=== PATIENT | female | born 1975 | race Caucasian/White ===

== ENCOUNTER 2017-03-22 16:53 | Inpatient (IN) | payer SELFPAY ==
--- NOTE | 2017-03-22 17:43 | ER Document Report ---
ED Medical Screen (RME) - General Chief Complaint: Abdominal Pain Stated Complaint: ABDOMINAL PAIN Time Seen by Provider: 03/22/17 17:42 Notes: Patient had gastric bypass in 2004 and a cholecystectomy. She states she has chronic diarrhea. She states her diarrhea is worse than normal yesterday so she took several Imodium. After this she began to have severe abdominal pain with some nausea and vomiting. TRAVEL OUTSIDE OF THE [place] IN LAST 30 DAYS: No - Related Data Allergies/Adverse Reactions: Penicillins Allergy (Verified 03/22/17 16:58) Past Medical History Renal/ Medical History: Denies: Hx Peritoneal Dialysis Physical Exam - Vital signs Vitals: Temp Pulse Resp BP Pulse Ox 89.5 F L 105 H 16 150/92 H 100 03/22/17 16:55 03/22/17 16:55 03/22/17 16:55 03/22/17 16:55 03/22/17 16:55 Course - Vital Signs Vital signs: Temp Pulse Resp BP Pulse Ox 89.5 F L 105 H 16 150/92 H 100 03/22/17 16:55 03/22/17 16:55 03/22/17 16:55 03/22/17 16:55 03/22/17 16:55
[2017-03-22 18:24] LABS: ABSOLUTE LYMPHOCYTES (AUTO) 0.9 10^3/uL (0.5-4.7); ABSOLUTE MONOCYTES (AUTO) 0.7 10^3/uL (0.1-1.4); ABSOLUTE NEUT (AUTO) 6.4 10^3/uL (1.7-8.2); BASOPHILS % (AUTO) 0.3 % (0-2); EOSINOPHILS % (AUTO) 0.6 % (0-6); HEMATOCRIT 43.5 % (36.0-47.0); HEMOGLOBIN 14.8 g/dL (12.0-15.5); HGB HCT DIFFERENCE 0.9; LYMPHOCYTES % (AUTO) 10.9 % (13-45); MEAN CORPUSCULAR HEMOGLOBIN 35.3 pg (27.0-33.4); MEAN CORPUSCULAR HGB CONC 34.1 g/dL (32.0-36.0); MEAN CORPUSCULAR VOLUME 103 fl (80-97); MONOCYTES % (AUTO) 8.4 % (3-13); RED BLOOD COUNT 4.21 10^6/uL (3.72-5.28); RED CELL DISTRIBUTION WIDTH 20.4 % (11.5-14.0); SEGMENTED NEUTROPHILS % (AUTO) 79.8 % (42-78)
[2017-03-22] MEDS ORDERED: DICYCLOMINE HCL INJ 20 MG/2 ML AMPULE IM ONE (18:30)
--- NOTE | 2017-03-22 18:30 | ER Document Report ---
ED General - General Chief Complaint: Abdominal Pain Stated Complaint: ABDOMINAL PAIN Time Seen by Provider: 03/22/17 17:42 Mode of Arrival: Ambulatory Information source: Patient Notes: 41-year-old female history of gastric bypass cholecystectomy resents with complaints of abdominal cramping. Patient notes that she always has diarrhea took to antidiarrheal medications [id number] and since then has been feeling that she is constipated and bloated. Patient denies any fevers or chills patient states she vomited a little TRAVEL OUTSIDE OF THE [place] IN LAST 30 DAYS: No - HPI Onset: This morning - 2 AM Onset/Duration: Sudden Quality of pain: Cramping Severity: Mild Pain Level: 1 Associated symptoms: Diarrhea, Nausea, Vomiting Exacerbated by: Denies Relieved by: Denies Similar symptoms previously: No Recently seen / treated by doctor: No - Related Data Allergies/Adverse Reactions: Penicillins Allergy (Verified 03/22/17 16:58) Past Medical History - Social History Smoking Status: Current Every Day Smoker Cigarette use (# per day): Yes Chew tobacco use (# tins/day): No Smoking Education Provided: No Frequency of alcohol use: None Drug Abuse: None Family History: Reviewed & Not Pertinent Renal/ Medical History: Denies: Hx Peritoneal Dialysis Past Surgical History: Reports: Hx Abdominal Surgery - gastric bypass, Hx Cholecystectomy Review of Systems - Review of Systems Notes: REVIEW OF SYSTEMS: CONSTITUTIONAL : Denies fever, chills, or sweats. Denies recent illness. EENT: Denies eye, ear, throat, or mouth pain or symptoms. Denies nasal or sinus congestion or discharge. Denies throat, tongue, or mouth swelling or difficulty swallowing. CARDIOVASCULAR: Denies chest pain. Denies palpitations or racing or irregular heart beat. Denies ankle edema. RESPIRATORY: Denies cough, cold, or chest congestion. Denies shortness of breath, difficulty breathing, or wheezing. GASTROINTESTINAL: Admits to nausea vomiting abdominal cramping GENITOURINARY: Denies difficulty urinating, painful urination, burning, frequency, blood in urine, or discharge. FEMALE GENITOURINARY: Denies vaginal bleeding, heavy or abnormal periods, irregular periods. Denies vaginal discharge or odor. MUSCULOSKELETAL: Denies back or neck pain or stiffness. Denies joint pain or swelling. SKIN: Denies rash, lesions or sores. HEMATOLOGIC : Denies easy bruising or bleeding. LYMPHATIC: Denies swollen, enlarged glands. NEUROLOGICAL: Denies confusion or altered mental status. Denies passing out or loss of consciousness. Denies dizziness or lightheadedness. Denies headache. Denies weakness or paralysis or loss of use of either side. Denies problems with gait or speech. Denies sensory loss, numbness, or tingling. Denies seizures. PSYCHIATRIC: Denies anxiety or stress. Denies depression, suicidal ideation, or homicidal ideation. ALL OTHER SYSTEMS REVIEWED AND NEGATIVE. PHYSICAL EXAMINATION: GENERAL: Well-appearing, well-nourished and in no acute distress. HEAD: Atraumatic, normocephalic. EYES: Pupils equal round and reactive to light, extraocular movements intact, conjunctiva are normal. ENT: Nares patent, oropharynx clear without exudates. Moist mucous membranes. NECK: Normal range of motion, supple without lymphadenopathy LUNGS: Breath sounds clear to auscultation bilaterally and equal. No wheezes rales or rhonchi. HEART: Regular rate and rhythm without murmurs ABDOMEN: Soft, tender in the left upper quadrant Female : deferred Musculoskeletal: Normal range of motion, no pitting or edema. No cyanosis. NEUROLOGICAL: Cranial nerves grossly intact. Normal speech, normal gait. Normal sensory, motor exams PSYCH: Normal mood, normal affect. SKIN: Warm, Dry, normal turgor, no rashes or lesions noted. Dictation was performed using Outline voice recognition software Physical Exam - Vital signs Vitals: Temp Pulse Resp BP Pulse Ox 98.5 F 105 H 16 150/92 H 100 03/22/17 16:55 03/22/17 16:55 03/22/17 16:55 03/22/17 16:55 03/22/17 16:55 Course - Re-evaluation Re-evalutation: 03/22/17 18:30 Patient overall looks quite well x-ray pending 03/22/17 18:56 Patient is noted to have pancreatitis she does admit to drinking yesterday has had no history of pancreatitis in the past 03/22/17 19:23 Patient will be observed in the hospital for acute pancreatitis - Vital Signs Vital signs: Temp Pulse Resp BP Pulse Ox 98.0 F 105 H 16 150/92 H 100 03/22/17 18:17 03/22/17 16:55 03/22/17 16:55 03/22/17 16:55 03/22/17 16:55 - Laboratory Result Diagrams: 03/22/17 17:55 03/22/17 17:55 Laboratory results interpreted by me: 03/22/17 03/22/17 03/22/17 17:55 17:55 17:55 MCV 103 H MCH 35.3 H RDW 20.4 H Seg Neutrophils % 79.8 H Lymphocytes % 10.9 L Sodium 136.4 L Potassium 3.5 L BUN 6 L AST 65 H Alkaline Phosphatase 208 H Lipase 3009.6 H Urine Blood LARGE H - Diagnostic Test Radiology reviewed: Image reviewed, Reports reviewed
[2017-03-22 18:38] LABS: ALANINE AMINOTRANSFERASE 36 U/L (9-52); ALBUMIN 3.5 g/dL (3.5-5.0); ALKALINE PHOSPHATASE 208 U/L (38-126); ANION GAP 10 (5-19); ASPARTATE AMINO TRANSFERASE 65 U/L (14-36); BILIRUBIN,DIRECT 0.4 mg/dL (0.0-0.4); BILIRUBIN,TOTAL 1.1 mg/dL (0.2-1.3); BLOOD UREA NITROGEN 6 mg/dL (7-20); CALCIUM 8.7 mg/dL (8.4-10.2); CARBON DIOXIDE 27 mmol/L (22-30); CHLORIDE 99 mmol/L (98-107); CREATININE RESULT 0.55 mg/dL (0.52-1.25); GLUCOSE 109 mg/dL (75-110); POTASSIUM 3.5 mmol/L (3.6-5.0); SODIUM 136.4 mmol/L (137-145); TOTAL PROTEIN 6.8 g/dL (6.3-8.2)
[2017-03-22 18:39] LABS: APPEARANCE,URINE CLEAR; BILIRUBIN,URINE NEGATIVE (NEGATIVE); GLUCOSE, URINE NEGATIVE (NEGATIVE); KETONES,URINE NEGATIVE (NEGATIVE); LEUKOCYTE ESTERASE,URINE NEGATIVE (NEGATIVE); NITRITE,URINE NEGATIVE (NEGATIVE); PROTEIN,URINE NEGATIVE (NEGATIVE); URINE SPECIFIC GRAVITY 1.017; UROBILINOGEN,URINE NEGATIVE mg/dL (<2.0)
[2017-03-22 18:48] LABS: LIPASE 3009.6 U/L (23-300)
[2017-03-22] MEDS ORDERED: HYDROMORPHONE HCL INJ/PF 2 MG/ML AMPULE IV ONE (18:52)
[2017-03-22] MEDS: NORMAL SALINE 1000 ML 1,000 ML IV PRN ×2 (19:15→21:30)
--- NOTE | 2017-03-22 19:20 | RADIOLOGY REPORT (SQ) ---
EXAM DESCRIPTION: ACUTE ABDOMEN SERIES COMPLETED DATE/TIME: 03/22/2017 7:04 pm REASON FOR STUDY: n/v abd pain COMPARISON: None. NUMBER OF VIEWS: Three views. TECHNIQUE: PA chest, supine abdomen and upright/decubitus abdomen radiographic images acquired. LIMITATIONS: None. FINDINGS: CHEST: Lungs clear of infiltrates. FREE AIR: None. No abnormal gas collections. BOWEL GAS PATTERN: Few scattered small bowel loops with air fluid levels. No distended large or small bowel loops. CALCIFICATIONS: No suspicious calcifications. HARDWARE: Cholecystectomy clips. Suture material in the left upper quadrant. SOFT TISSUES: No gross mass or suggestion of organomegaly. BONES: No acute fracture. No worrisome bone lesions. OTHER: No other significant finding. IMPRESSION: NONSPECIFIC BOWEL GAS PATTERN WITHOUT EVIDENCE FOR OBSTRUCTION. TECHNICAL DOCUMENTATION: JOB ID: [id number] [employer]- All Rights Reserved
[2017-03-22] MEDS ORDERED: ONDANSETRON HCL INJ/PF 4 MG/2 ML SDV IV PRN (19:24)
[2017-03-22] MEDS ORDERED: IPRATROPIUM/ALBUTEROL 0.5-2.5 MG/3 ML AMPUL NEB PRN (19:24)
[2017-03-22] MEDS: NORMAL SALINE 1000 ML 1,000 ML IV SCH (22:33)
[2017-03-22] MEDS: KETOROLAC TROMETHAMINE INJ/PF 30 MG/1 ML SDV IV PRN (22:33)
[2017-03-22] MEDS: HEPARIN SOD (PORCINE) 5,000 UNIT/ML 1 ML SYRINGE SUBCUT SCH (22:33)
[2017-03-22] MEDS: MAGNESIUM SULFATE/D5W 1 GM/100 ML RTUPB IV SCH (22:33)
[2017-03-23] MEDS: MAGNESIUM SULFATE/D5W 1 GM/100 ML RTUPB IV SCH (01:25)
[2017-03-23] MEDS ORDERED: INFLUENZA ADLT QUAD (36MOS+) 2017-18 VAC 0.5 ML SYR IM PRN ×2 (01:43→09:30)
[2017-03-23] MEDS: KETOROLAC TROMETHAMINE INJ/PF 30 MG/1 ML SDV IV PRN ×2 (03:46→11:11)
[2017-03-23] MEDS: NORMAL SALINE 1000 ML 1,000 ML IV SCH (05:13)
[2017-03-23] MEDS: HEPARIN SOD (PORCINE) 5,000 UNIT/ML 1 ML SYRINGE SUBCUT SCH ×3 (05:34→21:34)
[2017-03-23 06:12] LABS: ABSOLUTE EOSINOPHILS # (AUTO) 0.1 10^3/uL (0.0-0.6); ABSOLUTE LYMPHOCYTES (AUTO) 0.6 10^3/uL (0.5-4.7); ABSOLUTE MONOCYTES (AUTO) 0.4 10^3/uL (0.1-1.4); ABSOLUTE NEUT (AUTO) 3.5 10^3/uL (1.7-8.2); BASOPHILS % (AUTO) 0.3 % (0-2); EOSINOPHILS % (AUTO) 1.7 % (0-6); HEMATOCRIT 35.7 % (36.0-47.0); HGB HCT DIFFERENCE 0.6; LYMPHOCYTES % (AUTO) 13.9 % (13-45); MEAN CORPUSCULAR HEMOGLOBIN 35.1 pg (27.0-33.4); MEAN CORPUSCULAR HGB CONC 33.9 g/dL (32.0-36.0); MEAN CORPUSCULAR VOLUME 104 fl (80-97); MONOCYTES % (AUTO) 9.4 % (3-13); RED BLOOD COUNT 3.45 10^6/uL (3.72-5.28); RED CELL DISTRIBUTION WIDTH 20.3 % (11.5-14.0); SEGMENTED NEUTROPHILS % (AUTO) 74.7 % (42-78); WHITE BLOOD COUNT 4.7 10^3/uL (4.0-10.5)
[2017-03-23 06:33] LABS: ALANINE AMINOTRANSFERASE 42 U/L (9-52); ALBUMIN 2.3 g/dL (3.5-5.0); ALKALINE PHOSPHATASE 179 U/L (38-126); ANION GAP 6 (5-19); ASPARTATE AMINO TRANSFERASE 75 U/L (14-36); BILIRUBIN,DIRECT 0.5 mg/dL (0.0-0.4); BLOOD UREA NITROGEN 6 mg/dL (7-20); CALCIUM 7.6 mg/dL (8.4-10.2); CARBON DIOXIDE 25 mmol/L (22-30); CHLORIDE 105 mmol/L (98-107); CREATININE RESULT 0.47 mg/dL (0.52-1.25); GLUCOSE 88 mg/dL (75-110); POTASSIUM 3.2 mmol/L (3.6-5.0); SODIUM 136.4 mmol/L (137-145); TOTAL PROTEIN 4.7 g/dL (6.3-8.2)
[2017-03-23] MEDS ORDERED: LORAZEPAM INJ 2 MG/1 ML VIAL IV PRN (06:36)
--- NOTE | 2017-03-23 06:36 | PDOC H&P ---
History of Present Illness Admission Date/PCP: 03/22/17 19:24 Patient complains of: Epigastric pain History of Present Illness: FEDE IYER is a 41 year old female with past medical history of tobacco and alcohol, status post gastric bypass and cholecystectomy. Patient been her usual state of health until approximately 12 hours prior to presentation with epigastric pain nausea and loose stools after alcohol. Patient denies previous episode. Pain is dull in nature without radiation to the back but exacerbated by p.o. intake. In the emergency room she is found to have a lipase of 3000 and referred to the hospitalist for admission. Past Medical History Psychiatric Medical History: Reports: Alcohol Dependency, Tobacco Dependency Past Surgical History Past Surgical History: Reports: Cholecystectomy, Gastric Bypass Surgery Social History Information Source: Patient Smoking Status: Current Every Day Smoker Frequency of Alcohol Use: Social Drugs: None - Advance Directive Resuscitation Status: Full Code Family History Family History: Hypertension, Other - Breast cancer Parental Family History Reviewed: Yes Children Family History Reviewed: Yes Sibling(s) Family History Reviewed.: Yes Medication/Allergy Home Medications: No Home Medications 03/22/17 Allergies/Adverse Reactions: Penicillins Allergy (Verified 03/22/17 16:58) Review of Systems Constitutional: ABSENT: chills, fever(s), headache(s), weight gain, weight loss Eyes: ABSENT: visual disturbances Ears: ABSENT: hearing changes Cardiovascular: ABSENT: chest pain, dyspnea on exertion, edema, orthropnea, palpitations Respiratory: ABSENT: cough, hemoptysis Gastrointestinal: ABSENT: abdominal pain, constipation, diarrhea, hematemesis, hematochezia, nausea, vomiting Genitourinary: ABSENT: dysuria, hematuria Musculoskeletal: ABSENT: joint swelling Integumentary: ABSENT: rash, wounds Neurological: ABSENT: abnormal gait, abnormal speech, confusion, dizziness, focal weakness, syncope Psychiatric: ABSENT: anxiety, depression, homidical ideation, suicidal ideation Endocrine: ABSENT: cold intolerance, heat intolerance, polydipsia, polyuria Hematologic/Lymphatic: ABSENT: easy bleeding, easy bruising Physical Exam Vital Signs: Temp Pulse Resp BP Pulse Ox 98.3 F 84 16 139/95 H 98 03/22/17 22:33 03/22/17 22:33 03/22/17 22:33 03/22/17 22:33 03/22/17 22:33 Intake & Output 10/03/2803/22/17 03/23/17 11:59 11:59 11:59 Intake Total 0 Balance 0 Weight 63.7 kg General appearance: PRESENT: no acute distress, well-developed, well-nourished Head exam: PRESENT: atraumatic, normocephalic Eye exam: PRESENT: conjunctiva pink, EOMI, PERRLA. ABSENT: scleral icterus Ear exam: PRESENT: normal external ear exam Mouth exam: PRESENT: moist, tongue midline Neck exam: ABSENT: carotid bruit, JVD, lymphadenopathy, thyromegaly Respiratory exam: PRESENT: clear to auscultation yadiel. ABSENT: rales, rhonchi, wheezes Cardiovascular exam: PRESENT: RRR. ABSENT: diastolic murmur, rubs, systolic murmur Pulses: PRESENT: normal dorsalis pedis pul Vascular exam: PRESENT: normal capillary refill GI/Abdominal exam: PRESENT: normal bowel sounds, soft, tenderness - Epigastric pain. ABSENT: distended, guarding, mass, organolmegaly, rebound Rectal exam: PRESENT: deferred Extremities exam: PRESENT: full ROM. ABSENT: calf tenderness, clubbing, pedal edema Neurological exam: PRESENT: alert, awake, oriented to person, oriented to place , oriented to time, oriented to situation, CN II-XII grossly intact. ABSENT: motor sensory deficit Psychiatric exam: PRESENT: appropriate affect, normal mood. ABSENT: homicidal ideation, suicidal ideation Skin exam: PRESENT: dry, intact, warm. ABSENT: cyanosis, rash Results Impressions: Acute Abdomen Series 03/22/17 18:27 IMPRESSION: NONSPECIFIC BOWEL GAS PATTERN WITHOUT EVIDENCE FOR OBSTRUCTION. Assessment & Plan - Diagnosis (1) Pancreatitis, alcoholic, acute Is this a current diagnosis for this admission?: Yes Plan: Admitted for admission, bowel rest, symptomatic management, IV fluids, electrolyte repletion and education (2) Alcohol dependence Is this a current diagnosis for this admission?: Yes Plan: Thiamine, folate and benzodiazepine as needed (3) Tobacco dependence Is this a current diagnosis for this admission?: Yes Plan: Tobacco Dependence patient received tobacco cessation counseling and offered nicotine replacement options - Time Time Spent: 50 to 70 Minutes - Inpatient Certification Medical Necessity: Need Close Monitoring Due to Risk of Patient Decompensation
[2017-03-23] MEDS ORDERED: FOLIC ACID INJ 5 MG/1 ML 10 ML VIAL IV PRN (06:47)
[2017-03-23] MEDS ORDERED: THIAMINE HCL INJ 200 MG/2 ML VIAL IV PRN (06:47)
[2017-03-23] MEDS ORDERED: THIAMINE HCL 100 MG, FOLIC ACID 1 MG in NORMAL SALINE 250 ML IV ONE (07:00)
[2017-03-23 07:23] LABS: HEMOGLOBIN 12.1 g/dL (12.0-15.5)
[2017-03-23] MEDS: POTASSI CL 20 MEQ/50 ML RIDER 20 MEQ/50 ML RTUPB IV SCH ×2 (08:49→11:11)
[2017-03-23] MEDS: HYDROMORPHONE HCL INJ/PF 2 MG/ML AMPULE IV PRN ×4 (09:25→22:50)
[2017-03-23] MEDS ORDERED: ONDANSETRON HCL INJ/PF 4 MG/2 ML SDV IV PRN (09:30)
[2017-03-23] MEDS ORDERED: IPRATROPIUM/ALBUTEROL 0.5-2.5 MG/3 ML AMPUL NEB PRN (09:30)
--- NOTE | 2017-03-23 10:05 | PDOC PROGRESS REPORT ---
Subjective Progress Note for:: 03/23/17 Subjective:: Complains of upper abdominal pain. Physical Exam Vital Signs: Temp Pulse Resp BP Pulse Ox 98.5 F 83 17 123/79 99 03/23/17 07:14 03/23/17 07:14 03/23/17 07:14 03/23/17 07:14 03/23/17 07:14 Intake & Output 03/22/17 03/23/17 03/24/17 06:59 06:59 06:59 Intake Total 0 Balance 0 Weight 63.7 kg General appearance: PRESENT: no acute distress Eye exam: PRESENT: conjunctiva pink. ABSENT: scleral icterus Mouth exam: PRESENT: moist, tongue midline Neck exam: ABSENT: carotid bruit, JVD, lymphadenopathy, thyromegaly Respiratory exam: PRESENT: clear to auscultation yadiel. ABSENT: rales, rhonchi, wheezes Cardiovascular exam: PRESENT: RRR. ABSENT: diastolic murmur, rubs, systolic murmur GI/Abdominal exam: PRESENT: normal bowel sounds, soft, tenderness - Upper abdominal tenderness. ABSENT: distended, guarding, mass, organolmegaly, rebound Extremities exam: ABSENT: calf tenderness, clubbing, pedal edema Neurological exam: PRESENT: alert, awake, oriented to person, oriented to place , oriented to time, oriented to situation, CN II-XII grossly intact. ABSENT: motor sensory deficit Psychiatric exam: PRESENT: appropriate affect Skin exam: PRESENT: dry, intact, warm. ABSENT: cyanosis, rash Results Laboratory Results: 03/23/17 05:07 03/23/17 05:07 03/23/17 03/23/17 05:07 05:07 WBC 4.7 RBC 3.45 L Hgb 12.1 D Hct 35.7 L MCV 104 H MCH 35.1 H MCHC 33.9 RDW 20.3 H Plt Count 134 L Seg Neutrophils % 74.7 Lymphocytes % 13.9 Monocytes % 9.4 Eosinophils % 1.7 Basophils % 0.3 Absolute Neutrophils 3.5 Absolute Lymphocytes 0.6 Absolute Monocytes 0.4 Absolute Eosinophils 0.1 Absolute Basophils 0.0 Sodium 136.4 L Potassium 3.2 L Chloride 105 Carbon Dioxide 25 Anion Gap 6 BUN 6 L Creatinine 0.47 L Est GFR ( Amer) > 60 Est GFR (Non-Af Amer) > 60 Glucose 88 Calcium 7.6 L Total Bilirubin 1.0 AST 75 H ALT 42 Alkaline Phosphatase 179 H Total Protein 4.7 L Albumin 2.3 L Impressions: Acute Abdomen Series 03/22/17 18:27 IMPRESSION: NONSPECIFIC BOWEL GAS PATTERN WITHOUT EVIDENCE FOR OBSTRUCTION. Assessment & Plan - Diagnosis (1) Pancreatitis, alcoholic, acute Is this a current diagnosis for this admission?: Yes Plan: Patient has continued pain. Will add on Dilaudid. Continue n.p.o. and IV fluids. (2) Alcohol dependence Is this a current diagnosis for this admission?: Yes Plan: No evidence for delirium tremens. (3) Tobacco dependence Is this a current diagnosis for this admission?: Yes Plan: Patient is encouraged to quit. (4) Hypokalemia Is this a current diagnosis for this admission?: Yes Plan: We will give potassium replacements and monitor. - Time Time Spent with patient: 25-34 minutes - Inpatient Certification Medical Necessity: Need for Pain Control, Need for IV Antibiotics
[2017-03-23] MEDS: THIAMINE HCL 100 MG, FOLIC ACID 1 MG in NORMAL SALINE 250 ML IV SCH (14:09)
[2017-03-23] MEDS ORDERED: NORMAL SALINE 1000 ML 1,000 ML IV PRN (18:46)
[2017-03-24] MEDS: HYDROMORPHONE HCL INJ/PF 2 MG/ML AMPULE IV PRN (02:55)
[2017-03-24 04:49] LABS: ABSOLUTE EOSINOPHILS # (AUTO) 0.1 10^3/uL (0.0-0.6); ABSOLUTE LYMPHOCYTES (AUTO) 0.8 10^3/uL (0.5-4.7); ABSOLUTE MONOCYTES (AUTO) 0.4 10^3/uL (0.1-1.4); ABSOLUTE NEUT (AUTO) 3.6 10^3/uL (1.7-8.2); BASOPHILS % (AUTO) 0.2 % (0-2); EOSINOPHILS % (AUTO) 2.5 % (0-6); HEMATOCRIT 33.5 % (36.0-47.0); HEMOGLOBIN 11.3 g/dL (12.0-15.5); HGB HCT DIFFERENCE 0.4; LYMPHOCYTES % (AUTO) 16.8 % (13-45); MEAN CORPUSCULAR HEMOGLOBIN 35.6 pg (27.0-33.4); MEAN CORPUSCULAR HGB CONC 33.7 g/dL (32.0-36.0); MEAN CORPUSCULAR VOLUME 106 fl (80-97); MONOCYTES % (AUTO) 8.5 % (3-13); RED BLOOD COUNT 3.17 10^6/uL (3.72-5.28); RED CELL DISTRIBUTION WIDTH 20.2 % (11.5-14.0)
[2017-03-24 05:07] LABS: ANION GAP 8 (5-19); BLOOD UREA NITROGEN 5 mg/dL (7-20); CALCIUM 7.7 mg/dL (8.4-10.2); CARBON DIOXIDE 20 mmol/L (22-30); CHLORIDE 110 mmol/L (98-107); CREATININE RESULT 0.44 mg/dL (0.52-1.25); GLUCOSE 55 mg/dL (75-110); LIPASE 412.1 U/L (23-300); MAGNESIUM 1.8 mg/dL (1.6-2.3); POTASSIUM 3.8 mmol/L (3.6-5.0); SODIUM 137.5 mmol/L (137-145)
[2017-03-24] MEDS: HEPARIN SOD (PORCINE) 5,000 UNIT/ML 1 ML SYRINGE SUBCUT SCH ×3 (05:26→21:02)
[2017-03-24] MEDS ORDERED: THIAMINE HCL 100 MG, FOLIC ACID 1 MG in NORMAL SALINE 250 ML IV SCH (06:00)
[2017-03-24] MEDS: KETOROLAC TROMETHAMINE INJ/PF 30 MG/1 ML SDV IV PRN (07:30)
[2017-03-24] MEDS: THIAMINE HCL 100 MG, FOLIC ACID 1 MG in NORMAL SALINE 250 ML IV SCH (09:45)
--- NOTE | 2017-03-24 14:48 | PDOC PROGRESS REPORT ---
Subjective Progress Note for:: 03/24/17 Subjective:: Complains of upper abdominal pain. Physical Exam Vital Signs: Temp Pulse Resp BP Pulse Ox 98.6 F 71 16 128/77 H 94 03/24/17 11:43 03/24/17 12:36 03/24/17 12:36 03/24/17 11:43 03/24/17 12:36 Intake & Output 03/23/17 03/24/17 03/25/17 06:59 06:59 06:59 Weight 67.8 kg General appearance: PRESENT: no acute distress Eye exam: PRESENT: conjunctiva pink. ABSENT: scleral icterus Mouth exam: PRESENT: moist, tongue midline Neck exam: ABSENT: JVD Respiratory exam: PRESENT: clear to auscultation yadiel. ABSENT: rales, rhonchi, wheezes Cardiovascular exam: PRESENT: RRR. ABSENT: diastolic murmur, rubs, systolic murmur GI/Abdominal exam: PRESENT: normal bowel sounds, soft, tenderness - Moderate left upper quadrant tenderness.. ABSENT: distended, guarding, mass, organolmegaly, rebound Extremities exam: ABSENT: calf tenderness, clubbing, pedal edema Neurological exam: PRESENT: alert, awake, oriented to person, oriented to place , oriented to time, oriented to situation, CN II-XII grossly intact. ABSENT: motor sensory deficit Psychiatric exam: PRESENT: appropriate affect Skin exam: PRESENT: dry, intact, warm. ABSENT: cyanosis, rash Results Laboratory Results: 03/24/17 04:10 03/24/17 04:10 03/24/17 03/24/17 04:10 04:10 WBC 5.0 RBC 3.17 L Hgb 11.3 L Hct 33.5 L MCV 106 H MCH 35.6 H MCHC 33.7 RDW 20.2 H Plt Count 150 Seg Neutrophils % 72.0 Lymphocytes % 16.8 Monocytes % 8.5 Eosinophils % 2.5 Basophils % 0.2 Absolute Neutrophils 3.6 Absolute Lymphocytes 0.8 Absolute Monocytes 0.4 Absolute Eosinophils 0.1 Absolute Basophils 0.0 Sodium 137.5 Potassium 3.8 Chloride 110 H Carbon Dioxide 20 L Anion Gap 8 BUN 5 L Creatinine 0.44 L Est GFR ( Amer) > 60 Est GFR (Non-Af Amer) > 60 Glucose 55 L Calcium 7.7 L Magnesium 1.8 Lipase 412.1 H Impressions: Acute Abdomen Series 03/22/17 18:27 IMPRESSION: NONSPECIFIC BOWEL GAS PATTERN WITHOUT EVIDENCE FOR OBSTRUCTION. Assessment & Plan - Diagnosis (1) Pancreatitis, alcoholic, acute Is this a current diagnosis for this admission?: Yes Plan: Patient reports decrease in pain. Will start on a diet today to see how she tolerates it. (2) Alcohol dependence Is this a current diagnosis for this admission?: Yes Plan: No evidence for delirium tremens. (3) Tobacco dependence Is this a current diagnosis for this admission?: Yes Plan: Patient is encouraged to quit. (4) Hypokalemia Is this a current diagnosis for this admission?: Yes Plan: Resolved. - Time Time Spent with patient: 25-34 minutes - Inpatient Certification Medical Necessity: Need for Pain Control
[2017-03-24] MEDS: OXYCODONE HCL IR 5 MG TABLET PO PRN ×2 (15:58→22:09)
[2017-03-25 00:07] VITALS: BP 114/81
[2017-03-25 04:34] LABS: ABSOLUTE EOSINOPHILS # (AUTO) 0.1 10^3/uL (0.0-0.6); ABSOLUTE MONOCYTES (AUTO) 0.5 10^3/uL (0.1-1.4); ABSOLUTE NEUT (AUTO) 2.8 10^3/uL (1.7-8.2); BASOPHILS % (AUTO) 0.5 % (0-2); EOSINOPHILS % (AUTO) 2.5 % (0-6); HEMATOCRIT 31.9 % (36.0-47.0); HEMOGLOBIN 10.9 g/dL (12.0-15.5); HGB HCT DIFFERENCE 0.8; LYMPHOCYTES % (AUTO) 23.4 % (13-45); MEAN CORPUSCULAR HEMOGLOBIN 35.1 pg (27.0-33.4); MEAN CORPUSCULAR HGB CONC 34.2 g/dL (32.0-36.0); MEAN CORPUSCULAR VOLUME 103 fl (80-97); MONOCYTES % (AUTO) 10.2 % (3-13); RED CELL DISTRIBUTION WIDTH 19.8 % (11.5-14.0); SEGMENTED NEUTROPHILS % (AUTO) 63.4 % (42-78); WHITE BLOOD COUNT 4.4 10^3/uL (4.0-10.5)
[2017-03-25 04:59] LABS: ANION GAP 8 (5-19); BLOOD UREA NITROGEN 4 mg/dL (7-20); CARBON DIOXIDE 22 mmol/L (22-30); CHLORIDE 108 mmol/L (98-107); CREATININE RESULT 0.49 mg/dL (0.52-1.25); GLUCOSE 83 mg/dL (75-110); LIPASE 515.3 U/L (23-300); MAGNESIUM 1.8 mg/dL (1.6-2.3); POTASSIUM 3.8 mmol/L (3.6-5.0); SODIUM 137.7 mmol/L (137-145)
[2017-03-25] MEDS: HEPARIN SOD (PORCINE) 5,000 UNIT/ML 1 ML SYRINGE SUBCUT SCH (05:56)
--- NOTE | 2017-03-25 10:05 | PDOC DISCHARGE SUMMARY ---
General - Admit/Disc Date/PCP Admission Date/Primary Care Provider: 03/23/17 13:11 Discharge Date: 03/25/17 - Discharge Diagnosis (1) Pancreatitis, alcoholic, acute Is this a current diagnosis for this admission?: Yes (2) Alcohol dependence Is this a current diagnosis for this admission?: Yes (3) Tobacco dependence Is this a current diagnosis for this admission?: Yes (4) Hypokalemia Is this a current diagnosis for this admission?: Yes - Additional Information Resuscitation Status: Full Code Discharge Diet: Regular Discharge Activity: Activity As Tolerated Home Medications: Flu Vacc [id number] Up/Pf [Fluzone Adlt Quad [id number] Vac 0.5 ml Syr] 0.5 ml IM .AT DISCHARGE PRN disp.syrin 03/25/17 Oxycodone HCl [Oxy-Ir 5 mg Tablet] 5 mg PO Q6HP PRN #14 tablet 03/25/17 History of Present Illness History of Present Illness: FEDE IYER is a 41 year old female with a history of gastric bypass who presented with abdominal pain. Patient left upper quadrant pain consistent with acute pancreatitis. Patient has been drinking significant amount of alcohol. Patient however has not had any fevers or chills. She is found to have acute pancreatitis is admitted for management of her pain. Hospital Course Hospital Course: 41-year-old female with alcohol use who presents with acute alcoholic pancreatitis. The patient was made n.p.o. and given IV fluids and IV narcotics. Patient had improvement in her pain and her IV pain medication was switched to p.o. and her diet was advanced. She was able to tolerate the diet without difficulty. The patient has been counseled that she must stop drinking any alcohol at all. She is agreeable to do this. The patient was tolerating a diet well and she will be sent home with oxycodone to use as needed. Physical Exam Vital Signs: Temp Pulse Resp BP Pulse Ox 98.3 F 81 17 114/81 100 03/25/17 08:09 03/25/17 09:01 03/25/17 09:01 03/25/17 08:09 03/25/17 09:01 Intake & Output 03/24/17 03/25/17 03/26/17 06:59 06:59 06:59 Intake Total 2710 Output Total 1100 Balance 1610 Weight 67.8 kg General appearance: PRESENT: no acute distress Eye exam: PRESENT: conjunctiva pink. ABSENT: scleral icterus Mouth exam: PRESENT: moist, tongue midline Neck exam: ABSENT: JVD Respiratory exam: PRESENT: clear to auscultation yadiel. ABSENT: rales, rhonchi, wheezes Cardiovascular exam: PRESENT: RRR. ABSENT: diastolic murmur, rubs, systolic murmur Pulses: PRESENT: normal dorsalis pedis pul GI/Abdominal exam: PRESENT: normal bowel sounds, soft. ABSENT: distended, guarding, mass, organolmegaly, rebound, tenderness Extremities exam: ABSENT: calf tenderness, clubbing, pedal edema Neurological exam: PRESENT: alert, awake, oriented to person, oriented to place , oriented to time, oriented to situation, CN II-XII grossly intact. ABSENT: motor sensory deficit Psychiatric exam: PRESENT: appropriate affect Skin exam: PRESENT: dry, intact, warm. ABSENT: cyanosis, rash Results Laboratory Results: 03/25/17 04:14 03/25/17 04:14 03/25/17 03/25/17 04:14 04:14 WBC 4.4 RBC 3.10 L Hgb 10.9 L Hct 31.9 L MCV 103 H MCH 35.1 H MCHC 34.2 RDW 19.8 H Plt Count 160 Seg Neutrophils % 63.4 Lymphocytes % 23.4 Monocytes % 10.2 Eosinophils % 2.5 Basophils % 0.5 Absolute Neutrophils 2.8 Absolute Lymphocytes 1.0 Absolute Monocytes 0.5 Absolute Eosinophils 0.1 Absolute Basophils 0.0 Sodium 137.7 Potassium 3.8 Chloride 108 H Carbon Dioxide 22 Anion Gap 8 BUN 4 L Creatinine 0.49 L Est GFR ( Amer) > 60 Est GFR (Non-Af Amer) > 60 Glucose 83 Calcium 8.0 L Magnesium 1.8 Lipase 515.3 H Impressions: Acute Abdomen Series 03/22/17 18:27 IMPRESSION: NONSPECIFIC BOWEL GAS PATTERN WITHOUT EVIDENCE FOR OBSTRUCTION. Qualifiers PATEINT BEING DISCHARGED WITH ANY OF THE FOLLOWING DIAGNOSIS?: No Plan Discharge Plan: Patient is discharged home in stable condition. Will follow up with primary care in the next 2 weeks. Patient has been counseled to abstain from alcohol. Time Spent: Less than 30 Minutes
== END 2017-03-25 08:55 | disposition home or self-care (01) | DRG 440 ==
LOC: ER 16:53 → EH 19:24 → 4N 22:08 → OBSVTOIN 03-23 13:11
PROVIDERS: ADMIT Internal Medicine; ATTEND Internal Medicine
PROC: 3E0234Z Introduction of Serum, Toxoid and Vaccine into Muscle, Percutaneous Approach (ICD-10-PCS; principal; 2017-03-25)
DX: K85.20 Alcohol induced acute pancreatitis without necrosis or infection (principal); F10.20 Alcohol dependence, uncomplicated; F17.210 Nicotine dependence, cigarettes, uncomplicated; E87.6 Hypokalemia; Z98.84 Bariatric surgery status; Z90.49 Acquired absence of other specified parts of digestive tract; Z87.891 Personal history of nicotine dependence; Z88.0 Allergy status to penicillin; Z23 Encounter for immunization
CPT/HCPCS: 36415; 74022; 80048; 80053; 81001; 81025; 83690; 83735; 85025; 96361; 96374; 99285; G0378; J1170; J1644; J1885; J2405; J3411; J3475; J3480; J3490; J7030; J7050

== ENCOUNTER 2017-05-23 12:58 | Emergency (ER) | payer SELFPAY ==
--- NOTE | 2017-05-23 13:23 | ER Document Report ---
ED Medical Screen (RME) - General Chief Complaint: Abdominal Pain Stated Complaint: BACK PAIN, ABDOMINAL PAIN Time Seen by Provider: 05/23/17 13:17 Notes: 41-year-old female patient past history of gastric bypass, cholecystectomy, admitted here on 03/22/2017 with EtOH pancreatitis. Reports family argument prompted her to drink alcohol on Monday, Monday, and Monday. Yesterday she developed pain with some vomiting in the epigastric left upper quadrant area. After the vomiting she thinks she strained her back and is having pain in the low back shooting up both sides. I have greeted and performed a rapid initial assessment of this patient. A comprehensive ED assessment and evaluation of the patient, analysis of test results and completion of the medical decision making process will be conducted by additional ED providers. TRAVEL OUTSIDE OF THE [place] IN LAST 30 DAYS: No - Related Data Allergies/Adverse Reactions: Penicillins Allergy (Verified 05/23/17 13:18) Past Medical History - Social History Chew tobacco use (# tins/day): No Frequency of alcohol use: Heavy Drug Abuse: None Renal/ Medical History: Denies: Hx Peritoneal Dialysis Past Surgical History: Reports: Hx Abdominal Surgery - gastric bypass, Hx Cholecystectomy, Hx Gastric Bypass Surgery - Immunizations History of Influenza Vaccine for 03/2017 - 08/2017 Season: No Physical Exam - Vital signs Vitals: Temp Pulse Resp BP Pulse Ox 98.9 F 113 H 18 129/93 H 96 05/23/17 13:04 05/23/17 13:04 05/23/17 13:04 05/23/17 13:04 05/23/17 13:04 Course - Vital Signs Vital signs: Temp Pulse Resp BP Pulse Ox 98.9 F 113 H 18 129/93 H 96 05/23/17 13:04 05/23/17 13:04 05/23/17 13:04 05/23/17 13:04 05/23/17 13:04
[2017-05-23 13:54] LABS: ABSOLUTE LYMPHOCYTES (AUTO) 0.9 10^3/uL (0.5-4.7); ABSOLUTE MONOCYTES (AUTO) 0.3 10^3/uL (0.1-1.4); ABSOLUTE NEUT (AUTO) 2.4 10^3/uL (1.7-8.2); BASOPHILS % (AUTO) 0.4 % (0-2); EOSINOPHILS % (AUTO) 0.6 % (0-6); HEMATOCRIT 44.1 % (36.0-47.0); HEMOGLOBIN 14.6 g/dL (12.0-15.5); HGB HCT DIFFERENCE -0.3; LYMPHOCYTES % (AUTO) 24.3 % (13-45); MEAN CORPUSCULAR HGB CONC 33.2 g/dL (32.0-36.0); MEAN CORPUSCULAR VOLUME 93 fl (80-97); RED BLOOD COUNT 4.73 10^6/uL (3.72-5.28); RED CELL DISTRIBUTION WIDTH 21.3 % (11.5-14.0); SEGMENTED NEUTROPHILS % (AUTO) 66.7 % (42-78); WHITE BLOOD COUNT 3.6 10^3/uL (4.0-10.5)
[2017-05-23 14:03] LABS: APPEARANCE,URINE CLOUDY; BILIRUBIN,URINE SMALL (NEGATIVE); GLUCOSE, URINE NEGATIVE (NEGATIVE); KETONES,URINE 20 mg/dL (NEGATIVE); LEUKOCYTE ESTERASE,URINE LARGE (NEGATIVE); NITRITE,URINE POSITIVE (NEGATIVE); PROTEIN,URINE 100 mg/dL (NEGATIVE); URINE SPECIFIC GRAVITY 1.021
[2017-05-23 14:13] LABS: ALANINE AMINOTRANSFERASE 152 U/L (9-52); ALBUMIN 4.7 g/dL (3.5-5.0); ALKALINE PHOSPHATASE 91 U/L (38-126); ANION GAP 11 (5-19); ASPARTATE AMINO TRANSFERASE 250 U/L (14-36); BILIRUBIN,DIRECT 0.7 mg/dL (0.0-0.4); BILIRUBIN,TOTAL 1.4 mg/dL (0.2-1.3); BLOOD UREA NITROGEN 3 mg/dL (7-20); CALCIUM 9.8 mg/dL (8.4-10.2); CARBON DIOXIDE 26 mmol/L (22-30); CHLORIDE 98 mmol/L (98-107); CREATININE RESULT 0.64 mg/dL (0.52-1.25); GLUCOSE 99 mg/dL (75-110); LIPASE 249.1 U/L (23-300); MAGNESIUM 1.7 mg/dL (1.6-2.3); POTASSIUM 4.1 mmol/L (3.6-5.0); TOTAL PROTEIN 8.3 g/dL (6.3-8.2)
[2017-05-23] MEDS ORDERED: CEPHALEXIN 500 MG CAPSULE PO ONE (18:28)
[2017-05-23] MEDS ORDERED: MORPHINE SULFATE IR 15 MG TABLET PO ONE (18:28)
[2017-05-23] MEDS ORDERED: IBUPROFEN 600 MG TABLET PO ONE (18:28)
[2017-05-23] MEDS ORDERED: LIDOCAINE 5% (700 MG) TRANSDERMAL ADH..PATCH TP ONE (18:30)
--- NOTE | 2017-05-23 18:40 | ER Document Report ---
ED General - General Chief Complaint: Abdominal Pain Stated Complaint: BACK PAIN, ABDOMINAL PAIN Time Seen by Provider: 05/23/17 13:17 Notes: Patient is a 41-year-old female with a past medical history of alcoholism, recurrent alcoholic hepatitis, recurrent pancreatitis who presents with 3 days of bilateral flank tenderness, suprapubic tenderness and nausea. Patient admits to heavy alcohol use on Monday through Monday but reports she has been sober yesterday and today. She describes the pain in her abdomen as being mostly localized to the suprapubic quadrant as well as her bilateral flanks. It is a dull, constant, throbbing pain. Nothing improves or worsens the pain. She states that she is uncertain of whether or not she has had similar symptoms in the past. She notes that she has been nauseated but has been able to tolerate oral intake and has not had any vomiting. No diarrhea. She does note dysuria as well as cloudy urine. She has not seen a primary care doctor regarding today's concerns. She denies any associated fever or constitutional symptoms. She has a surgical history of a gastric bypass as well as a cholecystectomy TRAVEL OUTSIDE OF THE [place] IN LAST 30 DAYS: No - Related Data Allergies/Adverse Reactions: Penicillins Allergy (Verified 05/23/17 13:18) Past Medical History - General Information source: Patient - Social History Smoking Status: Current Every Day Smoker Chew tobacco use (# tins/day): No Frequency of alcohol use: Heavy Drug Abuse: None Lives with: Family Family History: Hypertension, Other - Breast cancer Patient has suicidal ideation: No Patient has homicidal ideation: No Renal/ Medical History: Denies: Hx Peritoneal Dialysis Past Surgical History: Reports: Hx Abdominal Surgery - gastric bypass, Hx Cholecystectomy, Hx Gastric Bypass Surgery Review of Systems - Review of Systems Notes: Constitutional: Negative for fever. HENT: Negative for sore throat. Eyes: Negative for visual changes. Cardiovascular: Negative for chest pain. Respiratory: Negative for shortness of breath. Gastrointestinal: Positive for abdominal pain and nausea Genitourinary: Positive for dysuria. Musculoskeletal: Negative for back pain. Skin: Negative for rash. Neurological: Negative for headaches, weakness or numbness. 10 point ROS negative except as marked above and in HPI. Physical Exam - Vital signs Vitals: Temp Pulse Resp BP Pulse Ox 98.9 F 113 H 18 129/93 H 96 05/23/17 13:04 05/23/17 13:04 05/23/17 13:04 05/23/17 13:04 05/23/17 13:04 Interpretation: Tachycardic Notes: PHYSICAL EXAMINATION: GENERAL: Well-appearing, well-nourished and in no acute distress. HEAD: Atraumatic, normocephalic. EYES: Pupils equal round and reactive to light, extraocular movements intact, sclera anicteric, conjunctiva are normal. ENT: nares patent, oropharynx clear without exudates. Moderately dry mucous membranes. NECK: Normal range of motion, supple without lymphadenopathy LUNGS: Breath sounds clear to auscultation bilaterally and equal. No wheezes rales or rhonchi. HEART: Regular rate and rhythm without murmurs ABDOMEN: Soft, mild suprapubic tenderness as well as bilateral CVA tenderness otherwise no localized tenderness, normoactive bowel sounds. No guarding, no rebound. No masses appreciated. EXTREMITIES: Normal range of motion, no pitting or edema. No cyanosis. NEUROLOGICAL: No focal neurological deficits. Moves all extremities spontaneously and on command. PSYCH: Normal mood, normal affect. SKIN: Warm, Dry, normal turgor, no rashes or lesions noted. Course - Re-evaluation Re-evalutation: 05/23/17 18:37 Presentation is most consistent with acute pyelonephritis. Laboratories do demonstrate a large amount of white blood cells in the urine as well as bacteria. CVA tenderness is present on exam. The remainder laboratories are relatively unremarkable with the exception of a mild transaminitis consistent with acute alcohol use given the predominance of AST and patient does admit to help with alcohol use in the past 3-4 days. There is no evidence of renal dysfunction. I do not suspect an acute appendicitis, biliary pathology, pancreatitis, intra-abdominal abscess, or tubo-ovarian abscess based on history and examination. Patient is able to tolerate oral intake without difficulty. Will be discharged home on 7 day course of cephalexin. A urine culture has been sent. At this time will discharge with return precautions and follow-up recommendations. Verbal discharge instructions given a the bedside and opportunity for questions given. Medication warnings reviewed. Patient is in agreement with this plan and has verbalized understanding of return precautions and the need for primary care follow-up in the next 24-72 hours. - Vital Signs Vital signs: Temp Pulse Resp BP Pulse Ox 98.3 F 96 20 141/76 H 98 05/23/17 19:16 05/23/17 19:16 05/23/17 19:16 05/23/17 19:16 05/23/17 19:16 - Laboratory Result Diagrams: 05/23/17 13:32 05/23/17 13:32 Laboratory results interpreted by me: 05/23/17 05/23/17 05/23/17 13:32 13:32 13:32 WBC 3.6 L RDW 21.3 H Plt Count 108 L Sodium 135.0 L BUN 3 L Total Bilirubin 1.4 H Direct Bilirubin 0.7 H AST 250 H ALT 152 H Total Protein 8.3 H Urine Protein 100 H Urine Ketones 20 H Urine Blood LARGE H Urine Nitrite POSITIVE H Urine Bilirubin SMALL H Urine Urobilinogen 2.0 H Ur Leukocyte Esterase LARGE H Discharge - Discharge Clinical Impression: Acute pyelonephritis Alcoholic hepatitis Qualifiers: Ascites presence: without ascites Qualified Code(s): K70.10 - Alcoholic hepatitis without ascites Condition: Good Disposition: HOME, SELF-CARE Additional Instructions: You have been diagnosed with a condition called pyelonephritis which is an infection involving your kidneys and bladder. You have been given a dose of antibiotics here in the emergency department to help begin to treat this infection. Your also being sent home on antibiotics. Please start taking these later on today when you fill the prescription. Complete the course even if you feel better. Please return if you have persistent vomiting, pass out, have worsening pain, become unable to tolerate fluids, or have any other symptoms that are concerning to you. Please follow-up with your primary care physician in the next 24-48 hours. Please also continue to avoid alcohol some of your liver functions are elevated due to your alcohol use. Prescriptions: Metronidazole [Metrogel 0.75% Vaginal Gel] 1 applic PV QHS 5 Days #1 tube Cephalexin Monohydrate [Keflex 500 mg Capsule] 500 mg PO Q6H 7 Days capsule
[2017-05-23 19:20] VITALS: BP 141/76
== END 2017-05-23 19:10 | disposition home or self-care (01) ==
LOC: ER 12:58
DX: N10 Acute pyelonephritis (principal); K70.10 Alcoholic hepatitis without ascites; F10.20 Alcohol dependence, uncomplicated; Z98.84 Bariatric surgery status; F17.200 Nicotine dependence, unspecified, uncomplicated
CPT/HCPCS: 36415; 80053; 81001; 83690; 83735; 84703; 85025; 87086; 87088; 87186; 99284

== ENCOUNTER 2017-05-24 03:17 | Emergency (ER) | payer SELFPAY ==
[2017-05-24] MEDS ORDERED: KETOROLAC TROMETHAMINE INJ/PF 30 MG/1 ML SDV IM ONE (04:40)
[2017-05-24] MEDS ORDERED: ONDANSETRON 4 MG TAB.RAPDIS PO ONE (04:40)
--- NOTE | 2017-05-24 04:42 | ER Document Report ---
ED General - General Chief Complaint: Abdominal Pain Stated Complaint: UPPER ABDOMINAL PAIN Time Seen by Provider: 05/24/17 04:17 TRAVEL OUTSIDE OF THE [place] IN LAST 30 DAYS: No - HPI Notes: Patient is a 41-year-old female who presents the ED complaining of continued abdominal discomfort and low back pain status post discharge diagnosis with UTI <12 hours ago. Patient states that she continues to have pain that is similar to when she was evaluated here in the ED, but did not receive any pain medication and was told that she did not know what else to do because she has pain. Patient was given 1 dose her antibiotic last evening. Patient states that she was tolerating p.o. fluids without any difficulties, but last time she tried drinking some water she did become nauseous. Patient states that she has generalized abdominal discomfort without any sharp localized areas. Patient has no new concerns or complaints from when she was discharged. Denies any headache, fever, URI, sore throat, chest pain, palpitations, syncope, cough, shortness of breath, wheeze, dyspnea, diarrhea, dysuria, hematuria, loss of control of bowel or bladder, numbness/tingling, saddle anesthesia, muscle paralysis/weakness, or rash. - Related Data Allergies/Adverse Reactions: Penicillins Allergy (Verified 05/23/17 13:18) Past Medical History - Social History Smoking Status: Unknown if Ever Smoked Family History: Hypertension, Other - Breast cancer Renal/ Medical History: Denies: Hx Peritoneal Dialysis Past Surgical History: Reports: Hx Abdominal Surgery - gastric bypass, Hx Cholecystectomy, Hx Gastric Bypass Surgery Review of Systems - Review of Systems Notes: REVIEW OF SYSTEMS: CONSTITUTIONAL : Denies fever, chills, or sweats. Denies recent illness. EENT: Denies eye, ear, throat, or mouth pain or symptoms. Denies nasal or sinus congestion or discharge. Denies throat, tongue, or mouth swelling or difficulty swallowing. CARDIOVASCULAR: Denies chest pain. Denies palpitations or racing or irregular heart beat. Denies ankle edema. RESPIRATORY: Denies cough, cold, or chest congestion. Denies shortness of breath, difficulty breathing, or wheezing. GASTROINTESTINAL: see hpi GENITOURINARY: see hpi. Denies difficulty urinating, painful urination, burning, frequency, blood in urine, or discharge. MUSCULOSKELETAL: see hpi SKIN: Denies rash, lesions or sores. NEUROLOGICAL: Denies dizziness or lightheadedness. Denies headache. Denies weakness or paralysis or loss of use of either side. Denies problems with gait or speech. Denies sensory loss, numbness, or tingling. ALL OTHER SYSTEMS REVIEWED AND NEGATIVE. Dictation was performed using [employer] voice recognition software Physical Exam - Vital signs Vitals: Temp Pulse Resp BP Pulse Ox 97.9 F 84 18 141/86 H 100 05/24/17 03:19 05/24/17 03:19 05/24/17 03:19 05/24/17 03:19 05/24/17 03:19 Notes: PHYSICAL EXAMINATION: GENERAL: Well-appearing, well-nourished and in no acute distress. A&Ox4 LUNGS: Breath sounds clear to auscultation bilaterally and equal. No wheezes rales or rhonchi. HEART: Regular rate and rhythm without murmurs, rubs, gallops. ABDOMEN: Soft, nondistended abdomen. No guarding, no rebound. No masses appreciated. Normal bowel sounds present. + mild CVA tenderness bilaterally. + mild suprapubic tenderness, "pressure." Musculoskeletal: LE's b/l: FROM to passive/active. Strength 5+/5. No focal deficits. Back: FROM. Strength 5+/5. No step-offs, erythema, swelling, deformity. No vertebral point tenderness. No SI jt tenderness. Extremities: No cyanosis, clubbing, or edema b/l. Peripheral pulses 2+. Capillary refill less than 3 seconds. NEUROLOGICAL: Normal speech, normal gait. Normal sensory, motor exams PSYCH: Normal mood, normal affect. SKIN: Warm, Dry, normal turgor, no rashes or lesions noted. Course - Re-evaluation Re-evalutation: 05/24/17 05:13 Patient is an afebrile, well-hydrated, 41-year-old female who presents the ED with continued symptoms from her discharge yesterday including UTI and ongoing pain. It appears that patient has presented to the ED for pain management as she did not receive any pain medications to go home with when she was here less than [address] Hook did mention, as he saw she returned, that she is to not receive any narcotics for her pain. I am in agreement with this decision. Advised patient that her pain should improve once the antibiotics start to kick in. I will give her Zofran today as well as a Toradol injection. I will send her home with a prescription for Zofran for any recurrent nausea. Low suspicion/risk for acute appendicitis, bowel obstruction, acute cholecystitis, acute cholangitis, perforated diverticulitis, incarcerated hernia , pancreatitis, perforated ulcer, peritonitis, sepsis, pelvic inflammatory disease, ectopic , tubo-ovarian abscess, ovarian torsion, or other systemic emergent condition at this time. Patient is aware that her condition can change from initial presentation and she needs to monitor symptoms closely and seek medical attention if any acute changes. Continue the antibiotic as directed. Conservative measures otherwise for symptoms. Recheck with your PCM in 3-5 days. Consider consult with a urologist. Return to the ED with any worsening/concerning symptoms otherwise as reviewed in discharge. Patient is in agreement. - Vital Signs Vital signs: Temp Pulse Resp BP Pulse Ox 97.9 F 84 18 141/86 H 100 05/24/17 03:19 05/24/17 03:19 05/24/17 03:19 05/24/17 03:19 05/24/17 03:19 Discharge - Discharge Clinical Impression: UTI (urinary tract infection) Qualifiers: Urinary tract infection type: site unspecified Hematuria presence: without hematuria Qualified Code(s): N39.0 - Urinary tract infection, site not specified Condition: Stable Disposition: HOME, SELF-CARE Instructions: Antinausea Medication ([facility]), Urinary Tract Infection ([facility]) Additional Instructions: Push fluids (i.e. water, cranberry juice) Proper hygenic technique Keep the skin clean ibuprofen as needed May use over the counter AZO for burning with urination Take medications as directed F/u with your PCM in 3-5 days for a recheck Consider consult with a Urologist for ongoing/worsening symptoms. Return to the ED with any worsening symptoms and/or development of fever, headache, chest pain, palpitations, syncope, shortness of breath, trouble breathing, abdominal pain, n/v/d, blood in stool/urine, loss of control of bowel /bladder, urinary retention, or other worsening symptoms that are concerning to you. Prescriptions: Ondansetron [Zofran Odt 4 mg Tablet] 1 - 2 tab PO Q4H PRN #15 tab.rapdis PRN Reason: For Nausea/Vomiting Forms: Elevated Blood Pressure Referrals: [facility] [Provider Group] - Follow up as needed
[2017-05-24 05:40] VITALS: BP 123/78
== END 2017-05-24 05:40 | disposition home or self-care (01) ==
LOC: ER 03:17
DX: N39.0 Urinary tract infection, site not specified (principal); R10.9 Unspecified abdominal pain; R10.10 Upper abdominal pain, unspecified; M54.5 Low back pain
CPT/HCPCS: 99283; 96372; S0119; J1885

== ENCOUNTER 2018-07-10 14:43 | Emergency (ER) | payer SELFPAY ==
--- NOTE | 2018-07-10 15:33 | ER Document Report ---
ED Medical Screen (RME) - General Chief Complaint: Numbness Stated Complaint: NUMBNESS IN LEGS Time Seen by Provider: 07/10/18 14:48 TRAVEL OUTSIDE OF THE [place] IN LAST 30 DAYS: No - HPI Patient complains to provider of: Lower extremity numbness Notes: 07/10/18 15:31 Patient is a 42-year-old female with a history of chronic alcoholism drinking approximately 16-20 beers daily, presents to the emergency room for 2-month history of decreased sensation in her lower extremities, she reports intermittent pins and needle sensation in the upper extremities as well, denies any recent falls, no urinary retention, no low back pain On exam patient has good DP pulses bilaterally with brisk capillary refill and feet are warm to touch, she does report decreased sensation as I palpate b ilateral lower extremities from hips to feet RAPID MEDICAL EVALUATION DISCLOSURE I have seen this patient as part of a Rapid Medical Evaluation and, if applicable, placed any initially appropriate orders. The patient will be seen and fully evaluated, including a full history and physical exam, by a provider (in Main ED or Fast Track) when a room becomes available. - Related Data Allergies/Adverse Reactions: Penicillins Allergy (Verified 07/10/18 14:44) Past Medical History - Past Medical History Cardiac Medical History: Reports: Hx Congestive Heart Failure Renal/ Medical History: Denies: Hx Peritoneal Dialysis Past Surgical History: Reports: Hx Abdominal Surgery - gastric bypass, Hx Cholecystectomy, Hx Gastric Bypass Surgery - Immunizations History of Influenza Vaccine for 03/2017 - 08/2017 Season: No Physical Exam - Vital signs Vitals: Temp Pulse Resp BP Pulse Ox 98.9 F 92 15 114/81 96 07/10/18 14:46 07/10/18 14:46 07/10/18 14:46 07/10/18 14:46 07/10/18 14:46 Course - Vital Signs Vital signs: Temp Pulse Resp BP Pulse Ox 98.9 F 92 15 114/81 96 07/10/18 14:46 07/10/18 14:46 07/10/18 14:46 07/10/18 14:46 07/10/18 14:46
[2018-07-10 16:06] LABS: ABSOLUTE EOSINOPHILS # (AUTO) 0.1 10^3/uL (0.0-0.6); ABSOLUTE MONOCYTES (AUTO) 0.3 10^3/uL (0.1-1.4); EOSINOPHILS % (AUTO) 1.6 % (0-6); TOTAL CELLS COUNTED % (AUTO) 100 %
[2018-07-10 16:10] LABS: APPEARANCE,URINE SLIGHTLY-CLOUDY; BILIRUBIN,URINE NEGATIVE (NEGATIVE); COLOR,URINE YELLOW; GLUCOSE, URINE NEGATIVE (NEGATIVE); KETONES,URINE TRACE mg/dL (NEGATIVE); LEUKOCYTE ESTERASE,URINE TRACE (NEGATIVE); NITRITE,URINE NEGATIVE (NEGATIVE); PROTEIN,URINE NEGATIVE (NEGATIVE); URINE SPECIFIC GRAVITY 1.002; UROBILINOGEN,URINE NEGATIVE mg/dL (<2.0)
[2018-07-10 16:18] LABS: ABSOLUTE LYMPHOCYTES (AUTO) 1.4 10^3/uL (0.5-4.7); ABSOLUTE NEUT (AUTO) 1.8 10^3/uL (1.7-8.2); BASOPHILS % (AUTO) 0.6 % (0-2); HEMATOCRIT 39.9 % (36.0-47.0); HEMOGLOBIN 13.7 g/dL (12.0-15.5); LYMPHOCYTES % (AUTO) 39.1 % (13-45); MEAN CORPUSCULAR HGB CONC 34.4 g/dL (32.0-36.0); MEAN CORPUSCULAR VOLUME 99 fl (80-97); MONOCYTES % (AUTO) 8.4 % (3-13); PLATELET COUNT 114 10^3/uL (150-450); RED BLOOD COUNT 4.03 10^6/uL (3.72-5.28); RED CELL DISTRIBUTION WIDTH 15.3 % (11.5-14.0); SEGMENTED NEUTROPHILS % (AUTO) 50.3 % (42-78); WHITE BLOOD COUNT 3.6 10^3/uL (4.0-10.5)
[2018-07-10 16:23] LABS: ALANINE AMINOTRANSFERASE 59 U/L (9-52); ALBUMIN 4.3 g/dL (3.5-5.0); ALKALINE PHOSPHATASE 240 U/L (38-126); ANION GAP 13 (5-19); ASPARTATE AMINO TRANSFERASE 304 U/L (14-36); BILIRUBIN,DIRECT 0.4 mg/dL (0.0-0.4); BILIRUBIN,TOTAL 0.7 mg/dL (0.2-1.3); CALCIUM 8.8 mg/dL (8.4-10.2); CARBON DIOXIDE 27 mmol/L (22-30); CHLORIDE 102 mmol/L (98-107); GLUCOSE 101 mg/dL (75-110); LIPASE 524.5 U/L (23-300); POTASSIUM 3.9 mmol/L (3.6-5.0); SODIUM 141.8 mmol/L (137-145)
--- NOTE | 2018-07-10 16:29 | RADIOLOGY REPORT (SQ) ---
EXAM DESCRIPTION: L SPINE WHOLE COMPLETED DATE/TIME: 07/10/2018 4:17 pm REASON FOR STUDY: paresthesia COMPARISON: None. NUMBER OF VIEWS: Five views including obliques. TECHNIQUE: AP, lateral, oblique, and sacral radiographic images acquired of the lumbar spine. LIMITATIONS: None. FINDINGS: MINERALIZATION: Normal. SEGMENTATION: Normal. No transitional anatomy. ALIGNMENT: Normal. VERTEBRAE: Maintained height. No fracture or worrisome bone lesion. DISCS: There is mild disc narrowing from L2-S1. POSTERIOR ELEMENTS: Mild hypertrophic facet changes are present at L5-S1. HARDWARE: None in the spine. PARASPINAL SOFT TISSUES: Normal. PELVIS: Intact as visualized. No fractures or worrisome bone lesions. SI joints intact. OTHER: No other significant finding. IMPRESSION: Mild degenerative disc changes with mild facet arthropathy. TECHNICAL DOCUMENTATION: JOB ID: [id number] [employer]- All Rights Reserved Reading location - IP/workstation name: [email or web address]
[2018-07-10 16:31] LABS: BLOOD UREA NITROGEN < 2 mg/dL (7-20)
[2018-07-10 16:32] LABS: ALCOHOL 363 mg/dL (NONE DETECTED)
--- NOTE | 2018-07-10 17:41 | ER Document Report ---
ED General - General Chief Complaint: Numbness Stated Complaint: NUMBNESS IN LEGS Time Seen by Provider: 07/10/18 14:48 Primary Care Provider: [facility] [Provider Group] - Follow up as needed [facility] [Provider Group] - Follow up as needed [facility] [Provider Group] - Follow up as needed Mode of Arrival: Medic Information source: Patient Notes: 42-year-old female presented to ED for chronic alcoholism and drinking multiple beer a day. She was seen in the emergency room 2 months ago for similar symptoms. She states she has been having decreased sensation to her lower extremities with numbness starting in her toes and progressed to her feet and legs. She states she also has some pins and needles sensation in her upper extremities. She states she has not had any falls. She states she has continued to drink between 16-20 beer a day. She knows she has a history of pancreatitis and alcoholic hepatitis and she went online and looked it up and stated these are all symptoms from her alcohol. She states she came to the emergency room today to see if there was anything else going on. I have instructed her that her main concern is to stop drinking and get support to stop her drinking. She stated she would like recommendations for agencies to help her to stop her drinking. TRAVEL OUTSIDE OF THE [place] IN LAST 30 DAYS: No - HPI Onset: Other - Gradually over the last several months Onset/Duration: Gradual Quality of pain: No pain - States she has numbness sometimes has pins and needles feeling but mostly is numbness Severity: None Pain Level: Denies Associated symptoms: Nausea, Vomiting, Weakness, Other - Excessive alcohol intake with neuropathy to arms and legs Exacerbated by: Denies Relieved by: Denies Similar symptoms previously: Yes Recently seen / treated by doctor: Yes - Related Data Allergies/Adverse Reactions: Penicillins Allergy (Verified 07/10/18 14:44) Past Medical History - General Information source: Patient - Social History Smoking Status: Current Every Day Smoker Cigarette use (# per day): Yes - ppd Chew tobacco use (# tins/day): No Smoking Education Provided: Yes - 4 minutes Frequency of alcohol use: Heavy - 16-20 beer a day Drug Abuse: None Family History: Hypertension, Other - Breast cancer Patient has suicidal ideation: No Patient has homicidal ideation: No - Past Medical History Cardiac Medical History: Reports: Hx Congestive Heart Failure Pulmonary Medical History: Reports: Hx Asthma EENT Medical History: Reports: None Neurological Medical History: Reports: None Endocrine Medical History: Reports: None Renal/ Medical History: Reports: None Malignancy Medical History: Reports: None GI Medical History: Reports: Other - Pancreatitis excessive alcohol abuse Musculoskeletal Medical History: Reports Hx Muscle Spasm Skin Medical History: Reports None Psychiatric Medical History: Reports: Hx Anxiety, Hx Depression Traumatic Medical History: Reports: None Infectious Medical History: Reports: None Past Surgical History: Reports: Hx Abdominal Surgery - gastric bypass, Hx Cholecystectomy, Hx Gastric Bypass Surgery - Immunizations Immunizations up to date: Yes Review of Systems - Review of Systems Constitutional: No symptoms reported EENT: No symptoms reported Cardiovascular: No symptoms reported Respiratory: No symptoms reported Gastrointestinal: Nausea - Chronic from her alcohol, Vomiting - Chronic from her alcohol. denies: Abdominal pain Genitourinary: No symptoms reported Female Genitourinary: No symptoms reported Musculoskeletal: Other - Neuropathy hands and feet arms and legs Skin: No symptoms reported Hematologic/Lymphatic: No symptoms reported Neurological/Psychological: No symptoms reported, Numbness - Feet and legs arms and hands -: Yes All other systems reviewed and negative Physical Exam - Vital signs Vitals: Temp Pulse Resp BP Pulse Ox 98.9 F 92 15 114/81 96 07/10/18 14:46 07/10/18 14:46 07/10/18 14:46 07/10/18 14:46 07/10/18 14:46 Interpretation: Normal - General General appearance: Appears well, Alert - HEENT Head: Normocephalic, Atraumatic Eyes: Normal Pupils: PERRL - Respiratory Respiratory status: No respiratory distress Chest status: Nontender Breath sounds: Normal Chest palpation: Normal - Cardiovascular Rhythm: Regular Heart sounds: Normal auscultation Murmur: No - Abdominal Inspection: Normal Distension: No distension Bowel sounds: Normal Tenderness: Nontender. No: Tender Organomegaly: No organomegaly - Back Back: Normal, Nontender - Extremities General upper extremity: Normal inspection, Nontender, Normal color, Normal ROM, Normal temperature General lower extremity: Normal inspection, Nontender, Normal color, Normal ROM, Normal temperature, Normal weight bearing. No: Eliza's sign - Neurological Neuro grossly intact: Yes Cognition: Normal Orientation: AAOx4 Say Coma Scale Eye Opening: Spontaneous [place] Coma Scale Verbal: Oriented [place] Coma Scale Motor: Obeys Commands Say Coma Scale Total: 15 Speech: Normal Cranial nerves: Normal Cerebellar coordination: Normal Motor strength normal: LUE, RUE, LLE, RLE Additional motor exam normals: Equal dye colorist formulator Babinski reflex: Normal (flexor plantar) Sensory: Normal Biceps - Reflex grade: 2 = Normal Brachioradialis - Reflex grade: 2 = Normal Knee - Reflex grade: 2 = Normal Ankle - Reflex grade: 2 = Normal - Psychological Associated symptoms: Normal affect, Normal mood - Skin Skin Temperature: Warm Skin Moisture: Dry Skin Color: Normal Course - Re-evaluation Re-evalutation: 07/10/18 18:32 Discussed labs and x-rays with patient and written report of labs and x-rays given to patient. Patient was given referrals to [facility] for her alcohol problem. She states she needs someone to help her to quit. She was also given name and number for [facility] with her other problems. Patient is a chronic alcoholic and her pancreatitis is chronic from her alcohol intake. Patient was instructed to call a ride to go home as she cannot drive with her elevated alcohol level. Patient is alert and oriented. Patient was discharged home when her ride arrived. Patient was alert orient and able to walk out of the ed. - Vital Signs Vital signs: Temp Pulse Resp BP Pulse Ox 98.8 F 99 16 117/81 97 07/10/18 18:14 07/10/18 18:14 07/10/18 18:14 07/10/18 18:14 07/10/18 18:14 - Laboratory Result Diagrams: 07/10/18 15:57 07/10/18 15:57 Laboratory results interpreted by me: 07/10/18 07/10/18 07/10/18 15:57 15:57 15:57 WBC 3.6 L MCV 99 H MCH 34.0 H RDW 15.3 H Plt Count 114 L BUN < 2 L Creatinine 0.44 L AST 304 H ALT 59 H Alkaline Phosphatase 240 H Lipase 524.5 H Urine Ketones TRACE H Ur Leukocyte Esterase TRACE H Serum Alcohol 363 H* - Diagnostic Test Radiology reviewed: Image reviewed, Reports reviewed Discharge - Discharge Clinical Impression: Chronic pancreatitis due to acute alcohol intoxication, Neuropathy Alcohol dependence Qualifiers: Substance use status: unspecified alcohol-induced disorder Qualified Code(s): F10.29 - Alcohol dependence with unspecified alcohol-induced disorder Degenerative disc disease Qualifiers: Spinal region: lumbar Qualified Code(s): M51.36 - Other intervertebral disc degeneration, lumbar region Condition: Stable Disposition: HOME, SELF-CARE Instructions: Acute Alcohol Intoxication ([facility]), Chronic Alcoholism ([facility]), Neuropathy ([facility]), Pancreatitis ([facility]) Prescriptions: Ondansetron [Zofran Odt 4 mg Tablet] 1 tab PO Q6H #15 tab.rapdis Forms: Smoking Cessation Education Referrals: [facility] [Provider Group] - Follow up as needed [facility] [Provider Group] - Follow up as needed [facility] [Provider Group] - Follow up as needed
[2018-07-10 18:15] VITALS: BP 117/81
[2018-07-10] MEDS ORDERED: ONDANSETRON 4 MG TAB.RAPDIS PO ONE (18:36)
== END 2018-07-10 18:37 | disposition home or self-care (01) ==
LOC: ER 14:43
DX: K86.0 Alcohol-induced chronic pancreatitis (principal); G62.9 Polyneuropathy, unspecified; F10.29 Alcohol dependence with unspecified alcohol-induced disorder; M51.36 Other intervertebral disc degeneration, lumbar region; R20.0 Anesthesia of skin; R11.2 Nausea with vomiting, unspecified; R53.1 Weakness; F17.210 Nicotine dependence, cigarettes, uncomplicated; I50.9 Heart failure, unspecified; Z98.84 Bariatric surgery status; Z90.49 Acquired absence of other specified parts of digestive tract; Z88.0 Allergy status to penicillin
CPT/HCPCS: 36415; 72110; 80053; 80307; 81001; 83690; 85025; 99284; 99406

== ENCOUNTER 2018-07-31 13:56 | Emergency (ER) | payer SELFPAY ==
[2018-07-31 14:31] VITALS: BP 107/68
[2018-07-31] MEDS ORDERED: METOCLOPRAMIDE HCL ORAL SOLN 10 MG/10 ML UDCUP PO ONE (15:17)
[2018-07-31] MEDS ORDERED: MAG HYDROX/AL HYDROX/SIMETH SUSP 30 ML UDCUP PO ONE (15:17)
[2018-07-31] MEDS ORDERED: LIDOCAINE 2% VISCOUS SOLN 20 ML UDCUP PO ONE (15:17)
--- NOTE | 2018-07-31 15:17 | ER Document Report ---
ED Medical Screen (RME) - General Chief Complaint: Abdominal Pain Stated Complaint: ABDOMINAL PAIN Time Seen by Provider: 07/31/18 15:10 Mode of Arrival: Wheelchair Information source: Patient Notes: 42-year-old female who with history of alcoholism, pancreatitis, chronic abdominal pain, chronic diarrhea presents with complaint of abdominal pain. I have greeted and performed a rapid initial assessment of this patient. A comprehensive ED assessment and evaluation of the patient, analysis of test results and completion of medical decision making process we will be contacted by additional ED providers. PHYSICAL EXAMINATION: Vital signs reviewed GENERAL: Well-appearing, well-nourished and in no acute distress. LUNGS: No respiratory distress Musculoskeletal: Normal range of motion NEUROLOGICAL: Normal speech, normal gait. PSYCH: Normal mood, normal affect. SKIN: Warm, Dry, normal turgor, no rashes or lesions noted. TRAVEL OUTSIDE OF THE [place] IN LAST 30 DAYS: No - HPI Onset: Other Onset/Duration: Gradual, Intermittent Quality of pain: Stabbing Associated Symptoms: Abdominal pain, Diarrhea. denies: Fever Exacerbated by: Food Relieved by: Denies Similar symptoms previously: Yes Recently seen / treated by doctor: Yes - Related Data Smoking: Cigarettes Frequency of alcohol use: Heavy Drug Abuse: None Allergies/Adverse Reactions: Penicillins Allergy (Verified 07/10/18 14:44) Past Medical History - Social History Chew tobacco use (# tins/day): No Frequency of alcohol use: Heavy Drug Abuse: None - Past Medical History Cardiac Medical History: Reports: Hx Congestive Heart Failure Pulmonary Medical History: Reports: Hx Asthma Renal/ Medical History: Denies: Hx Peritoneal Dialysis Musculoskeltal Medical History: Reports Hx Muscle Spasm Psychiatric Medical History: Reports: Hx Anxiety, Hx Depression Past Surgical History: Reports: Hx Abdominal Surgery - gastric bypass, Hx Cholecystectomy, Hx Gastric Bypass Surgery - Immunizations Immunizations up to date: Yes History of Influenza Vaccine for 03/2017 - 08/2017 Season: No Physical Exam - Vital signs Vitals: Temp Pulse Resp BP Pulse Ox 98.5 F 95 18 107/68 100 07/31/18 14:24 07/31/18 14:24 07/31/18 14:24 07/31/18 14:24 07/31/18 14:24 Course - Vital Signs Vital signs: Temp Pulse Resp BP Pulse Ox 98.5 F 95 18 107/68 100 07/31/18 14:24 07/31/18 14:24 07/31/18 14:24 07/31/18 14:24 07/31/18 14:24
[2018-07-31 16:07] LABS: ABSOLUTE LYMPHOCYTES (AUTO) 1.1 10^3/uL (0.5-4.7); ABSOLUTE MONOCYTES (AUTO) 0.3 10^3/uL (0.1-1.4); ABSOLUTE NEUT (AUTO) 2.5 10^3/uL (1.7-8.2); BASOPHILS % (AUTO) 0.5 % (0-2); EOSINOPHILS % (AUTO) 0.9 % (0-6); HEMATOCRIT 39.5 % (36.0-47.0); HEMOGLOBIN 13.5 g/dL (12.0-15.5); LYMPHOCYTES % (AUTO) 28.1 % (13-45); MEAN CORPUSCULAR HEMOGLOBIN 34.4 pg (27.0-33.4); MEAN CORPUSCULAR HGB CONC 34.2 g/dL (32.0-36.0); MEAN CORPUSCULAR VOLUME 100 fl (80-97); PLATELET COUNT 125 10^3/uL (150-450); RED BLOOD COUNT 3.94 10^6/uL (3.72-5.28); RED CELL DISTRIBUTION WIDTH 15.4 % (11.5-14.0); SEGMENTED NEUTROPHILS % (AUTO) 62.5 % (42-78); TOTAL CELLS COUNTED % (AUTO) 100 %; WHITE BLOOD COUNT 3.9 10^3/uL (4.0-10.5)
[2018-07-31 16:10] LABS: APPEARANCE,URINE CLEAR; BILIRUBIN,URINE NEGATIVE (NEGATIVE); COLOR,URINE YELLOW; GLUCOSE, URINE NEGATIVE (NEGATIVE); KETONES,URINE NEGATIVE (NEGATIVE); LEUKOCYTE ESTERASE,URINE TRACE (NEGATIVE); NITRITE,URINE NEGATIVE (NEGATIVE); PROTEIN,URINE NEGATIVE (NEGATIVE); URINE SPECIFIC GRAVITY 1.004; UROBILINOGEN,URINE NEGATIVE mg/dL (<2.0)
[2018-07-31 16:21] LABS: ALANINE AMINOTRANSFERASE 49 U/L (9-52); ALBUMIN 4.1 g/dL (3.5-5.0); ALKALINE PHOSPHATASE 264 U/L (38-126); ANION GAP 12 (5-19); ASPARTATE AMINO TRANSFERASE 258 U/L (14-36); BILIRUBIN,DIRECT 0.5 mg/dL (0.0-0.4); BILIRUBIN,TOTAL 0.7 mg/dL (0.2-1.3); BLOOD UREA NITROGEN 2 mg/dL (7-20); CALCIUM 9.1 mg/dL (8.4-10.2); CARBON DIOXIDE 27 mmol/L (22-30); CHLORIDE 105 mmol/L (98-107); GLUCOSE 155 mg/dL (75-110); LIPASE 1031.4 U/L (23-300); POTASSIUM 3.8 mmol/L (3.6-5.0); SODIUM 143.9 mmol/L (137-145)
[2018-07-31 16:35] LABS: ALCOHOL 319 mg/dL (NONE DETECTED)
[2018-07-31] MEDS ORDERED: RINGERS SOLUTION,LACTATED 1,000 ML IV ONE (20:33)
== END 2018-07-31 19:45 | disposition left against medical advice (07) ==
LOC: ER 13:56
DX: R10.9 Unspecified abdominal pain (principal); G89.29 Other chronic pain; R19.7 Diarrhea, unspecified; I50.9 Heart failure, unspecified; Z98.84 Bariatric surgery status; Z88.0 Allergy status to penicillin; Z90.49 Acquired absence of other specified parts of digestive tract
CPT/HCPCS: 99281; 36415; 80307; 83690; 85025; 80053; 81001; J3490

== ENCOUNTER 2018-10-09 04:44 | Inpatient (IN) | payer OTHER ==
[2018-10-09] MEDS ORDERED: NORMAL SALINE 1000 ML 1,000 ML IV ONE ×2 (04:58→08:08)
[2018-10-09] MEDS ORDERED: HYDROMORPHONE HCL INJ/PF 2 MG/ML AMPULE IV ONE ×2 (04:58→10:21)
[2018-10-09] MEDS ORDERED: ONDANSETRON HCL INJ/PF 4 MG/2 ML SDV IV ONE ×2 (04:58→10:22)
--- NOTE | 2018-10-09 05:01 | ER Document Report ---
Doctor's Note Notes: 10/09/18 04:59 I performed a quick triage evaluation the patient. Patient is a 43-year-old female drinks alcohol daily basis who presents with complaint of pain in the left upper portion of her abdomen. She has history of pancreatitis. Says it feels similar. States she is been vomiting recurrently now for several hours. No blood in her emesis. She has not noticed any blood in her stool. No fevers. No other complaints at this time. On exam she has significant pain to palpation left upper quadrant. The remainder of her abdomen is nontender except for some mild pain in the left lower quadrant. Vital signs are currently stable. She says that she sometimes does get withdrawal if she goes a long time without drinking. Last time she had alcohol was around 10 PM. She currently does not have any tremors or shaking. She is currently not tachycardic. Will order some pain and nausea medicine. I have ordered blood work to evaluate for pancreatitis. Dictation of this chart was performed using voice recognition software; therefore, there may be some unintended grammatical errors. 10/09/18 05:00
[2018-10-09 05:32] LABS: ABSOLUTE LYMPHOCYTES (AUTO) 0.4 10^3/uL (0.5-4.7); ABSOLUTE MONOCYTES (AUTO) 0.3 10^3/uL (0.1-1.4); ABSOLUTE NEUT (AUTO) 2.2 10^3/uL (1.7-8.2); BASOPHILS % (AUTO) 1.2 % (0-2); EOSINOPHILS % (AUTO) 0.2 % (0-6); HEMATOCRIT 32.4 % (36.0-47.0); LYMPHOCYTES % (AUTO) 14.5 % (13-45); MEAN CORPUSCULAR VOLUME 100 fl (80-97); MONOCYTES % (AUTO) 9.4 % (3-13); RED BLOOD COUNT 3.23 10^6/uL (3.72-5.28); RED CELL DISTRIBUTION WIDTH 15.1 % (11.5-14.0); SEGMENTED NEUTROPHILS % (AUTO) 74.7 % (42-78); TOTAL CELLS COUNTED % (AUTO) 100 %
[2018-10-09 05:55] LABS: PLATELET COUNT 75 10^3/uL (150-450)
--- NOTE | 2018-10-09 06:45 | ER Document Report ---
ED GI/ - General Chief Complaint: Abdominal Pain Stated Complaint: VOMITING Time Seen by Provider: 10/09/18 04:58 Notes: 43-year-old female to the emergency department chief complaint of abdominal pain. Patient states that she has had gastric bypass surgery 10 years ago. Have chronic pain and diarrhea. Pain in the left lower quadrant is getting worse. Patient admits to heavy drinker. History of CHF after massive weight loss. Patient states that she cannot get control of pain today. Positive nausea and vomiting. Has a history of pancreatitis as well TRAVEL OUTSIDE OF THE [place] IN LAST 30 DAYS: No - HPI Patient complains to provider of: Abdominal pain Timing/Duration: Gradual Quality of pain: Achy, Throbbing Severity at maximum: Moderate Severity in ED: Moderate Pain Level: 3 Location: Q - Related Data Allergies/Adverse Reactions: Penicillins Allergy (Verified 07/10/18 14:44) Past Medical History - General Information source: Patient - Social History Smoking Status: Current Every Day Smoker Frequency of alcohol use: Heavy Drug Abuse: None Lives with: Family Family History: Hypertension, Other - Breast cancer Patient has suicidal ideation: No Patient has homicidal ideation: No - Past Medical History Cardiac Medical History: Reports: Hx Congestive Heart Failure Pulmonary Medical History: Reports: Hx Asthma Renal/ Medical History: Denies: Hx Peritoneal Dialysis Musculoskeletal Medical History: Reports Hx Muscle Spasm Psychiatric Medical History: Reports: Hx Anxiety, Hx Depression Past Surgical History: Reports: Hx Abdominal Surgery - gastric bypass, Hx Cholecystectomy, Hx Gastric Bypass Surgery - Immunizations Immunizations up to date: Yes Review of Systems - Review of Systems Notes: Constitutional: denies: Chills, Diaphoresis, Fever, Malaise, Weakness EENT: denies: Eye discharge, Blurred vision, Tearing, Double vision, Nose congestion, Nose discharge, Throat swelling, Mouth pain Cardiovascular: denies: Palpitations, Heart racing, Orthopnea, Dyspnea, Chest pain Respiratory: denies: Cough, Hurts to breathe, Wheezing, Shortness of breath Gastrointestinal: Complaining of nausea, vomiting, diarrhea and abdominal pain. Genitourinary: denies: Burning, Dysuria, Discharge, Frequency, Flank pain, Hematuria Musculoskeletal: denies: Joint pain, Joint swelling, Muscle pain, Muscle stiffness, back pain Hematologic/Lymphatic: denies: Anemia, Easy bleeding, Easy bruising, Blood clots Neurological/Psychological: denies: Confusion, Dementia, Depression, Loss of consciousness Skin: No lesions, no masses, no skin breakdown, no abscesses Physical Exam - Vital signs Vitals: Temp Pulse Ox 98.3 F 100 10/09/18 04:51 10/09/18 04:51 Interpretation: Tachycardic - General General appearance: Appears well, Alert - HEENT Head: Normocephalic, Atraumatic Eyes: Normal Pupils: PERRL - Respiratory Respiratory status: No respiratory distress Chest status: Nontender Breath sounds: Normal Chest palpation: Normal - Cardiovascular Rhythm: Regular Heart sounds: Normal auscultation Murmur: No - Abdominal Inspection: Normal Distension: No distension Bowel sounds: Normal Tenderness: Tender - Negative guarding, negative rebound. Tenderness to palpation in the left lower quadrant Organomegaly: No organomegaly - Back Back: Normal, Nontender - Extremities General upper extremity: Normal inspection, Nontender, Normal color, Normal ROM, Normal temperature General lower extremity: Normal inspection, Nontender, Normal color, Normal ROM, Normal temperature, Normal weight bearing. No: Eliza's sign - Neurological Neuro grossly intact: Yes Cognition: Normal Orientation: AAOx4 [place] Coma Scale Eye Opening: Spontaneous Say Coma Scale Verbal: Oriented [place] Coma Scale Motor: Obeys Commands Say Coma Scale Total: 15 Speech: Normal Motor strength normal: LUE, RUE, LLE, RLE Sensory: Normal - Psychological Associated symptoms: Normal affect, Normal mood - Skin Skin Temperature: Warm Skin Moisture: Dry Skin Color: Normal Course - Re-evaluation Re-evalutation: 10/09/18 10:23 Laboratory 10/09/18 10/09/18 10/09/18 04:55 04:55 04:55 WBC 3.0 L RBC 3.23 L Hgb 11.0 L Hct 32.4 L MCV 100 H MCH 34.0 H MCHC 34.0 RDW 15.1 H Plt Count 75 L Seg Neutrophils % 74.7 Lymphocytes % 14.5 Monocytes % 9.4 Eosinophils % 0.2 Basophils % 1.2 Absolute Neutrophils 2.2 Absolute Lymphocytes 0.4 L Absolute Monocytes 0.3 Absolute Eosinophils 0.0 Absolute Basophils 0.0 Sodium Cancelled Potassium Cancelled Chloride Cancelled Carbon Dioxide Cancelled Anion Gap Cancelled BUN Cancelled Creatinine Cancelled Est GFR ( Amer) Cancelled Est GFR (Non-Af Amer) Cancelled Glucose Cancelled Calcium Cancelled Total Bilirubin Cancelled Direct Bilirubin Cancelled Neonat Total Bilirubin Cancelled Neonat Direct Bilirubin Cancelled Neonat Indirect Bili Cancelled AST Cancelled ALT Cancelled Alkaline Phosphatase Cancelled Total Protein Cancelled Albumin Cancelled Lipase Cancelled Serum HCG, Qual Cancelled Serum Alcohol 10/09/18 10/09/18 10/09/18 06:20 06:20 06:20 WBC RBC Hgb Hct MCV MCH MCHC RDW Plt Count Seg Neutrophils % Lymphocytes % Monocytes % Eosinophils % Basophils % Absolute Neutrophils Absolute Lymphocytes Absolute Monocytes Absolute Eosinophils Absolute Basophils Sodium 139.3 Potassium 3.3 L Chloride 105 Carbon Dioxide 23 Anion Gap 11 BUN 3 L Creatinine 0.32 L Est GFR ( Amer) > 60 Est GFR (Non-Af Amer) > 60 Glucose 120 H Calcium 7.3 L Total Bilirubin 1.3 Direct Bilirubin 0.9 H Neonat Total Bilirubin Not Reportable Neonat Direct Bilirubin Not Reportable Neonat Indirect Bili Not Reportable AST 160 H ALT 35 Alkaline Phosphatase 275 H Total Protein 6.2 L Albumin 2.7 L Lipase 3586.2 H Serum HCG, Qual NEGATIVE Serum Alcohol 242 10/09/18 10:24 CT: +sigmoid colitis and pancreatitis Consult hospitalist for admission at this time. Patient has significant pancreatitis as well as significant colitis with a thrombocytopenia and leukopenia. Started on antibiotics, IV fluids, pain medication and nausea medication at this time. - Vital Signs Vital signs: Temp Pulse Resp BP Pulse Ox 98.8 F 13 109/80 100 10/09/18 08:00 10/09/18 09:00 10/09/18 09:00 10/09/18 09:00 - Laboratory Result Diagrams: 10/09/18 04:55 10/09/18 06:20 Laboratory results interpreted by me: 10/09/18 10/09/18 04:55 06:20 WBC 3.0 L RBC 3.23 L Hgb 11.0 L Hct 32.4 L MCV 100 H MCH 34.0 H RDW 15.1 H Plt Count 75 L Absolute Lymphocytes 0.4 L Potassium 3.3 L BUN 3 L Creatinine 0.32 L Glucose 120 H Calcium 7.3 L Direct Bilirubin 0.9 H AST 160 H Alkaline Phosphatase 275 H Total Protein 6.2 L Albumin 2.7 L Lipase 3586.2 H Discharge - Discharge Clinical Impression: Colitis Pancreatitis, alcoholic, acute Qualifiers: Acute pancreatitis complication: unspecified Qualified Code(s): K85.20 - Alcohol induced acute pancreatitis without necrosis or infection Condition: Good Disposition: ADMITTED INPATIENT Admitting Provider: Kim (Hospitalist) Unit Admitted: Medical Floor
[2018-10-09 07:14] LABS: ALANINE AMINOTRANSFERASE 35 U/L (9-52); ALBUMIN 2.7 g/dL (3.5-5.0); ALKALINE PHOSPHATASE 275 U/L (38-126); ANION GAP 11 (5-19); ASPARTATE AMINO TRANSFERASE 160 U/L (14-36); BILIRUBIN,DIRECT 0.9 mg/dL (0.0-0.4); BILIRUBIN,TOTAL 1.3 mg/dL (0.2-1.3); BLOOD UREA NITROGEN 3 mg/dL (7-20); CALCIUM 7.3 mg/dL (8.4-10.2); CARBON DIOXIDE 23 mmol/L (22-30); CHLORIDE 105 mmol/L (98-107); GLUCOSE 120 mg/dL (75-110); POTASSIUM 3.3 mmol/L (3.6-5.0); SODIUM 139.3 mmol/L (137-145); TOTAL PROTEIN 6.2 g/dL (6.3-8.2)
[2018-10-09 07:23] LABS: LIPASE 3586.2 U/L (23-300)
[2018-10-09] MEDS ORDERED: DEXTROSE 5%-1/2 NORMAL SALINE 1,000 ML IV ONE (10:22)
[2018-10-09] MEDS ORDERED: CIPROFLOXACIN 400 MG/D5W RTU 400 MG/200 ML RTUPB IV ONE (10:22)
--- NOTE | 2018-10-09 10:33 | RADIOLOGY REPORT (SQ) ---
EXAM DESCRIPTION: CT ABD/PELVIS WITH IV ONLY COMPLETED DATE/TIME: 10/09/2018 10:07 am REASON FOR STUDY: LLQ ab pain COMPARISON: None. TECHNIQUE: CT scan of the abdomen and pelvis performed using helical scanning technique with dynamic intravenous contrast injection. No oral contrast. Images reviewed with lung, soft tissue, and bone windows. Reconstructed coronal and sagittal MPR images reviewed. Delayed images for evaluation of the urinary system also acquired. All images stored on PACS. All CT scanners at this facility use dose modulation, iterative reconstruction, and/or weight based d osing when appropriate to reduce radiation dose to as low as reasonably achievable (ALARA). [facility]: Dose Right [facility]: CareDose [facility]: Dose Right [facility]: Teradose 4D [facility]: LoopPay CONTRAST TYPE AND DOSE: contrast/concentration: Isovue 350.00 mg/ml; Total Contrast Delivered: 56.0 ml; Total Saline Delivered: 65.0 ml RENAL FUNCTION: Creatinine - 0.32 RADIATION DOSE: CT Rad equipment meets quality standard of care and radiation dose reduction techniq ues were employed. CTDIvol: NaN - NaN mGy. DLP: 0 mGy-cm.. LIMITATIONS: None. FINDINGS: LOWER CHEST: Very small bilateral pleural effusion and slight bibasilar atelectasis. No significant findings. No nodules or infiltrates. LIVER: Fatty liver. Normal size. No masses. No dilated ducts. The hepatic and portal veins are pa tent. SPLEEN: Normal size. No focal lesions. PANCREAS: The head of the pancreas and uncinate process are heterogenous and slightly hypoattenuated in appearance, may represent edematous-inflammatory changes. The remaining pancreas is slightly enl arged. No masses. No significant calcifications. GALLBLADDER: Prior cholecystectomy. ADRENAL GLANDS: No significant masses or asymmetry. RIGHT KIDNEY AND URETER: No solid masses. No significant calcifications. No hydronephrosis or hyd roureter. LEFT KIDNEY AND URETER: No solid masses. No significant calcifications. No hydronephrosis or hydr oureter. AORTA AND VESSELS: Slight atherosclerotic changes involving the abdominal aorta. No aneurysm. No di ssection. Renal arteries, SMA, celiac without stenosis. RETROPERITONEUM: No retroperitoneal adenopathy, hemorrhage or masses. BOWEL AND PERITONEAL CAVITY: Mild thickening of the wall of the colon, may be related to colitis of inflammatory or infectious etiology. Prior gastric bypass surgery. APPENDIX: Normal. PELVIS: The uterus lies to the left of the midline. Normal bladder. ABDOMINAL WALL: No masses. No hernias. BONES: No significant or acute findings. OTHER: Moderate amount of free fluid in the abdomen. Minimal free fluid in the pelvis. Bilateral b reast implants. IMPRESSION: 1. The head of the pancreas and uncinate process of the pancreas are heterogenous and s lightly hypoattenuated in appearance, may represent edematous--inflammatory changes. The remaining p ancreas is slightly enlarged. Considerations for these findings include acute pancreatitis. Correla tion with lab values and clinical history. 2. Moderate amount of free fluid in the abdomen. 3. Mild to moderate thickening of the wall of the colon, may be related to colitis on an inflammator y or infectious etiology. Correlation suggested. 4. Fatty liver. 5. Prior cholecystectomy and gastric bypass procedure. 6. Additional findings as above. COMMENT: 1. The results of this examination were discussed with emergency department provider on and 10:22 hours. TECHNICAL DOCUMENTATION: JOB ID: [id number] Quality ID # [id number]: Final reports with documentation of one or more dose reduction techniques (e.g., Au tomated exposure control, adjustment of the mA and/or kV according to patient size, use of iterative reconstruction technique) 2010 [employer]- All Rights Reserved Reading location - IP/workstation name: [email or web address]
[2018-10-09] MEDS: HEPARIN SOD (PORCINE) 5,000 UNIT/ML 1 ML SYRINGE SUBCUT SCH ×2 (13:40→21:02)
[2018-10-09] MEDS: RINGERS SOLUTION,LACTATED 1,000 ML IV PRN ×2 (13:43→18:16)
[2018-10-09] MEDS: MORPHINE SULFATE 10 MG/ML INJ IV PRN (15:29)
[2018-10-09] MEDS: ONDANSETRON HCL INJ/PF 4 MG/2 ML SDV IV PRN ×2 (15:33→21:02)
--- NOTE | 2018-10-09 16:26 | PDOC H&P ---
History of Present Illness Admission Date/PCP: 10/09/18 10:47 History of Present Illness: FEDE IYER is a 43 year old female who presents with history of several days of abdominal pain, she says going on for 2 months but worse the last few days. She says she also drinks about 12 pack of beer every day for a very long time. Her last drink was yesterday. She has not had any fevers. She has had some diarrhea but says that is pretty normal for her. She has had some nausea. The pain has been in her left lower quadrant and has not migrated. She describes it as a crampy ache. Nothing really makes it better. She said it gets worse whenever she coughs. She came to the emergency department today because she says it was not getting better. In the ER she had an elevated li pase and findings on CT scan consistent with pancreatitis and left lower quadrant colitis. Past Medical History Cardiac Medical History: Reports: Congestive Heart Failure Pulmonary Medical History: Reports: Asthma Psychiatric Medical History: Reports: Depression Hematology: Reports: Anemia Past Surgical History Past Surgical History: Reports: Cholecystectomy, Gastric Bypass Surgery Social History Lives with: Family Smoking Status: Current Every Day Smoker Frequency of Alcohol Use: Heavy Hx Recreational Drug Use: No Drugs: None Hx Prescription Drug Abuse: No Family History Family History: Hypertension, Other - Breast cancer Parental Family History Reviewed: Yes - Hypertension, breast cancer Children Family History Reviewed: NA Sibling(s) Family History Reviewed.: Unknown Medication/Allergy Home Medications: No Home Medications 10/09/18 Allergies/Adverse Reactions: Penicillins Allergy (Verified 07/10/18 14:44) Review of Systems All systems: reviewed and no additional remarkable complaints except as stated - All systems were reviewed and were negative except as noted above Physical Exam Vital Signs: Temp Pulse Resp BP Pulse Ox 98.5 F 95 17 122/74 93 10/09/18 14:18 10/09/18 14:18 10/09/18 14:18 10/09/18 14:18 10/09/18 14:18 Intake & Output 10/08/18 10/09/18 10/10/18 06:59 06:59 06:59 Intake Total 1000 1410 Balance 1000 1410 Weight 56.047 kg General appearance: PRESENT: cooperative, disheveled, mild distress Head exam: PRESENT: atraumatic, normocephalic Eye exam: PRESENT: EOMI, PERRLA. ABSENT: conjunctival injection, nystagmus, scleral icterus Ear exam: PRESENT: normal external ear exam Mouth exam: PRESENT: dry mucosa, neck supple Teeth exam: PRESENT: poor dentation Throat exam: ABSENT: post pharyngeal erythema Neck exam: PRESENT: full ROM. ABSENT: carotid bruit, JVD, lymphadenopathy, meningismus, tenderness, thyromegaly Respiratory exam: PRESENT: clear to auscultation yadiel, symmetrical, unlabored. ABSENT: accessory muscle use, prolonged expiratory phas, rales, rhonchi, tachy pnea, wheezes Cardiovascular exam: PRESENT: RRR, +S1, +S2. ABSENT: diastolic murmur, systolic murmur Pulses: PRESENT: normal carotid pulses Vascular exam: PRESENT: normal capillary refill GI/Abdominal exam: PRESENT: normal bowel sounds, soft, tenderness - Left lower quadrant. ABSENT: distended, guarding, rebound Extremities exam: ABSENT: clubbing, pedal edema Musculoskeletal exam: PRESENT: normal inspection. ABSENT: deformity Neurological exam: PRESENT: alert, awake, oriented to person, oriented to place, oriented to time, oriented to situation, CN II-XII grossly intact. ABSENT: motor sensory deficit Psychiatric exam: PRESENT: anxious Skin exam: PRESENT: dry, warm Results Laboratory Results: 10/09/18 04:55 10/09/18 06:20 10/09/18 10/09/18 10/09/18 04:55 04:55 04:55 WBC 3.0 L RBC 3.23 L Hgb 11.0 L Hct 32.4 L MCV 100 H MCH 34.0 H MCHC 34.0 RDW 15.1 H Plt Count 75 L Seg Neutrophils % 74.7 Lymphocytes % 14.5 Monocytes % 9.4 Eosinophils % 0.2 Basophils % 1.2 Absolute Neutrophils 2.2 Absolute Lymphocytes 0.4 L Absolute Monocytes 0.3 Absolute Eosinophils 0.0 Absolute Basophils 0.0 Sodium Cancelled Potassium Cancelled Chloride Cancelled Carbon Dioxide Cancelled Anion Gap Cancelled BUN Cancelled Creatinine Cancelled Est GFR ( Amer) Cancelled Est GFR (Non-Af Amer) Cancelled Glucose Cancelled Calcium Cancelled Total Bilirubin Cancelled AST Cancelled ALT Cancelled Alkaline Phosphatase Cancelled Total Protein Cancelled Albumin Cancelled Lipase Cancelled Serum HCG, Qual Cancelled 10/09/18 10/09/18 06:20 06:20 WBC RBC Hgb Hct MCV MCH MCHC RDW Plt Count Seg Neutrophils % Lymphocytes % Monocytes % Eosinophils % Basophils % Absolute Neutrophils Absolute Lymphocytes Absolute Monocytes Absolute Eosinophils Absolute Basophils Sodium 139.3 Potassium 3.3 L Chloride 105 Carbon Dioxide 23 Anion Gap 11 BUN 3 L Creatinine 0.32 L Est GFR ( Amer) > 60 Est GFR (Non-Af Amer) > 60 Glucose 120 H Calcium 7.3 L Total Bilirubin 1.3 AST 160 H ALT 35 Alkaline Phosphatase 275 H Total Protein 6.2 L Albumin 2.7 L Lipase 3586.2 H Serum HCG, Qual NEGATIVE Impressions: Abdomen/Pelvis CT 10/09/18 07:07 IMPRESSION: 1. The head of the pancreas and uncinate process of the pancreas are heterogenous and slightly hypoattenuated in appearance, may represent edematous--inflammatory changes. The remaining pancreas is slightly enlarged. Considerations for these findings include acute pancreatitis. Correlation with lab values and clinical history. 2. Moderate amount of free fluid in the abdomen. 3. Mild to moderate thickening of the wall of the colon, may be related to colitis on an inflammatory or infectious etiology. Correlation suggested. 4. Fatty liver. 5. Prior cholecystectomy and gastric bypass procedure. 6. Additional findings as above. Assessment and Plan - Diagnosis (1) Colitis Is this a current diagnosis for this admission?: Yes Plan: She was started on some IV Cipro. Because of her history of diarrhea, I am going to check a stool for C. difficile before giving her any further antibiotics. If she does not have any diarrhea for the rest of the day. We will empirically start her on Cipro and Flagyl. Flagyl was not given in the ER for fear of precipitating a disulfiram-like reaction, but since she has a history of a severe reaction to beta lactams, specifically the penicillin, will likely go ahead and start her Cipro and Flagyl by the end of the day if she does not have any more diarrhea. (2) Pancreatitis, alcoholic, acute Qualifiers: Acute pancreatitis complication: unspecified Qualified Code(s): K85.20 - Alcohol induced acute pancreatitis without necrosis or infection Is this a current diagnosis for this admission?: Yes Plan: N.p.o. IV fluids. Monitor urine output. Antiemetics. (3) Alcohol dependence Qualifiers: Substance use status: with intoxication Complication of substance-induced condition: uncomplicated Qualified Code(s): F10.220 - Alcohol dependence with intoxication, uncomplicated Is this a current diagnosis for this admission?: Yes Plan: We will monitor for signs of withdrawal. PRN Ativan is available. - Time Time Spent with patient: 35 or more minutes - Inpatient Certification Based on my medical assessment, after consideration of the patient's comorbidities, presenting symptoms, or acuity I expect that the services needed warrant INPATIENT care.: Yes I certify that my determination is in accordance with my understanding of Medicare's requirements for reasonable and necessary INPATIENT services [42 CFR 412.3e].: Yes Medical Necessity: Need Close Monitoring Due to Risk of Patient Decompensation, Need For IV Fluids, Risk of Complication if Not Cared For in Hospital
[2018-10-09] MEDS: LORAZEPAM INJ 2 MG/1 ML VIAL IV PRN (18:14)
[2018-10-09] MEDS: CIPROFLOXACIN 400 MG/D5W RTU 400 MG/200 ML RTUPB IV SCH (21:02)
[2018-10-09] MEDS: KETOROLAC TROMETHAMINE INJ/PF 30 MG/1 ML SDV IV PRN (21:06)
[2018-10-09] MEDS: METRONIDAZOLE 500 MG/NS RTU 500 MG/100 ML RTUPB IV SCH (23:13)
[2018-10-10] MEDS: RINGERS SOLUTION,LACTATED 1,000 ML IV PRN ×2 (02:13→08:42)
[2018-10-10] MEDS: ONDANSETRON HCL INJ/PF 4 MG/2 ML SDV IV PRN (02:21)
[2018-10-10] MEDS: MORPHINE SULFATE 10 MG/ML INJ IV PRN (02:21)
[2018-10-10] MEDS: METRONIDAZOLE 500 MG/NS RTU 500 MG/100 ML RTUPB IV SCH ×3 (06:30→17:13)
[2018-10-10] MEDS: HEPARIN SOD (PORCINE) 5,000 UNIT/ML 1 ML SYRINGE SUBCUT SCH ×3 (06:33→22:17)
[2018-10-10 07:02] LABS: HEMATOCRIT 27.3 % (36.0-47.0); HEMOGLOBIN 9.3 g/dL (12.0-15.5); MEAN CORPUSCULAR HEMOGLOBIN 34.1 pg (27.0-33.4); MEAN CORPUSCULAR HGB CONC 33.9 g/dL (32.0-36.0); MEAN CORPUSCULAR VOLUME 100 fl (80-97); RED BLOOD COUNT 2.72 10^6/uL (3.72-5.28); RED CELL DISTRIBUTION WIDTH 14.6 % (11.5-14.0)
[2018-10-10 07:21] LABS: ALANINE AMINOTRANSFERASE 44 U/L (9-52); ALBUMIN 2.3 g/dL (3.5-5.0); ALKALINE PHOSPHATASE 232 U/L (38-126); ASPARTATE AMINO TRANSFERASE 191 U/L (14-36); BILIRUBIN,DIRECT 1.7 mg/dL (0.0-0.4); BILIRUBIN,TOTAL 2.3 mg/dL (0.2-1.3); BLOOD UREA NITROGEN 3 mg/dL (7-20); CALCIUM 7.6 mg/dL (8.4-10.2); CARBON DIOXIDE 28 mmol/L (22-30); CHLORIDE 103 mmol/L (98-107); LIPASE 1301.6 U/L (23-300); SODIUM 135.3 mmol/L (137-145); TOTAL PROTEIN 5.4 g/dL (6.3-8.2)
[2018-10-10 07:35] LABS: GLUCOSE 67 mg/dL (75-110)
[2018-10-10 07:36] LABS: ANION GAP 4 (5-19); POTASSIUM 2.9 mmol/L (3.6-5.0)
[2018-10-10] MEDS ORDERED: DEXTROSE 50%-WATER 25 GM/50 ML DISP.SYRIN IV ONE (07:45)
[2018-10-10] MEDS ORDERED: DEXTROSE 40% GEL 15 GM TUBE PO PRN (08:30)
[2018-10-10] MEDS ORDERED: DEXTROSE 40% GEL 15 GM TUBE X 2 PO PRN (08:30)
[2018-10-10] MEDS ORDERED: DEXTROSE 50%-WATER SYRINGE 25 GM/50 ML DOSE IV PRN (08:30)
[2018-10-10] MEDS ORDERED: GLUCAGON,HUMAN RECOMB 1 MG INJ IM PRN (08:30)
[2018-10-10] MEDS: POTASSIUM CHLORIDE 20 MEQ/50 ML RTU IV SCH ×2 (08:37→12:52)
[2018-10-10 09:27] LABS: PLATELET COUNT 41 10^3/uL (150-450)
[2018-10-10 09:28] LABS: WHITE BLOOD COUNT 1.9 10^3/uL (4.0-10.5)
[2018-10-10] MEDS: CIPROFLOXACIN 400 MG/D5W RTU 400 MG/200 ML RTUPB IV SCH ×2 (10:22→22:27)
[2018-10-10] MEDS: LORAZEPAM INJ 2 MG/1 ML VIAL IV PRN ×2 (11:45→18:23)
[2018-10-10 20:36] LABS: ANION GAP 7 (5-19); BLOOD UREA NITROGEN 2 mg/dL (7-20); CARBON DIOXIDE 26 mmol/L (22-30); CHLORIDE 101 mmol/L (98-107); POTASSIUM 3.5 mmol/L (3.6-5.0); SODIUM 134.3 mmol/L (137-145)
[2018-10-10 20:40] LABS: GLUCOSE 63 mg/dL (75-110)
[2018-10-10] MEDS: DEXTROSE 50%-WATER SYRINGE 12.5 GM/25 ML DOSE IV PRN (20:46)
[2018-10-10] MEDS: DEXTROSE 5%-NORMAL SALINE 1,000 ML IV PRN (22:28)
[2018-10-11] MEDS: METRONIDAZOLE 500 MG/NS RTU 500 MG/100 ML RTUPB IV SCH ×5 (00:33→23:29)
[2018-10-11] MEDS: DEXTROSE 50%-WATER SYRINGE 12.5 GM/25 ML DOSE IV PRN (00:55)
[2018-10-11] MEDS: LORAZEPAM INJ 2 MG/1 ML VIAL IV PRN ×2 (01:31→12:07)
[2018-10-11] MEDS: DIAZEPAM INJ 10 MG/2 ML DISP.SYRIN IV PRN ×3 (02:49→21:23)
[2018-10-11] MEDS: HEPARIN SOD (PORCINE) 5,000 UNIT/ML 1 ML SYRINGE SUBCUT SCH ×3 (05:22→21:08)
[2018-10-11] MEDS: DIAZEPAM 5 MG TABLET PO SCH ×6 (05:27→21:19)
[2018-10-11 06:56] LABS: HEMATOCRIT 27.7 % (36.0-47.0); HEMOGLOBIN 9.5 g/dL (12.0-15.5); MEAN CORPUSCULAR HEMOGLOBIN 34.1 pg (27.0-33.4); MEAN CORPUSCULAR HGB CONC 34.3 g/dL (32.0-36.0); MEAN CORPUSCULAR VOLUME 100 fl (80-97); RED BLOOD COUNT 2.78 10^6/uL (3.72-5.28); RED CELL DISTRIBUTION WIDTH 14.5 % (11.5-14.0); WHITE BLOOD COUNT 1.9 10^3/uL (4.0-10.5)
[2018-10-11 07:31] LABS: ALANINE AMINOTRANSFERASE 47 U/L (9-52); ALBUMIN 2.4 g/dL (3.5-5.0); ALKALINE PHOSPHATASE 246 U/L (38-126); ANION GAP 8 (5-19); ASPARTATE AMINO TRANSFERASE 212 U/L (14-36); BILIRUBIN,DIRECT 1.8 mg/dL (0.0-0.4); BILIRUBIN,TOTAL 2.4 mg/dL (0.2-1.3); CALCIUM 8.1 mg/dL (8.4-10.2); CARBON DIOXIDE 23 mmol/L (22-30); CHLORIDE 103 mmol/L (98-107); POTASSIUM 3.5 mmol/L (3.6-5.0); SODIUM 133.7 mmol/L (137-145); TOTAL PROTEIN 5.6 g/dL (6.3-8.2)
[2018-10-11 07:47] LABS: PLATELET COUNT 44 10^3/uL (150-450)
[2018-10-11 07:49] LABS: BLOOD UREA NITROGEN < 2 mg/dL (7-20)
[2018-10-11 07:50] LABS: LIPASE 2059.2 U/L (23-300)
[2018-10-11 07:52] LABS: GLUCOSE 65 mg/dL (75-110)
[2018-10-11] MEDS: DEXTROSE 5%-NORMAL SALINE 1,000 ML IV PRN ×2 (09:17→20:25)
[2018-10-11] MEDS: CIPROFLOXACIN 400 MG/D5W RTU 400 MG/200 ML RTUPB IV SCH ×2 (09:17→21:12)
[2018-10-11 10:18] LABS: PATH REVIEW PATHOLOGIST REVIEWED
[2018-10-12] MEDS: DIAZEPAM INJ 10 MG/2 ML DISP.SYRIN IV PRN ×2 (01:52→05:35)
[2018-10-12] MEDS: DIAZEPAM 5 MG TABLET PO SCH ×6 (01:54→22:03)
[2018-10-12] MEDS: HEPARIN SOD (PORCINE) 5,000 UNIT/ML 1 ML SYRINGE SUBCUT SCH ×3 (05:09→22:02)
[2018-10-12] MEDS: DEXTROSE 5%-NORMAL SALINE 1,000 ML IV PRN (05:34)
[2018-10-12] MEDS: METRONIDAZOLE 500 MG/NS RTU 500 MG/100 ML RTUPB IV SCH ×3 (05:34→17:02)
[2018-10-12 09:41] LABS: HEMOGLOBIN 8.8 g/dL (12.0-15.5); MEAN CORPUSCULAR HEMOGLOBIN 34.3 pg (27.0-33.4); MEAN CORPUSCULAR HGB CONC 33.9 g/dL (32.0-36.0); MEAN CORPUSCULAR VOLUME 101 fl (80-97); RED BLOOD COUNT 2.57 10^6/uL (3.72-5.28); RED CELL DISTRIBUTION WIDTH 15.2 % (11.5-14.0)
[2018-10-12] MEDS: CIPROFLOXACIN 400 MG/D5W RTU 400 MG/200 ML RTUPB IV SCH ×2 (09:54→22:06)
[2018-10-12 10:10] LABS: ALANINE AMINOTRANSFERASE 39 U/L (9-52); ALBUMIN 2.1 g/dL (3.5-5.0); ALKALINE PHOSPHATASE 199 U/L (38-126); ANION GAP 6 (5-19); ASPARTATE AMINO TRANSFERASE 122 U/L (14-36); BILIRUBIN,DIRECT 2.2 mg/dL (0.0-0.4); BILIRUBIN,TOTAL 2.8 mg/dL (0.2-1.3); CALCIUM 7.7 mg/dL (8.4-10.2); CARBON DIOXIDE 25 mmol/L (22-30); CHLORIDE 103 mmol/L (98-107); GLUCOSE 94 mg/dL (75-110); LIPASE 1908.8 U/L (23-300); SODIUM 134.4 mmol/L (137-145); TOTAL PROTEIN 4.8 g/dL (6.3-8.2)
[2018-10-12 10:12] LABS: BLOOD UREA NITROGEN < 2 mg/dL (7-20)
[2018-10-12 10:17] LABS: POTASSIUM 2.3 mmol/L (3.6-5.0)
[2018-10-12 10:19] LABS: PLATELET COUNT 52 10^3/uL (150-450)
[2018-10-12] MEDS ORDERED: FUROSEMIDE INJ/PF 20 MG/2 ML SDV IV ONE (13:00)
[2018-10-12] MEDS: POTASSI CL 20 MEQ/50 ML RIDER 20 MEQ/50 ML RTUPB IV SCH ×3 (13:32→19:53)
[2018-10-12] MEDS: KETOROLAC TROMETHAMINE INJ/PF 30 MG/1 ML SDV IV PRN (16:01)
--- NOTE | 2018-10-12 16:53 | RADIOLOGY REPORT (SQ) ---
EXAM DESCRIPTION: CT ABD/PELVIS WITH IV ONLY COMPLETED DATE/TIME: 10/12/2018 4:31 pm REASON FOR STUDY: worsening abdo pain COMPARISON: 10/09/2018 TECHNIQUE: CT scan of the abdomen and pelvis performed using helical scanning technique with dynamic intravenous contrast injection. No oral contrast. Images reviewed with lung, soft tissue, and bone windows. Reconstructed coronal and sagittal MPR images reviewed. Delayed images for evaluation of the urinary system also acquired. All images stored on PACS. All CT scanners at this facility use dose modulation, iterative reconstruction, and/or weight based d osing when appropriate to reduce radiation dose to as low as reasonably achievable (ALARA). [facility]: Dose Right [facility]: CareDose [facility]: Dose Right [facility]: Teradose 4D [facility]: [place] CONTRAST TYPE AND DOSE: contrast/concentration: Isovue 350.00 mg/ml; Total Contrast Delivered: 70.0 ml; Total Saline Delivered: 65.0 ml RENAL FUNCTION: BUN less than 2, creatinine 0.32 RADIATION DOSE: CT Rad equipment meets quality standard of care and radiation dose reduction techniq ues were employed. CTDIvol: 4.1 - 4.9 mGy. DLP: 489 mGy-cm.. LIMITATIONS: None. FINDINGS: LOWER CHEST: There are small bilateral pleural effusions and basilar atelectasis new from prior study. LIVER: There is fatty infiltration of the liver. There is perihepatic and perisplenic fluid. SPLEEN: No focal splenic lesions PANCREAS: Persistent peripancreatic inflammatory change. No focal masses. The peripancreatic edema is improved from prior study. GALLBLADDER: Surgically absent. ADRENAL GLANDS: No significant masses or asymmetry. RIGHT KIDNEY AND URETER: No solid masses. No significant calcifications. No hydronephrosis or hyd roureter. LEFT KIDNEY AND URETER: No solid masses. No significant calcifications. No hydronephrosis or hydr oureter. AORTA AND VESSELS: No aneurysm. No dissection. Renal arteries, SMA, celiac without stenosis. RETROPERITONEUM: No retroperitoneal adenopathy, hemorrhage or masses. BOWEL AND PERITONEAL CAVITY: There is ascites. No evidence of bowel obstruction. The colon is large ly decompressed. No obvious bowel wall thickening on today's study. APPENDIX: Not visualized. PELVIS: There is free fluid the pelvis. The bladder is distended. ABDOMINAL WALL: No masses. No hernias. BONES: No significant or acute findings. OTHER: No other significant finding. IMPRESSION: 1. Persistent peripancreatic inflammatory changes all this is improved from prior study. 2. Increasing diffuse ascites although the amount remains small to moderate. 3. Small bilateral pleural effusions with associated atelectasis. This has increased from prior raymond dy. 4. No pancreatic pseudocyst. No evidence of focal abscess or hemorrhagic transformation of the panc reatitis. TECHNICAL DOCUMENTATION: JOB ID: [id number] Quality ID # [id number]: Final reports with documentation of one or more dose reduction techniques (e.g., Au tomated exposure control, adjustment of the mA and/or kV according to patient size, use of iterative reconstruction technique) 2010 [employer]- All Rights Reserved Reading location - IP/workstation name: [email or web address]
[2018-10-12] MEDS: MORPHINE SULFATE 10 MG/ML INJ IV PRN ×2 (18:36→22:41)
[2018-10-12 18:52] LABS: ANION GAP 7 (5-19); CALCIUM 7.7 mg/dL (8.4-10.2); CARBON DIOXIDE 25 mmol/L (22-30); CHLORIDE 102 mmol/L (98-107); GLUCOSE 93 mg/dL (75-110); SODIUM 134.1 mmol/L (137-145)
[2018-10-12 19:09] LABS: BLOOD UREA NITROGEN < 2 mg/dL (7-20)
[2018-10-12 19:10] LABS: POTASSIUM 2.3 mmol/L (3.6-5.0)
[2018-10-13] MEDS: METRONIDAZOLE 500 MG/NS RTU 500 MG/100 ML RTUPB IV SCH ×5 (00:08→23:21)
[2018-10-13] MEDS: KETOROLAC TROMETHAMINE INJ/PF 30 MG/1 ML SDV IV PRN (02:04)
[2018-10-13] MEDS: POTASSIUM CHLORIDE 20 MEQ/50 ML RTU IV SCH ×2 (02:05→05:10)
[2018-10-13] MEDS: DIAZEPAM 5 MG TABLET PO SCH ×6 (02:12→21:06)
[2018-10-13] MEDS: HEPARIN SOD (PORCINE) 5,000 UNIT/ML 1 ML SYRINGE SUBCUT SCH ×3 (05:14→21:06)
--- NOTE | 2018-10-13 06:08 | PDOC PROGRESS REPORT ---
Subjective Progress Note for:: 10/10/18 Subjective:: Complains of feeling very lightheaded with change in position. Reports nausea but no vomiting. Diarrhea seems to have stopped. Complains of neuropathy with decreased sensation in her legs. She feels if she stood up she would fall down. Reason For Visit: PANCREATITIS, COLITIS, ALCOHOLIC ABUSE Physical Exam Vital Signs: Temp Pulse Resp BP Pulse Ox 98.6 F 91 16 110/71 96 10/09/18 23:13 10/10/18 07:00 10/09/18 23:13 10/09/18 23:13 10/09/18 23:13 Intake & Output 10/09/18 10/10/18 10/11/18 06:59 06:59 06:59 Intake Total 1000 3620 1350 Balance 1000 3620 1350 Weight 55.4 kg General appearance: PRESENT: cooperative, mild distress - Reports extreme weakness. Head exam: PRESENT: atraumatic, normocephalic Mouth exam: PRESENT: dry mucosa, tongue midline Respiratory exam: PRESENT: clear to auscultation yadiel, symmetrical, unlabored. ABSENT: rales, rhonchi, tachypnea, wheezes Cardiovascular exam: PRESENT: RRR, +S1, +S2, systolic murmur - 2/6 GI/Abdominal exam: PRESENT: distended - Slightly, hypoactive bowel sounds, soft, tenderness - Especially right side of the abdomen. Extremities exam: ABSENT: calf tenderness, pedal edema Musculoskeletal exam: PRESENT: other - 4/5 plantar and dorsiflexion. Able to hold her leg off the bed. Neurological exam: PRESENT: alert, awake, oriented to person, oriented to place, oriented to situation. ABSENT: reflexes normal - Hyperreflexive patella reflexes bilaterally Psychiatric exam: PRESENT: flat affect. ABSENT: agitated, anxious Focused psych exam: ABSENT: delusional, restlessness Results Laboratory Results: 10/10/18 06:44 10/10/18 06:44 10/10/18 10/10/18 06:44 06:44 WBC 1.9 L D RBC 2.72 L Hgb 9.3 L Hct 27.3 L MCV 100 H MCH 34.1 H MCHC 33.9 RDW 14.6 H Plt Count 41 L Sodium 135.3 L Potassium 2.9 L* Chloride 103 Carbon Dioxide 28 Anion Gap 4 L BUN 3 L Creatinine 0.33 L Est GFR ( Amer) > 60 Est GFR (Non-Af Amer) > 60 Glucose 67 L Calcium 7.6 L Total Bilirubin 2.3 H AST 191 H ALT 44 Alkaline Phosphatase 232 H Total Protein 5.4 L Albumin 2.3 L Lipase 1301.6 H Impressions: Abdomen/Pelvis CT 10/09/18 07:07 IMPRESSION: 1. The head of the pancreas and uncinate process of the pancreas are heterogenous and slightly hypoattenuated in appearance, may represent edematous--inflammatory changes. The remaining pancreas is slightly enlarged. Considerations for these findings include acute pancreatitis. Correlation with lab values and clinical history. 2. Moderate amount of free fluid in the abdomen. 3. Mild to moderate thickening of the wall of the colon, may be related to colitis on an inflammatory or infectious etiology. Correlation suggested. 4. Fatty liver. 5. Prior cholecystectomy and gastric bypass procedure. 6. Additional findings as above. Assessment and Plan - Diagnosis (1) Colitis Is this a current diagnosis for this admission?: Yes Plan: We will continue on antibiotics. White blood cell count has gone down however it is low normal. This could be a reaction to her chronic poor state of health with bone marrow depletion. We will continue antibiotics at this time. Still no clear etiology for her colitis. (2) Pancreatitis, alcoholic, acute Qualifiers: Acute pancreatitis complication: unspecified Qualified Code(s): K85.20 - Alcohol induced acute pancreatitis without necrosis or infection Is this a current diagnosis for this admission?: Yes Plan: Lipase has improved. The patient will be allowed ice chips. Still with abdominal pain. (3) Hypokalemia Is this a current diagnosis for this admission?: Yes Plan: Potassium was low. Intravenous potassium administered. Continue to monitor potassium levels. - Time Time Spent with patient: Less than 15 minutes Medications reviewed and adjusted accordingly: Yes
--- NOTE | 2018-10-13 06:24 | PDOC PROGRESS REPORT ---
Subjective Progress Note for:: 10/11/18 Subjective:: Multiple family members are present. Her mother and her daughter are at the bedside. Patient is somewhat lucid but is picking at her skin. Reason For Visit: PANCREATITIS, COLITIS, ALCOHOLIC ABUSE Physical Exam Vital Signs: Temp Pulse Resp BP Pulse Ox 97.7 F 80 18 115/73 96 10/12/18 07:55 10/12/18 07:55 10/12/18 07:55 10/12/18 07:55 10/12/18 07:55 Intake & Output 10/11/18 10/12/18 10/13/18 06:59 06:59 06:59 Intake Total 4180 2800 1200 Balance 4180 2800 1200 Weight 62.2 kg 60.8 kg General appearance: PRESENT: no acute distress, cooperative, well-developed Head exam: PRESENT: atraumatic, normocephalic Eye exam: PRESENT: conjunctiva pale Respiratory exam: PRESENT: clear to auscultation yadiel, symmetrical, unlabored. ABSENT: rales, rhonchi, tachypnea, wheezes Cardiovascular exam: PRESENT: RRR, +S1, +S2 GI/Abdominal exam: PRESENT: distended, hypoactive bowel sounds, soft, tenderness - Again diffusely tender.. ABSENT: guarding Rectal exam: PRESENT: deferred Extremities exam: ABSENT: calf tenderness, pedal edema Musculoskeletal exam: PRESENT: other - Decreased muscle mass. ABSENT: ambulatory Neurological exam: PRESENT: alert, awake, oriented to person, oriented to place, oriented to situation Psychiatric exam: PRESENT: flat affect. ABSENT: agitated, anxious Focused psych exam: PRESENT: restlessness, other - Appears to be focused today. Staff reports some delirium at night. She is picking at her IV. Results Laboratory Results: 10/12/18 08:47 10/12/18 08:47 10/12/18 10/12/18 08:47 08:47 WBC 2.0 L RBC 2.57 L Hgb 8.8 L Hct 26.0 L MCV 101 H MCH 34.3 H MCHC 33.9 RDW 15.2 H Plt Count 52 L Sodium 134.4 L Potassium 2.3 L* Chloride 103 Carbon Dioxide 25 Anion Gap 6 BUN < 2 L Creatinine 0.32 L Est GFR ( Amer) > 60 Est GFR (Non-Af Amer) > 60 Glucose 94 Calcium 7.7 L Total Bilirubin 2.8 H AST 122 H ALT 39 Alkaline Phosphatase 199 H Total Protein 4.8 L Albumin 2.1 L Lipase 1908.8 H Impressions: Abdomen/Pelvis CT 10/09/18 07:07 IMPRESSION: 1. The head of the pancreas and uncinate process of the pancreas are heterogenous and slightly hypoattenuated in appearance, may represent edematous--inflammatory changes. The remaining pancreas is slightly enlarged. Considerations for these findings include acute pancreatitis. Correlation with lab values and clinical history. 2. Moderate amount of free fluid in the abdomen. 3. Mild to moderate thickening of the wall of the colon, may be related to colitis on an inflammatory or infectious etiology. Correlation suggested. 4. Fatty liver. 5. Prior cholecystectomy and gastric bypass procedure. 6. Additional findings as above. Assessment and Plan - Diagnosis (1) Colitis Is this a current diagnosis for this admission?: Yes Plan: We will continue antibiotic therapy. White blood cell count is still low as are her platelets. See discussion below. Still with abdominal discomfort. Bowel movements have slowed considerably. (2) Pancreatitis, alcoholic, acute Qualifiers: Acute pancreatitis complication: unspecified Qualified Code(s): K85.20 - Alcohol induced acute pancreatitis without necrosis or infection Is this a current diagnosis for this admission?: Yes Plan: Unfortunately her lipase is higher today. She is also been having hypoglycemia. About 25 minutes was specifically dedicated to bedside discussion with the patient, mother and the patient's daughter. This focused on her very poor prog nosis if she continues to drink. I explained that she would probably not reach the age of 49. Family reports that the patient has no intention of stopping alcohol use. I reemphasized the significant probability of her early demise because of this. See further discussion below. (3) Hypokalemia Is this a current diagnosis for this admission?: Yes Plan: Once again the patient's serum potassium is quite low. IV potassium will again be administered. Continue to follow serum potassium level. (4) Neutropenia associated with infection Is this a current diagnosis for this admission?: Yes Plan: The patient's white count was slightly low on admission but has dropped. It is only 1.9. This is likely due to her overall state as well as probable infectious colitis. Her intake has most likely been poor. This was addressed with the family as well. I explained that if her white blood cell count did not begin to respond I would have hematology see the patient. (5) Thrombocytopenia Is this a current diagnosis for this admission?: Yes Plan: The patient's platelets are paralleling her white blood cell count. This could be due to her acute on chronic illness. We will continue to monitor. (6) Alcoholic peripheral neuropathy Is this a current diagnosis for this admission?: Yes Plan: The patient's neuropathy is most likely due to chronic alcohol use. I explained to the patient that this certainly will continue to worsen if she does not stop drinking. Hopefully will resolve with abstinence and healthier diet. Physical therapy did see the patient and she is quite compromised and unable to safely ambulate at this time. (7) Alcohol myopathy Is this a current diagnosis for this admission?: Yes Plan: I did explain to the patient and family that her decreased muscle mass and weakness are due to her alcohol consumption and poor diet. Explained to the family and the patient that this certainly will not improve and likely worsen with continued alcohol use. It should improve with abstinence from alcohol. (8) Alcoholic encephalopathy Is this a current diagnosis for this admission?: Yes Plan: The patient's intermittent confusion and altered mental state are related to her chronic alcohol use. There is a long discussion at the bedside as noted above. Is centered around the patient's grave prognosis if she returns to alcohol use. The patient's hypoglycemia is likely related to poor pancreatic function. Her decompensated state is directly related to alcohol. The patient's daughter discussed the possibility of obtaining guardianship. I will asked psychiatry to see the patient regarding same. - Time Time Spent with patient: 35 or more minutes Medications reviewed and adjusted accordingly: Yes
[2018-10-13 06:34] LABS: HEMATOCRIT 24.4 % (36.0-47.0); HEMOGLOBIN 8.2 g/dL (12.0-15.5); MEAN CORPUSCULAR HEMOGLOBIN 34.2 pg (27.0-33.4); MEAN CORPUSCULAR HGB CONC 33.6 g/dL (32.0-36.0); MEAN CORPUSCULAR VOLUME 102 fl (80-97); RED BLOOD COUNT 2.39 10^6/uL (3.72-5.28); RED CELL DISTRIBUTION WIDTH 15.5 % (11.5-14.0)
--- NOTE | 2018-10-13 06:36 | PDOC PROGRESS REPORT ---
Subjective Progress Note for:: 10/12/18 Subjective:: Complaining of increased pain especially on the right today. She is more lethargic. Reason For Visit: PANCREATITIS, COLITIS, ALCOHOLIC ABUSE Physical Exam Vital Signs: Temp Pulse Resp BP Pulse Ox 97.7 F 80 18 115/73 96 10/12/18 07:55 10/12/18 07:55 10/12/18 07:55 10/12/18 07:55 10/12/18 07:55 Intake & Output 10/11/18 10/12/18 10/13/18 06:59 06:59 06:59 Intake Total 4180 2800 1200 Balance 4180 2800 1200 Weight 62.2 kg 60.8 kg General appearance: PRESENT: mild distress, well-developed Head exam: PRESENT: normocephalic Eye exam: PRESENT: conjunctiva pale Respiratory exam: PRESENT: rales - Fine rales at bases, symmetrical, unlabored. ABSENT: rhonchi, tachypnea, wheezes Cardiovascular exam: PRESENT: RRR, +S1, +S2, tachycardia - Slightly tachycardic GI/Abdominal exam: PRESENT: distended - Slightly distended, soft, tenderness - Diffusely. Especially right upper quadrant.. ABSENT: guarding Rectal exam: PRESENT: deferred Extremities exam: ABSENT: calf tenderness, pedal edema Musculoskeletal exam: ABSENT: ambulatory Neurological exam: PRESENT: awake, oriented to person, oriented to place. ABSENT: alert - Somewhat lethargic today. Psychiatric exam: PRESENT: flat affect. ABSENT: agitated, anxious Results Laboratory Results: 10/12/18 08:47 10/12/18 08:47 10/12/18 10/12/18 08:47 08:47 WBC 2.0 L RBC 2.57 L Hgb 8.8 L Hct 26.0 L MCV 101 H MCH 34.3 H MCHC 33.9 RDW 15.2 H Plt Count 52 L Sodium 134.4 L Potassium 2.3 L* Chloride 103 Carbon Dioxide 25 Anion Gap 6 BUN < 2 L Creatinine 0.32 L Est GFR ( Amer) > 60 Est GFR (Non-Af Amer) > 60 Glucose 94 Calcium 7.7 L Total Bilirubin 2.8 H AST 122 H ALT 39 Alkaline Phosphatase 199 H Total Protein 4.8 L Albumin 2.1 L Lipase 1908.8 H Impressions: Abdomen/Pelvis CT 10/09/18 07:07 IMPRESSION: 1. The head of the pancreas and uncinate process of the pancreas are heterogenous and slightly hypoattenuated in appearance, may represent edematous--inflammatory changes. The remaining pancreas is slightly enlarged. Considerations for these findings include acute pancreatitis. Correlation with lab values and clinical history. 2. Moderate amount of free fluid in the abdomen. 3. Mild to moderate thickening of the wall of the colon, may be related to colitis on an inflammatory or infectious etiology. Correlation suggested. 4. Fatty liver. 5. Prior cholecystectomy and gastric bypass procedure. 6. Additional findings as above. Assessment and Plan - Diagnosis (1) Colitis Is this a current diagnosis for this admission?: Yes Plan: Abdominal pain still present. It is hard to distinguish whether it is the colitis or pancreatitis. We will continue her current antibiotic therapy. (2) Pancreatitis, alcoholic, acute Qualifiers: Acute pancreatitis complication: unspecified Qualified Code(s): K85.20 - Alcohol induced acute pancreatitis without necrosis or infection Is this a current diagnosis for this admission?: Yes Plan: Her lipase bumped up to 2000 yesterday but is 1900 today. Hopefully she is trending down. We will continue n.p.o. status and IV fluids at this time. (3) Hypokalemia Is this a current diagnosis for this admission?: Yes Plan: Despite intravenous potassium her serum potassium is still quite low today. I have ordered 60 mEq of potassium and will recheck her levels tomorrow. (4) Alcohol myopathy Is this a current diagnosis for this admission?: Yes Plan: Still quite weak. Continue physical therapy. Based on her status at that time therapy may be decline a session on any particular day due to patient safety. (5) Alcoholic encephalopathy Is this a current diagnosis for this admission?: Yes Plan: Psych will see the patient. If guardianship is appropriate the daughter will pursue this based on my discussion with her yesterday. (6) Alcoholic peripheral neuropathy Is this a current diagnosis for this admission?: Yes Plan: Thiamine and folic acid. When the patient is back on an oral diet I will add a B complex vitamin. (7) Neutropenia associated with infection Is this a current diagnosis for this admission?: Yes Plan: White blood cell count slightly better today. We will continue to monitor. If it continues to trend upwards then no hematology consult. (8) Thrombocytopenia Is this a current diagnosis for this admission?: Yes Plan: Like her white blood cell count her platelet count is slightly better today. We will continue to monitor. (9) Anemia, macrocytic, nutritional Is this a current diagnosis for this admission?: Yes Plan: Her anemia is most likely due to poor nutritional intake from alcohol. Thiamine and folic acid have been added. Iron studies have been ordered. Expected will be mixed in that her serum iron will be low as well. - Time Time Spent with patient: 25-34 minutes Medications reviewed and adjusted accordingly: Yes
[2018-10-13 06:43] LABS: ALANINE AMINOTRANSFERASE 30 U/L (9-52); ALBUMIN 1.9 g/dL (3.5-5.0); ALKALINE PHOSPHATASE 173 U/L (38-126); ANION GAP 9 (5-19); ASPARTATE AMINO TRANSFERASE 81 U/L (14-36); BILIRUBIN,DIRECT 2.2 mg/dL (0.0-0.4); BILIRUBIN,TOTAL 2.8 mg/dL (0.2-1.3); CALCIUM 7.3 mg/dL (8.4-10.2); CARBON DIOXIDE 24 mmol/L (22-30); CHLORIDE 105 mmol/L (98-107); GLUCOSE 77 mg/dL (75-110); SODIUM 137.6 mmol/L (137-145); TOTAL PROTEIN 4.2 g/dL (6.3-8.2)
[2018-10-13 06:55] LABS: BLOOD UREA NITROGEN < 2 mg/dL (7-20)
[2018-10-13 06:56] LABS: POTASSIUM 2.6 mmol/L (3.6-5.0)
[2018-10-13 07:25] LABS: PLATELET COUNT 52 10^3/uL (150-450); WHITE BLOOD COUNT 1.6 10^3/uL (4.0-10.5)
[2018-10-13 07:29] LABS: ABSOLUTE LYMPHOCYTES# (MANUAL) 0.6 10^3/uL (0.5-4.7); ABSOLUTE MONOCYTES # (MANUAL) 0.1 10^3/uL (0.1-1.4); ABSOLUTE NEUTROPHILS# (MANUAL) 0.9 10^3/uL (1.7-8.2); BASOPHILS % (MANUAL) 0 % (0-2); EOSINOPHILS % (MANUAL) 0 % (0-6); LYMPHOCYTES % (MANUAL) 38 % (13-45); MONOCYTES % (MANUAL) 4 % (3-13); SEGMENTED NEUTROPHILS % (MAN) 58 % (42-78); TOTAL CELLS COUNTED 50
[2018-10-13 07:32] LABS: OVALOCYTES 1+; POIKILOCYTOSIS 2+; STOMATOCYTES 1+; TARGET CELLS SLIGHT; TEAR DROP CELLS SLIGHT; TOXIC GRANULATION 1+
[2018-10-13 07:33] LABS: PLATELET COMMENT DECREASED
[2018-10-13] MEDS: THIAMINE HCL 100 MG, FOLIC ACID 1 MG in NORMAL SALINE 250 ML IV SCH (10:48)
[2018-10-13] MEDS: CIPROFLOXACIN 400 MG/D5W RTU 400 MG/200 ML RTUPB IV SCH ×2 (12:12→21:08)
[2018-10-13] MEDS: POTASSI CL 20 MEQ/50 ML RIDER 20 MEQ/50 ML RTUPB IV SCH ×2 (13:36→16:04)
[2018-10-13] MEDS: MORPHINE SULFATE 10 MG/ML INJ IV PRN (19:53)
[2018-10-14] MEDS: DIAZEPAM 5 MG TABLET PO SCH ×7 (01:11→21:19)
[2018-10-14] MEDS: KETOROLAC TROMETHAMINE INJ/PF 30 MG/1 ML SDV IV PRN (01:15)
[2018-10-14] MEDS: HEPARIN SOD (PORCINE) 5,000 UNIT/ML 1 ML SYRINGE SUBCUT SCH ×3 (05:26→21:10)
[2018-10-14 05:31] LABS: ABSOLUTE RETICS # 0.115 10^6/uL (0.028-0.122); HEMATOCRIT 27.1 % (36.0-47.0); MEAN CORPUSCULAR HEMOGLOBIN 33.8 pg (27.0-33.4); MEAN CORPUSCULAR HGB CONC 33.3 g/dL (32.0-36.0); MEAN CORPUSCULAR VOLUME 102 fl (80-97); RED BLOOD COUNT 2.67 10^6/uL (3.72-5.28); RED CELL DISTRIBUTION WIDTH 15.2 % (11.5-14.0); RETICULOCYTE COUNT (AUTO) 4.32 % (0.66-2.85); WHITE BLOOD COUNT 1.8 10^3/uL (4.0-10.5)
[2018-10-14] MEDS: METRONIDAZOLE 500 MG/NS RTU 500 MG/100 ML RTUPB IV SCH ×2 (05:32→20:00)
[2018-10-14 05:42] LABS: ALANINE AMINOTRANSFERASE 35 U/L (9-52); ALKALINE PHOSPHATASE 185 U/L (38-126); ANION GAP 7 (5-19); ASPARTATE AMINO TRANSFERASE 70 U/L (14-36); BILIRUBIN,DIRECT 1.8 mg/dL (0.0-0.4); BILIRUBIN,TOTAL 2.6 mg/dL (0.2-1.3); CALCIUM 7.2 mg/dL (8.4-10.2); CARBON DIOXIDE 22 mmol/L (22-30); CHLORIDE 105 mmol/L (98-107); GLUCOSE 94 mg/dL (75-110); LIPASE 1170.9 U/L (23-300); SODIUM 133.9 mmol/L (137-145)
[2018-10-14 05:49] LABS: BLOOD UREA NITROGEN < 2 mg/dL (7-20)
[2018-10-14 05:50] LABS: POTASSIUM 2.8 mmol/L (3.6-5.0)
[2018-10-14 05:56] LABS: PLATELET COUNT 58 10^3/uL (150-450)
[2018-10-14 06:02] LABS: ABSOLUTE LYMPHOCYTES# (MANUAL) 0.5 10^3/uL (0.5-4.7); ABSOLUTE MONOCYTES # (MANUAL) 0.3 10^3/uL (0.1-1.4); ABSOLUTE NEUTROPHILS# (MANUAL) 0.9 10^3/uL (1.7-8.2); BASOPHILS % (MANUAL) 2 % (0-2); EOSINOPHILS % (MANUAL) 0 % (0-6); LYMPHOCYTES % (MANUAL) 28 % (13-45); MONOCYTES % (MANUAL) 18 % (3-13); NUCLEATED RED BLOOD CELLS 4 /100 WBC (0); SEGMENTED NEUTROPHILS % (MAN) 52 % (42-78); TOTAL CELLS COUNTED 50
[2018-10-14 06:03] LABS: ANISOCYTOSIS SLIGHT; HYPOCHROMASIA 1+; PLATELET COMMENT DECREASED; POLYCHROMASIA 1+; TARGET CELLS 1+; TEAR DROP CELLS SLIGHT
--- NOTE | 2018-10-14 06:38 | PDOC PROGRESS REPORT ---
Subjective Progress Note for:: 10/13/18 Subjective:: Patient is resting in bed eating ice chips. She appears very comfortable. She is appropriately interactive. Reason For Visit: PANCREATITIS, COLITIS, ALCOHOLIC ABUSE Physical Exam Vital Signs: Temp Pulse Resp BP Pulse Ox 98.9 F 110 H 18 112/72 100 10/13/18 19:27 10/13/18 19:27 10/13/18 19:27 10/13/18 19:27 10/13/18 19:27 Intake & Output 10/12/18 10/13/18 10/14/18 06:59 06:59 06:59 Intake Total 2800 1900 1391.2 Balance 2800 1900 1391.2 Weight 60.8 kg 61.3 kg General appearance: PRESENT: no acute distress, cooperative, well-developed Head exam: PRESENT: atraumatic, normocephalic Eye exam: PRESENT: conjunctiva pale. ABSENT: scleral icterus Ear exam: PRESENT: normal external ear exam Mouth exam: PRESENT: moist, tongue midline Respiratory exam: PRESENT: rales - Faint rales at right base, symmetrical, unlabored. ABSENT: rhonchi, tachypnea, wheezes Cardiovascular exam: PRESENT: RRR, +S1, +S2 GI/Abdominal exam: PRESENT: normal bowel sounds, soft. ABSENT: distended, guarding, tenderness Rectal exam: PRESENT: deferred Gentrourinary exam: ABSENT: indwelling catheter Extremities exam: ABSENT: calf tenderness, joint swelling, pedal edema Musculoskeletal exam: PRESENT: normal inspection. ABSENT: full ROM Neurological exam: PRESENT: alert, awake, oriented to person, oriented to place, oriented to time, oriented to situation, CN II-XII grossly intact. ABSENT: motor sensory deficit Psychiatric exam: PRESENT: appropriate affect, normal mood. ABSENT: agitated, anxious Focused psych exam: ABSENT: delusional, restlessness Skin exam: PRESENT: dry, warm. ABSENT: rash Results Laboratory Results: 10/13/18 05:46 10/13/18 05:46 10/13/18 10/13/18 10/13/18 05:46 05:46 05:46 WBC 1.6 L RBC 2.39 L Hgb 8.2 L Hct 24.4 L MCV 102 H MCH 34.2 H MCHC 33.6 RDW 15.5 H Plt Count 52 L Seg Neutrophils % Not Reportable Lymphocytes % Not Reportable Monocytes % Not Reportable Eosinophils % Not Reportable Basophils % Not Reportable Absolute Neutrophils Not Reportable Absolute Lymphocytes Not Reportable Absolute Monocytes Not Reportable Absolute Eosinophils Not Reportable Absolute Basophils Not Reportable Sodium 137.6 Potassium 2.6 L* Chloride 105 Carbon Dioxide 24 Anion Gap 9 BUN < 2 L Creatinine 0.35 L Est GFR ( Amer) > 60 Est GFR (Non-Af Amer) > 60 Glucose 77 Calcium 7.3 L Total Bilirubin 2.8 H AST 81 H ALT 30 Alkaline Phosphatase 173 H Total Protein 4.2 L Albumin 1.9 L Lipase 1238.8 H Impressions: Abdomen/Pelvis CT 10/12/18 00:00 IMPRESSION: 1. Persistent peripancreatic inflammatory changes all this is improved from prior study. 2. Increasing diffuse ascites although the amount remains small to moderate. 3. Small bilateral pleural effusions with associated atelectasis. This has increased from prior study. 4. No pancreatic pseudocyst. No evidence of focal abscess or hemorrhagic transformation of the pancreatitis. Assessment and Plan - Diagnosis (1) Colitis Is this a current diagnosis for this admission?: Yes Plan: Overall the patient is improving. We will continue her current antibiotic regimen. (2) Pancreatitis, alcoholic, acute Qualifiers: Acute pancreatitis complication: unspecified Qualified Code(s): K85.20 - Alcohol induced acute pancreatitis without necrosis or infection Is this a current diagnosis for this admission?: Yes Plan: Lipase is slowly improving. She is tolerating ice chips and is very comfortable. We will advance her diet to clear liquids. (3) Hypokalemia Is this a current diagnosis for this admission?: Yes Plan: Serum potassium is still low. She has 60 mEq of potassium chloride ordered. We will recheck her serum potassium level tomorrow. If it is still low consider continuous fluids with potassium. When she is tolerating her oral diet I will change to oral potassium chloride. (4) Alcohol myopathy Is this a current diagnosis for this admission?: Yes Plan: Continue physical therapy. Continue to encourage alcohol abstinence. (5) Alcoholic encephalopathy Is this a current diagnosis for this admission?: Yes Plan: Continue to encourage alcohol abstinence. Her mental state seems quite good today. (6) Alcoholic peripheral neuropathy Is this a current diagnosis for this admission?: Yes Plan: Continue to encourage abstinence from alcohol. She tolerates p.o. diet I will add a B complex vitamin. (7) Neutropenia associated with infection Is this a current diagnosis for this admission?: Yes Plan: Her white blood cell count is still quite low. If this continues I will ask hematology to evaluate the patient. We will add neutropenic precautions. (8) Thrombocytopenia Is this a current diagnosis for this admission?: Yes Plan: Platelet count is still low. If this does not improve I will ask hematology to see the patient. (9) Anemia, macrocytic, nutritional Is this a current diagnosis for this admission?: Yes Plan: We will add B complex vitamin and oral folic acid when tolerating oral diet. Thiamine and folic acid by IV until then. - Time Time Spent with patient: 15-24 minutes Medications reviewed and adjusted accordingly: Yes
[2018-10-14] MEDS: POTASSIUM CHLORIDE 20 MEQ/50 ML RTU IV SCH ×3 (06:45→12:29)
[2018-10-14 06:48] LABS: FOLATE 7.25 ng/mL (>2.76)
[2018-10-14] MEDS: CIPROFLOXACIN 400 MG/D5W RTU 400 MG/200 ML RTUPB IV SCH (10:15)
[2018-10-14] MEDS: THIAMINE HCL 100 MG, FOLIC ACID 1 MG in NORMAL SALINE 250 ML IV SCH (12:35)
[2018-10-14] MEDS: VANCOMYCIN HCL INJ 500 MG VIAL PO SCH ×2 (13:04→18:26)
[2018-10-14 14:05] LABS: ANION GAP 8 (5-19); BLOOD UREA NITROGEN 2 mg/dL (7-20); CALCIUM 7.4 mg/dL (8.4-10.2); CARBON DIOXIDE 21 mmol/L (22-30); CHLORIDE 105 mmol/L (98-107); GLUCOSE 107 mg/dL (75-110); POTASSIUM 3.6 mmol/L (3.6-5.0); SODIUM 134.1 mmol/L (137-145)
--- NOTE | 2018-10-14 17:35 | PDOC PROGRESS REPORT ---
Subjective Progress Note for:: 10/14/18 Subjective:: The patient was looking up abnormal hematology results on the Internet and is now worried about leukemia because of her pancytopenia. She is on neutropenic precautions. Unfortunately her stool is now positive for C. difficile. Reason For Visit: PANCREATITIS, COLITIS, ALCOHOLIC ABUSE Physical Exam Vital Signs: Temp Pulse Resp BP Pulse Ox 97.7 F 90 18 146/97 H 94 10/14/18 09:33 10/14/18 09:33 10/14/18 09:33 10/14/18 09:33 10/14/18 09:33 Intake & Output 10/13/18 10/14/18 10/15/18 06:59 06:59 06:59 Intake Total 1900 2000.2 50 Balance 1900 2000.2 50 Weight 61.3 kg 64.5 kg General appearance: PRESENT: no acute distress, thin, well-developed Head exam: PRESENT: atraumatic, normocephalic Respiratory exam: PRESENT: clear to auscultation yadiel, symmetrical, unlabored. ABSENT: rales, rhonchi, tachypnea, wheezes Cardiovascular exam: PRESENT: RRR, +S1, +S2 GI/Abdominal exam: PRESENT: normal bowel sounds, soft, tenderness - Mild tenderness. ABSENT: distended Gentrourinary exam: ABSENT: indwelling catheter Extremities exam: ABSENT: calf tenderness, pedal edema Neurological exam: PRESENT: alert, awake, oriented to person, oriented to place, oriented to time, oriented to situation, CN II-XII grossly intact Psychiatric exam: PRESENT: anxious - Worried about the possibility of leukemia, appropriate affect Focused psych exam: ABSENT: delusional, restlessness Results Laboratory Results: 10/14/18 04:30 10/14/18 04:30 10/14/18 10/14/18 04:30 04:30 WBC 1.8 L RBC 2.67 L Hgb 9.0 L Hct 27.1 L MCV 102 H MCH 33.8 H MCHC 33.3 RDW 15.2 H Plt Count 58 L Seg Neutrophils % Not Reportable Lymphocytes % Not Reportable Monocytes % Not Reportable Eosinophils % Not Reportable Basophils % Not Reportable Absolute Neutrophils Not Reportable Absolute Lymphocytes Not Reportable Absolute Monocytes Not Reportable Absolute Eosinophils Not Reportable Absolute Basophils Not Reportable Retic Count (auto) 4.32 H Absolute Retic 0.115 Sodium 133.9 L Potassium 2.8 L* Chloride 105 Carbon Dioxide 22 Anion Gap 7 BUN < 2 L Creatinine 0.36 L Est GFR ( Amer) > 60 Est GFR (Non-Af Amer) > 60 Glucose 94 Calcium 7.2 L Iron 58.0 TIBC 203 L % Saturation 29 Ferritin 38.20 Total Bilirubin 2.6 H AST 70 H ALT 35 Alkaline Phosphatase 185 H Total Protein 5.0 L Albumin 2.0 L Lipase 1170.9 H Vitamin B12 549.0 Folate 7.25 Impressions: Abdomen/Pelvis CT 10/12/18 00:00 IMPRESSION: 1. Persistent peripancreatic inflammatory changes all this is improved from prior study. 2. Increasing diffuse ascites although the amount remains small to moderate. 3. Small bilateral pleural effusions with associated atelectasis. This has inc reased from prior study. 4. No pancreatic pseudocyst. No evidence of focal abscess or hemorrhagic transformation of the pancreatitis. Assessment and Plan - Diagnosis (1) Colitis Is this a current diagnosis for this admission?: Yes Plan: The patient has stool positive for C. difficile. This could have been the source of the original colitis but it is unlikely since he diffuses give you profuse diarrhea. Regardless she is positive. I have discontinued the Cipro and Flagyl IV and started oral vancomycin. I have also added probiotics. (2) Pancreatitis, alcoholic, acute Qualifiers: Acute pancreatitis complication: unspecified Qualified Code(s): K85.20 - Alcohol induced acute pancreatitis without necrosis or infection Is this a current diagnosis for this admission?: Yes Plan: Lipase is improving and the patient has started on clear liquid diet. If she tolerates this I suggest full liquids tomorrow. (3) Hypokalemia Is this a current diagnosis for this admission?: Yes Plan: Potassium is found in the normal range. Now that we are advancing her diet I have started potassium chloride 20 mEq twice daily. (4) Alcohol myopathy Is this a current diagnosis for this admission?: Yes Plan: Continue physical therapy and alcohol abstinence. (5) Alcoholic encephalopathy Is this a current diagnosis for this admission?: Yes Plan: Patient is clear. Encephalopathy resolved. Encourage alcohol abstinence. (6) Alcoholic peripheral neuropathy Is this a current diagnosis for this admission?: Yes Plan: B complex vitamins. Alcohol abstinence. (7) Neutropenia associated with infection Is this a current diagnosis for this admission?: Yes Plan: The patient is worried about leukemia. I explained that it is very unlikely that she has leukemia but this is more of a problem with acute infection on top of depleted bone marrow. Hematology will see the patient. (8) Thrombocytopenia Is this a current diagnosis for this admission?: Yes Plan: Hematology consult pending (9) Anemia, macrocytic, nutritional Is this a current diagnosis for this admission?: Yes Plan: Hematology consult pending. Advance diet slowly but B complex, folic acid and vitamin B12 supplements have started. Of note her reticulocyte count is high and so her body is definitely trying to compensate. - Time Time Spent with patient: 25-34 minutes Medications reviewed and adjusted accordingly: Yes
[2018-10-14] MEDS: LACTOBACILLUS ACIDOPHILUS 250 MG TAB PO SCH (18:26)
[2018-10-14] MEDS: MORPHINE SULFATE 10 MG/ML INJ IV PRN (21:18)
[2018-10-14] MEDS: POTASSIUM CHLORIDE 10 MEQ CAPSULE.ER PO SCH (21:19)
[2018-10-15] MEDS: VANCOMYCIN HCL INJ 500 MG VIAL PO SCH ×5 (00:12→23:32)
[2018-10-15] MEDS: DIAZEPAM 5 MG TABLET PO SCH ×6 (03:12→21:28)
[2018-10-15] MEDS: HEPARIN SOD (PORCINE) 5,000 UNIT/ML 1 ML SYRINGE SUBCUT SCH ×3 (05:35→21:14)
[2018-10-15 06:48] LABS: HEMATOCRIT 26.1 % (36.0-47.0); HEMOGLOBIN 8.9 g/dL (12.0-15.5); MEAN CORPUSCULAR HEMOGLOBIN 34.2 pg (27.0-33.4); MEAN CORPUSCULAR VOLUME 101 fl (80-97); RED BLOOD COUNT 2.59 10^6/uL (3.72-5.28); RED CELL DISTRIBUTION WIDTH 15.7 % (11.5-14.0); WHITE BLOOD COUNT 2.2 10^3/uL (4.0-10.5)
[2018-10-15 07:22] LABS: ABSOLUTE LYMPHOCYTES# (MANUAL) 0.4 10^3/uL (0.5-4.7); ABSOLUTE MONOCYTES # (MANUAL) 0.4 10^3/uL (0.1-1.4); ABSOLUTE NEUTROPHILS# (MANUAL) 1.3 10^3/uL (1.7-8.2); BASOPHILS % (MANUAL) 0 % (0-2); EOSINOPHILS % (MANUAL) 0 % (0-6); LYMPHOCYTES % (MANUAL) 19 % (13-45); MONOCYTES % (MANUAL) 20 % (3-13); SEGMENTED NEUTROPHILS % (MAN) 61 % (42-78); TOTAL CELLS COUNTED 100
[2018-10-15 07:23] LABS: ANISOCYTOSIS SLIGHT; PLATELET COMMENT DECREASED; PLATELET COUNT 86 10^3/uL (150-450)
[2018-10-15] MEDS: LACTOBACILLUS ACIDOPHILUS 250 MG TAB PO SCH ×2 (11:28→18:34)
[2018-10-15] MEDS: THIAMINE HCL 100 MG TABLET PO SCH (11:29)
[2018-10-15] MEDS: CYANOCOBALAMIN (VITAMIN B-12) 1,000 MCG TABLET PO SCH (11:29)
[2018-10-15] MEDS: FOLIC ACID 1 MG TABLET PO SCH (11:29)
[2018-10-15] MEDS: POTASSIUM CHLORIDE 10 MEQ CAPSULE.ER PO SCH ×2 (11:35→21:28)
[2018-10-15] MEDS ORDERED: FERRIC CARBOXYMALTOSE INJ 750 MG/15 ML VIAL IV SCH (12:45)
--- NOTE | 2018-10-15 12:47 | PDOC CONSULTATION ---
Consultation Consult Date: 10/15/18 Consult reason:: Hematology/Oncology consultation was requested for patient with pancytopenia. History of Present Illness Admission Date/PCP: 10/09/18 10:47 History of Present Illness: FEDE IYER is a 43 year old female with longstanding alcohol abuse who states that she was told many years ago that she was anemic but does not remember having been told in the past that her other blood counts were low. She states that she had Vit D12 shots in the past, but these stopped when she lost insurance. She has had progressive abdominal pain over the past few months, and decided that it was time to come in and "detox" again. She was treated for pancreatitis last year and has been admitted several times for alcohol withdraw, but always started drinking again. She underwent gastric bypass about 12 years ago. She also reports chronic diarrhea for the past several years and dif ficulty walking and dizziness due to neuropathy. Today, she states that she is feeling better. She denies having seizures. Past Medical History Cardiac Medical History: Reports: Congestive Heart Failure Pulmonary Medical History: Reports: Asthma Psychiatric Medical History: Reports: Depression Hematology: Reports: Anemia Past Surgical History Past Surgical History: Reports: Cholecystectomy, Gastric Bypass Surgery Social History Information Source: Patient Occupation: Unemployed. Lives with: Spouse/Significant other Smoking Status: Current Every Day Smoker Frequency of Alcohol Use: Heavy Hx Recreational Drug Use: No Drugs: None Hx Prescription Drug Abuse: No Past Social History Note: She had 3 children, 1 . Family History Family History: Hypertension, Other - Breast cancer Parental Family History Reviewed: Yes - MGM with breast cancer. MGF with CAD. Children Family History Reviewed: Yes Sibling(s) Family History Reviewed.: Yes - Brother with Alcoholism Medication/Allergy Home Medications: No Home Medications 10/09/18 Allergies/Adverse Reactions: Penicillins Allergy (Verified 07/10/18 14:44) Review of Systems Constitutional: ABSENT: fever(s), headache(s) Eyes: ABSENT: visual disturbances Ears: ABSENT: hearing changes Nose, Mouth, and Throat: ABSENT: sore throat Cardiovascular: ABSENT: chest pain Respiratory: ABSENT: dyspnea Gastrointestinal: PRESENT: abdominal pain, nausea Genitourinary: ABSENT: dysuria Musculoskeletal: ABSENT: back pain Integumentary: ABSENT: pruritus Neurological: PRESENT: frequent falls, vertigo, weakness Hematologic/Lymphatic: ABSENT: lymphadenopathy Physical Exam Vital Signs: Temp Pulse Resp BP Pulse Ox 97.9 F 88 18 98/61 L 96 10/15/18 08:31 10/15/18 08:31 10/15/18 08:31 10/15/18 08:31 10/15/18 08:31 Intake & Output 10/14/18 10/15/18 10/16/18 06:59 06:59 06:59 Intake Total 2001.2 1151.2 Output Total 3 Balance 2000.2 1148.2 Weight 64.5 kg 64 kg General appearance: PRESENT: well-developed, well-nourished Exam: 43 year old female. Head exam: PRESENT: normocephalic Eye exam: PRESENT: EOMI, PERRLA Mouth exam: PRESENT: tongue midline Neck exam: ABSENT: lymphadenopathy, tenderness Respiratory exam: PRESENT: clear to auscultation yadiel, unlabored Cardiovascular exam: PRESENT: RRR GI/Abdominal exam: PRESENT: soft, tenderness Extremities exam: ABSENT: pedal edema Musculoskeletal exam: PRESENT: normal inspection Neurological exam: PRESENT: alert, awake, other - She was not visualized ambulating. Some hand tremors. Psychiatric exam: PRESENT: appropriate affect Focused psych exam: ABSENT: pressured speech, restlessness Skin exam: PRESENT: normal color Results Laboratory Results: 10/15/18 06:18 10/14/18 13:28 10/14/18 10/15/18 13:28 06:18 WBC 2.2 L RBC 2.59 L Hgb 8.9 L Hct 26.1 L MCV 101 H MCH 34.2 H MCHC 34.0 RDW 15.7 H Plt Count 86 L Seg Neutrophils % Not Reportable Lymphocytes % Not Reportable Monocytes % Not Reportable Eosinophils % Not Reportable Basophils % Not Reportable Absolute Neutrophils Not Reportable Absolute Lymphocytes Not Reportable Absolute Monocytes Not Reportable Absolute Eosinophils Not Reportable Absolute Basophils Not Reportable Sodium 134.1 L Potassium 3.6 Chloride 105 Carbon Dioxide 21 L Anion Gap 8 BUN 2 L Creatinine 0.31 L Est GFR ( Amer) > 60 Est GFR (Non-Af Amer) > 60 Glucose 107 Calcium 7.4 L Impressions: Abdomen/Pelvis CT 10/12/18 00:00 IMPRESSION: 1. Persistent peripancreatic inflammatory changes all this is improved from prior study. 2. Increasing diffuse ascites although the amount remains small to moderate. 3. Small bilateral pleural effusions with associated atelectasis. This has increased from prior study. 4. No pancreatic pseudocyst. No evidence of focal abscess or hemorrhagic transformation of the pancreatitis. Assessment & Plan - Diagnosis (1) Pancreatitis, alcoholic, acute Qualifiers: Acute pancreatitis complication: unspecified Qualified Code(s): K85.20 - Alcohol induced acute pancreatitis without necrosis or infection Is this a current diagnosis for this admission?: Yes Plan: Patient is on clear liquids. Lipase slowly improving. (2) Anemia, macrocytic, nutritional Is this a current diagnosis for this admission?: Yes (3) Thrombocytopenia Is this a current diagnosis for this admission?: Yes (4) Neutropenia associated with infection Is this a current diagnosis for this admission?: Yes - Plan Summary Plan Summary: I had a long conversation with the patient and was very honest with her. I have explained that her low blood counts could be due to B12 deficiency or to iron deficiency. She has had evidence of both. I will arrange for Injectafer x 1 dose. Since she has had gastric bypass, she may not be able to absorb oral iron. PO iron is also not recommended with current GI problems. She is on Thiamin and B12. We also discussed the fact that the pancytopenia could be due to her current infection. She is on appropriate antibiotics. However, most likely reason is because her liver is failing. She should be followed by GI for this liver disease. We discussed possible liver biopsy to tell the degree of cirrhosis. Colonoscopy for the diarrhea if not performed recently should be considered. Also , AFP and monitoring for primary liver cancer should be performed in the future. We discussed avoiding all harmful substances to the liver, including alcohol. Although I do not recommend bone marrow biopsy at this time, I will be happy to follow her.
[2018-10-15 13:14] LABS: ANION GAP 6 (5-19); CALCIUM 7.7 mg/dL (8.4-10.2); CARBON DIOXIDE 23 mmol/L (22-30); CHLORIDE 104 mmol/L (98-107); GLUCOSE 99 mg/dL (75-110); POTASSIUM 3.3 mmol/L (3.6-5.0)
[2018-10-15 13:17] LABS: BLOOD UREA NITROGEN < 2 mg/dL (7-20)
[2018-10-15] MEDS ORDERED: FERRIC CARBOXYMALTOSE 750 MG in NORMAL SALINE 250 ML IV ONE (13:30)
--- NOTE | 2018-10-15 18:44 | PDOC PROGRESS REPORT ---
Subjective Progress Note for:: 10/15/18 Subjective:: This is 43 years old female patient with past medical history of asthma depression provoking dependence and alcoholism presented with chief complaint of abdominal pain. CT scan of the abdomen is compatible with acute pancreatitis and she has also mild to moderate thickening of the colon which is compatible with infectious colitis. Her lipase is 3800 and her serologies positive for C. difficile colitis. Patient's managed accordingly with IV hydration pain manage ment and for C. difficile colitis she is getting purulent vancomycin. This morning I seen patient resting in bed comfortably. She is not in pain or distress. Reason For Visit: PANCREATITIS, COLITIS, ALCOHOLIC ABUSE Physical Exam Vital Signs: Temp Pulse Resp BP Pulse Ox 98.5 F 86 24 H 114/73 94 10/15/18 16:22 10/15/18 16:22 10/15/18 16:22 10/15/18 16:22 10/15/18 16:22 Intake & Output 10/14/18 10/15/18 10/16/18 06:59 06:59 06:59 Intake Total 2000.2 1151.2 720 Output Total 3 Balance 2000.2 1148.2 720 Weight 64.5 kg 64 kg General appearance: PRESENT: no acute distress, cooperative Head exam: PRESENT: atraumatic Neck exam: ABSENT: carotid bruit, JVD, lymphadenopathy, thyromegaly Respiratory exam: PRESENT: clear to auscultation yadiel. ABSENT: rales, rhonchi, wheezes Cardiovascular exam: PRESENT: RRR. ABSENT: diastolic murmur, rubs, systolic murmur GI/Abdominal exam: PRESENT: normal bowel sounds, soft. ABSENT: distended, guarding, mass, organolmegaly, rebound, tenderness Neurological exam: PRESENT: alert, awake, oriented to time, oriented to situation Results Laboratory Results: 10/15/18 06:18 10/15/18 12:22 10/15/18 10/15/18 06:18 12:22 WBC 2.2 L RBC 2.59 L Hgb 8.9 L Hct 26.1 L MCV 101 H MCH 34.2 H MCHC 34.0 RDW 15.7 H Plt Count 86 L Seg Neutrophils % Not Reportable Lymphocytes % Not Reportable Monocytes % Not Reportable Eosinophils % Not Reportable Basophils % Not Reportable Absolute Neutrophils Not Reportable Absolute Lymphocytes Not Reportable Absolute Monocytes Not Reportable Absolute Eosinophils Not Reportable Absolute Basophils Not Reportable Sodium 133.0 L Potassium 3.3 L Chloride 104 Carbon Dioxide 23 Anion Gap 6 BUN < 2 L Creatinine 0.33 L Est GFR ( Amer) > 60 Est GFR (Non-Af Amer) > 60 Glucose 99 Calcium 7.7 L Impressions: Abdomen/Pelvis CT 10/12/18 00:00 IMPRESSION: 1. Persistent peripancreatic inflammatory changes all this is improved from prior study. 2. Increasing diffuse ascites although the amount remains small to moderate. 3. Small bilateral pleural effusions with associated atelectasis. This has increased from prior study. 4. No pancreatic pseudocyst. No evidence of focal abscess or hemorrhagic transformation of the pancreatitis. Assessment and Plan - Diagnosis (1) C. difficile colitis Is this a current diagnosis for this admission?: Yes Plan: Continue p.o. vancomycin. (2) Alcohol induced acute pancreatitis Is this a current diagnosis for this admission?: Yes Plan: Continue hydration. Patient reports this her abdominal pain is improving. (3) Tobacco dependence Is this a current diagnosis for this admission?: Yes Plan: Patient counseled and encouraged to quit smoking. (4) Pancytopenia and microcytic anemia Is this a current diagnosis for this admission?: Yes Plan: Most probably related to chronic alcoholism. (5) Depression Is this a current diagnosis for this admission?: Yes Plan: Continue her home meds and follow-up with outpatient psychiatry.
[2018-10-15] MEDS: MORPHINE SULFATE 10 MG/ML INJ IV PRN (21:28)
[2018-10-16] MEDS: DIAZEPAM 5 MG TABLET PO SCH ×6 (01:28→21:54)
[2018-10-16] MEDS: HEPARIN SOD (PORCINE) 5,000 UNIT/ML 1 ML SYRINGE SUBCUT SCH ×3 (05:03→21:54)
[2018-10-16] MEDS: VANCOMYCIN HCL INJ 500 MG VIAL PO SCH ×3 (05:20→17:09)
--- NOTE | 2018-10-16 09:09 | PDOC PROGRESS REPORT ---
Subjective Progress Note for:: 10/16/18 Subjective:: Patient states that she is trying to be very compliant. She is drinking her gatorade and was able to get up on her own yesterday to get to the sink. She participated in PT this morning. ROS: No nausea. No constipation. No dyspnea. No anxiety or tremors. Reason For Visit: PANCREATITIS, COLITIS, ALCOHOLIC ABUSE Physical Exam Vital Signs: Temp Pulse Resp BP Pulse Ox 98.2 F 90 18 107/57 L 90 L 10/16/18 08:17 10/16/18 08:17 10/16/18 08:17 10/16/18 08:17 10/16/18 08:17 Intake & Output 10/15/18 10/16/18 10/17/18 06:59 06:59 06:59 Intake Total 1151.2 720 Output Total 3 240 Balance 1148.2 480 Weight 64 kg 63.9 kg General appearance: PRESENT: no acute distress, thin Head exam: PRESENT: normocephalic Respiratory exam: PRESENT: clear to auscultation yadiel, unlabored Cardiovascular exam: PRESENT: RRR GI/Abdominal exam: PRESENT: soft. ABSENT: tenderness Extremities exam: ABSENT: pedal edema Neurological exam: PRESENT: alert, awake Psychiatric exam: PRESENT: appropriate affect Skin exam: PRESENT: normal color Results Laboratory Results: 10/15/18 06:18 10/15/18 12:22 10/15/18 10/16/18 12:22 03:30 Sodium 133.0 L Potassium 3.3 L Chloride 104 Carbon Dioxide 23 Anion Gap 6 BUN < 2 L Creatinine 0.33 L Est GFR ( Amer) > 60 Est GFR (Non-Af Amer) > 60 Glucose 99 Calcium 7.7 L Lipase 570.8 H Impressions: Abdomen/Pelvis CT 10/12/18 00:00 IMPRESSION: 1. Persistent peripancreatic inflammatory changes all this is improved from prior study. 2. Increasing diffuse ascites although the amount remains small to moderate. 3. Small bilateral pleural effusions with associated atelectasis. This has increased from prior study. 4. No pancreatic pseudocyst. No evidence of focal abscess or hemorrhagic transformation of the pancreatitis. Assessment & Plan - Diagnosis (1) Pancreatitis, alcoholic, acute Qualifiers: Acute pancreatitis complication: unspecified Qualified Code(s): K85.20 - Alcohol induced acute pancreatitis without necrosis or infection Is this a current diagnosis for this admission?: Yes Plan: As per primary team. Her Lipase continues to improve. (2) Anemia, macrocytic, nutritional Is this a current diagnosis for this admission?: Yes Plan: Stable. She received Iron. Continues Thiamine and B12 supplements. (3) Thrombocytopenia Is this a current diagnosis for this admission?: Yes Plan: Improved. She still has echymoses from needle sticks. Will try to place her on bleeding precautions. I will check PT/PTT as well to see if there is a coagulopathy due to the liver dysfunction. (4) Neutropenia associated with infection Is this a current diagnosis for this admission?: Yes Plan: Improved. ANC is >1.0 today. If her ANC continues to be >1.0 for 2-3 days, then I will stop neutropenic precautions.
[2018-10-16] MEDS: LACTOBACILLUS ACIDOPHILUS 250 MG TAB PO SCH ×2 (09:27→17:09)
[2018-10-16] MEDS: CYANOCOBALAMIN (VITAMIN B-12) 1,000 MCG TABLET PO SCH (09:28)
[2018-10-16] MEDS: THIAMINE HCL 100 MG TABLET PO SCH (09:28)
[2018-10-16] MEDS: FOLIC ACID 1 MG TABLET PO SCH (09:28)
[2018-10-16] MEDS: POTASSIUM CHLORIDE 10 MEQ CAPSULE.ER PO SCH ×2 (09:28→21:53)
[2018-10-16] MEDS ORDERED: DIPHENOXYLATE HCL/ATROP SULF 2.5-0.025 MG TABLET PO ONE (12:00)
[2018-10-16 12:59] LABS: ANION GAP 7 (5-19); CALCIUM 8.4 mg/dL (8.4-10.2); CARBON DIOXIDE 24 mmol/L (22-30); CHLORIDE 104 mmol/L (98-107); GLUCOSE 88 mg/dL (75-110); POTASSIUM 3.7 mmol/L (3.6-5.0); SODIUM 135.4 mmol/L (137-145)
[2018-10-16 13:08] LABS: BLOOD UREA NITROGEN < 2 mg/dL (7-20)
[2018-10-16] MEDS: METRONIDAZOLE 500 MG TABLET PO SCH ×2 (13:25→17:09)
--- NOTE | 2018-10-16 13:36 | PSYCHOLOGICAL NOTE ---
Psych Note - Psych Note Date seen by psych provider: 10/13/18 Time seen by psych provider: 09:00 - 0920 Psych Note: Reason for Consult: Substance abuse and capacity FEDE IYER is a 43 year old female who presents with history of several days of abdominal pain, she says going on for 2 months but worse the last few days. Impression/Plan: Patient is cleared from acute psychiatric services. Patient was clearly able to demonstrate both orientation and higher cognitive functions (ie memory, abstract and executive thought processes, problem-solving etc). She discussed understanding she will be full detoxed once discharged from [facility] and requested information on continued treatment options for her alcohol abuse once discharged. Patient engaged with clinician in discussing her options and her fears of extended rehab placement. She is willing to look over information for some rehab locations and expressed high interest in intense outpatient services through [facility] (3 days a week program). Patient was provided all information and expressed understand that if she had further questions or concerns she just needs to request to see the behavioral health team. Please re-consult if new concerns arise. Dr. Richards was consulted on the care and management of this patient; attending physician is in agreement with recommendations and disposition.
--- NOTE | 2018-10-16 15:45 | PDOC PROGRESS REPORT ---
Subjective Progress Note for:: 10/16/18 Subjective:: I seen patient resting in bed comfortably. She complains of frequent watery diarrhea. She has been getting p.o. vancomycin for C. difficile colitis. I did Flagyl. Her lipase is trending down. Reason For Visit: PANCREATITIS, COLITIS, ALCOHOLIC ABUSE Physical Exam Vital Signs: Temp Pulse Resp BP Pulse Ox 98.4 F 79 18 112/73 87 L 10/16/18 11:54 10/16/18 14:00 10/16/18 11:54 10/16/18 11:54 10/16/18 11:54 Intake & Output 10/15/18 10/16/18 10/17/18 06:59 06:59 06:59 Intake Total 1151.2 720 440 Output Total 3 240 Balance 1148.2 480 440 Weight 64 kg 63.9 kg General appearance: PRESENT: no acute distress Head exam: PRESENT: atraumatic Eye exam: PRESENT: conjunctiva pink Neck exam: ABSENT: carotid bruit, JVD, lymphadenopathy, thyromegaly Respiratory exam: PRESENT: clear to auscultation yadiel. ABSENT: rales, rhonchi, wheezes Cardiovascular exam: PRESENT: RRR. ABSENT: diastolic murmur, rubs, systolic murmur GI/Abdominal exam: PRESENT: normal bowel sounds, soft. ABSENT: distended, guarding, mass, organolmegaly, rebound, tenderness Results Laboratory Results: 10/15/18 06:18 10/16/18 12:02 10/16/18 10/16/18 03:30 12:02 Sodium 135.4 L Potassium 3.7 Chloride 104 Carbon Dioxide 24 Anion Gap 7 BUN < 2 L Creatinine 0.35 L Est GFR ( Amer) > 60 Est GFR (Non-Af Amer) > 60 Glucose 88 Calcium 8.4 Lipase 570.8 H Impressions: Abdomen/Pelvis CT 10/12/18 00:00 IMPRESSION: 1. Persistent peripancreatic inflammatory changes all this is improved from prior study. 2. Increasing diffuse ascites although the amount remains small to moderate. 3. Small bilateral pleural effusions with associated atelectasis. This has increased from prior study. 4. No pancreatic pseudocyst. No evidence of focal abscess or hemorrhagic transformation of the pancreatitis. Assessment and Plan - Diagnosis (1) C. difficile colitis Is this a current diagnosis for this admission?: Yes Plan: Flagyl is added to vancomycin. Patient also given a dose of Lomotil. (2) Alcohol induced acute pancreatitis Is this a current diagnosis for this admission?: Yes Plan: Continue hydration. Patient reports this her abdominal pain is improving. (3) Tobacco dependence Is this a current diagnosis for this admission?: Yes Plan: Patient counseled and encouraged to quit smoking. (4) Pancytopenia and microcytic anemia Is this a current diagnosis for this admission?: Yes Plan: Her pancytopenia is improving today her white cell count is 2.2. (5) Depression Is this a current diagnosis for this admission?: Yes Plan: Continue her home meds and follow-up with outpatient psychiatry.
[2018-10-16] MEDS: DIPHENOXYLATE HCL/ATROP SULF 2.5-0.025 MG TABLET PO PRN (20:15)
[2018-10-17] MEDS: METRONIDAZOLE 500 MG TABLET PO SCH ×4 (01:31→17:31)
[2018-10-17] MEDS: DIAZEPAM 5 MG TABLET PO SCH ×6 (01:32→21:07)
[2018-10-17] MEDS: VANCOMYCIN HCL INJ 500 MG VIAL PO SCH ×4 (01:34→17:31)
[2018-10-17] MEDS: DIPHENOXYLATE HCL/ATROP SULF 2.5-0.025 MG TABLET PO PRN ×3 (05:49→17:31)
[2018-10-17] MEDS: HEPARIN SOD (PORCINE) 5,000 UNIT/ML 1 ML SYRINGE SUBCUT SCH ×3 (06:14→21:07)
[2018-10-17 07:28] LABS: INTERNATIONAL RATION (INR) 1.31; PROTHROMBIN TIME 16.9 SEC (11.4-15.4)
[2018-10-17 07:29] LABS: PARTIAL THROMBOPLASTIN TIME 36.6 SEC (23.5-35.8)
[2018-10-17 07:48] LABS: HEMATOCRIT 25.1 % (36.0-47.0); HEMOGLOBIN 8.4 g/dL (12.0-15.5); MEAN CORPUSCULAR HEMOGLOBIN 34.4 pg (27.0-33.4); MEAN CORPUSCULAR HGB CONC 33.6 g/dL (32.0-36.0); MEAN CORPUSCULAR VOLUME 102 fl (80-97); RED BLOOD COUNT 2.45 10^6/uL (3.72-5.28); RED CELL DISTRIBUTION WIDTH 15.3 % (11.5-14.0); WHITE BLOOD COUNT 2.2 10^3/uL (4.0-10.5)
[2018-10-17 07:55] LABS: ANION GAP 7 (5-19); CARBON DIOXIDE 23 mmol/L (22-30); CHLORIDE 106 mmol/L (98-107); GLUCOSE 112 mg/dL (75-110); LIPASE 508.4 U/L (23-300); POTASSIUM 3.2 mmol/L (3.6-5.0); SODIUM 136.4 mmol/L (137-145)
[2018-10-17 07:58] LABS: BLOOD UREA NITROGEN < 2 mg/dL (7-20)
[2018-10-17 08:13] LABS: ABSOLUTE LYMPHOCYTES# (MANUAL) 0.6 10^3/uL (0.5-4.7); ABSOLUTE MONOCYTES # (MANUAL) 0.3 10^3/uL (0.1-1.4); ABSOLUTE NEUTROPHILS# (MANUAL) 1.3 10^3/uL (1.7-8.2); BASOPHILS % (MANUAL) 1 % (0-2); EOSINOPHILS % (MANUAL) 1 % (0-6); LYMPHOCYTES % (MANUAL) 26 % (13-45); MONOCYTES % (MANUAL) 15 % (3-13); SEGMENTED NEUTROPHILS % (MAN) 57 % (42-78); TOTAL CELLS COUNTED 100
[2018-10-17 08:15] LABS: ANISOCYTOSIS SLIGHT; PLATELET CLUMPS PRESENT; PLATELET COMMENT DECREASED; PLATELET COUNT 114 10^3/uL (150-450); POLYCHROMASIA SLIGHT; TOXIC GRANULATION SLIGHT; TOXIC VACUOLATION PRESENT
[2018-10-17] MEDS: FOLIC ACID 1 MG TABLET PO SCH (10:56)
[2018-10-17] MEDS: CYANOCOBALAMIN (VITAMIN B-12) 1,000 MCG TABLET PO SCH (10:56)
[2018-10-17] MEDS: LACTOBACILLUS ACIDOPHILUS 250 MG TAB PO SCH ×2 (10:56→17:31)
[2018-10-17] MEDS: POTASSIUM CHLORIDE 10 MEQ CAPSULE.ER PO SCH ×2 (10:57→21:07)
[2018-10-17] MEDS: THIAMINE HCL 100 MG TABLET PO SCH (10:57)
[2018-10-17] MEDS: GABAPENTIN 300 MG CAPSULE PO SCH ×2 (11:07→17:31)
[2018-10-17] MEDS ORDERED: GABAPENTIN 300 MG CAPSULE PO SCH (14:00)
--- NOTE | 2018-10-17 15:06 | PDOC PROGRESS REPORT ---
Subjective Progress Note for:: 10/17/18 Subjective:: C patient resting in bed comfortably. She is awake alert oriented. She reports this her diarrhea is subsiding after she started on Flagyl and Lomotil. If she remains stable patient is a potential discharge for tomorrow. Reason For Visit: PANCREATITIS, COLITIS, ALCOHOLIC ABUSE Physical Exam Vital Signs: Temp Pulse Resp BP Pulse Ox 98.1 F 110 H 20 100/57 L 100 10/17/18 11:48 10/17/18 11:48 10/17/18 11:48 10/17/18 11:48 10/17/18 11:48 Intake & Output 10/16/18 10/17/18 10/18/18 06:59 06:59 06:59 Intake Total 720 2480 360 Output Total 240 700 Balance 480 1780 360 Weight 63.9 kg 63.5 kg General appearance: PRESENT: no acute distress Neck exam: ABSENT: carotid bruit, JVD, lymphadenopathy, thyromegaly Respiratory exam: PRESENT: clear to auscultation yadiel. ABSENT: rales, rhonchi, wheezes Cardiovascular exam: PRESENT: RRR. ABSENT: diastolic murmur, rubs, systolic murmur GI/Abdominal exam: PRESENT: normal bowel sounds, soft. ABSENT: distended, guarding, mass, organolmegaly, rebound, tenderness Extremities exam: PRESENT: full ROM. ABSENT: calf tenderness, clubbing, pedal edema Neurological exam: PRESENT: alert, awake, oriented to time, oriented to situation Results Laboratory Results: 10/17/18 06:40 10/17/18 06:40 10/17/18 10/17/18 06:40 06:40 WBC 2.2 L RBC 2.45 L Hgb 8.4 L Hct 25.1 L MCV 102 H MCH 34.4 H MCHC 33.6 RDW 15.3 H Plt Count 114 L Seg Neutrophils % Not Reportable Lymphocytes % Not Reportable Monocytes % Not Reportable Eosinophils % Not Reportable Basophils % Not Reportable Absolute Neutrophils Not Reportable Absolute Lymphocytes Not Reportable Absolute Monocytes Not Reportable Absolute Eosinophils Not Reportable Absolute Basophils Not Reportable Sodium 136.4 L Potassium 3.2 L Chloride 106 Carbon Dioxide 23 Anion Gap 7 BUN < 2 L Creatinine 0.35 L Est GFR ( Amer) > 60 Est GFR (Non-Af Amer) > 60 Glucose 112 H Calcium 8.0 L Lipase 508.4 H Impressions: Abdomen/Pelvis CT 10/12/18 00:00 IMPRESSION: 1. Persistent peripancreatic inflammatory changes all this is improved from prior study. 2. Increasing diffuse ascites although the amount remains small to moderate. 3. Small bilateral pleural effusions with associated atelectasis. This has increased from prior study. 4. No pancreatic pseudocyst. No evidence of focal abscess or hemorrhagic transformation of the pancreatitis. Assessment and Plan - Diagnosis (1) C. difficile colitis Is this a current diagnosis for this admission?: Yes Plan: Flagyl is added to vancomycin. Patient also given a dose of Lomotil. (2) Alcohol induced acute pancreatitis Is this a current diagnosis for this admission?: Yes Plan: Continue hydration. Patient reports this her abdominal pain is improving. (3) Tobacco dependence Is this a current diagnosis for this admission?: Yes Plan: Patient counseled and encouraged to quit smoking. (4) Pancytopenia and microcytic anemia Is this a current diagnosis for this admission?: Yes Plan: Her pancytopenia is improving today her white cell count is 2.2. (5) Depression Is this a current diagnosis for this admission?: Yes Plan: Continue her home meds and follow-up with outpatient psychiatry.
[2018-10-18] MEDS: METRONIDAZOLE 500 MG TABLET PO SCH ×2 (00:17→05:52)
[2018-10-18] MEDS: VANCOMYCIN HCL INJ 500 MG VIAL PO SCH ×2 (00:17→05:52)
[2018-10-18] MEDS: GABAPENTIN 300 MG CAPSULE PO SCH ×2 (02:30→11:06)
[2018-10-18] MEDS: DIAZEPAM 5 MG TABLET PO SCH (02:30)
[2018-10-18] MEDS: HEPARIN SOD (PORCINE) 5,000 UNIT/ML 1 ML SYRINGE SUBCUT SCH (05:52)
[2018-10-18] MEDS ORDERED: NORMAL SALINE 1000 ML 1,000 ML IV ONE (07:34)
--- NOTE | 2018-10-18 10:20 | PDOC DISCHARGE SUMMARY ---
General - Admit/Disc Date/PCP Admission Date/Primary Care Provider: 10/09/18 10:47 Discharge Date: 10/18/18 - Discharge Diagnosis (1) C. difficile colitis Is this a current diagnosis for this admission?: Yes (2) Alcohol induced acute pancreatitis Is this a current diagnosis for this admission?: Yes (3) Tobacco dependence Is this a current diagnosis for this admission?: Yes (4) Pancytopenia and microcytic anemia Is this a current diagnosis for this admission?: Yes (5) Depression Is this a current diagnosis for this admission?: Yes - Additional Information Prescriptions: Gabapentin [Neurontin 300 mg Capsule] 300 mg PO Q8A #30 capsule Metronidazole [Flagyl 500 mg Tablet] 500 mg PO TID #30 tablet Vancomycin HCl [Vancocin HCl] 125 mg PO Q6H #40 capsule Home Medications: Gabapentin [Neurontin 300 mg Capsule] 300 mg PO Q8A #30 capsule 10/18/18 Metronidazole [Flagyl 500 mg Tablet] 500 mg PO TID #30 tablet 10/18/18 Vancomycin HCl [Vancocin HCl] 125 mg PO Q6H #40 capsule 10/18/18 History of Present Illness History of Present Illness: FEDE IYER is a 43 year old female who presents with history of several days of abdominal pain, she says going on for 2 months but worse the last few days. She says she also drinks about 12 pack of beer every day for a very long time. Her last drink was yesterday. She has not had any fevers. She has had some diarrhea but says that is pretty normal for her. She has had some nausea. The pain has been in her left lower quadrant and has not migrated. She describes it as a crampy ache. Nothing really makes it better. She said it gets worse whenever she coughs. She came to the emergency department today because she says it was not getting better. In the ER she had an elevated lipase and findings on CT scan consistent with pancreatitis and left lower quadrant colitis. Hospital Course Hospital Course: This is 43 years old female patient with past medical history of asthma depression provoking dependence and alcoholism presented with chief complaint of abdominal pain. CT scan of the abdomen is compatible with acute pancreatitis and she has also mild to moderate thickening of the colon which is compatible with infectious colitis. Her lipase is 3800 and her serologies positive for C. difficile colitis. Patient's managed accordingly with IV hydration pain management and for C. difficile colitis she is getting po vancomycin. While on p.o. vancomycin patient continued to have diarrhea and later added p.o. Flagyl. Currently her diarrhea has subsided. Patient looks deconditions and debilitated she qualifies for less than 30 days inpatient rehab but due to insurance problem she is not able to be placed in rehab center. She is going to have outpatient rehab. I will send her home with 10 days course of p.o. vancomycin and Flagyl. Physical Exam Vital Signs: Temp Pulse Resp BP Pulse Ox 98.3 F 93 16 115/65 98 10/18/18 08:05 10/18/18 08:05 10/18/18 08:05 10/18/18 08:05 10/18/18 08:05 Intake & Output 10/17/18 10/18/18 10/19/18 06:59 06:59 06:59 Intake Total 2480 600 Output Total 700 Balance 1780 600 Weight 63.5 kg 62.1 kg General appearance: PRESENT: no acute distress Head exam: PRESENT: atraumatic Mouth exam: PRESENT: moist, tongue midline Neck exam: ABSENT: carotid bruit, JVD, lymphadenopathy, thyromegaly Respiratory exam: PRESENT: clear to auscultation yadiel. ABSENT: rales, rhonchi, wheezes Pulses: PRESENT: normal dorsalis pedis pul GI/Abdominal exam: PRESENT: normal bowel sounds, soft. ABSENT: distended, guarding, mass, organolmegaly, rebound, tenderness Neurological exam: PRESENT: alert, awake, oriented to time, oriented to situation Results Laboratory Results: 10/17/18 06:40 10/17/18 06:40 Impressions: Abdomen/Pelvis CT 10/12/18 00:00 IMPRESSION: 1. Persistent peripancreatic inflammatory changes all this is i mproved from prior study. 2. Increasing diffuse ascites although the amount remains small to moderate. 3. Small bilateral pleural effusions with associated atelectasis. This has increased from prior study. 4. No pancreatic pseudocyst. No evidence of focal abscess or hemorrhagic transformation of the pancreatitis. Qualifiers - * PATIENT BEING DISCHARGED WITH ANY OF THE FOLLOWING DIAGNOSIS: No Acute Heart Failure Is this a Heart Failure Patient?: No
--- NOTE | 2018-10-18 10:52 | PDOC PROGRESS REPORT ---
Subjective Progress Note for:: 10/18/18 Subjective:: Patient is without complaints. She has been following instructions. She is now able to eat regular diet without any nausea. We discussed in detail plans to avoid all alcohol as outpatient. Reason For Visit: PANCREATITIS, COLITIS, ALCOHOLIC ABUSE Physical Exam Vital Signs: Temp Pulse Resp BP Pulse Ox 98.3 F 93 16 115/65 98 10/18/18 08:05 10/18/18 08:05 10/18/18 08:05 10/18/18 08:05 10/18/18 08:05 Intake & Output 10/17/18 10/18/18 10/19/18 06:59 06:59 06:59 Intake Total 2480 600 Output Total 700 Balance 1780 600 Weight 63.5 kg 62.1 kg General appearance: PRESENT: no acute distress, thin Head exam: PRESENT: normocephalic Respiratory exam: PRESENT: clear to auscultation yadiel, unlabored Cardiovascular exam: PRESENT: RRR Extremities exam: ABSENT: pedal edema Neurological exam: PRESENT: alert, awake Psychiatric exam: PRESENT: appropriate affect Skin exam: PRESENT: normal color Results Laboratory Results: 10/17/18 06:40 10/17/18 06:40 Impressions: Abdomen/Pelvis CT 10/12/18 00:00 IMPRESSION: 1. Persistent peripancreatic inflammatory changes all this is improved from prior study. 2. Increasing diffuse ascites although the amount remains small to moderate. 3. Small bilateral pleural effusions with associated atelectasis. This has increased from prior study. 4. No pancreatic pseudocyst. No evidence of focal abscess or hemorrhagic transformation of the pancreatitis. Assessment & Plan - Diagnosis (1) Pancreatitis, alcoholic, acute Qualifiers: Acute pancreatitis complication: unspecified Qualified Code(s): K85.20 - Alcohol induced acute pancreatitis without necrosis or infection Is this a current diagnosis for this admission?: Yes (2) Anemia, macrocytic, nutritional Is this a current diagnosis for this admission?: Yes (3) Thrombocytopenia Is this a current diagnosis for this admission?: Yes (4) Neutropenia associated with infection Is this a current diagnosis for this admission?: Yes - Plan Summary Plan Summary: She still has some anemia, but WBC and PLT continue to improve. She understands that she should continue to avoid all alcohol. I would like to see her again in a few months to repeat CBC. Otherwise, I will sign off.
[2018-10-18 11:00] VITALS: BP 96/53
[2018-10-18] MEDS: CYANOCOBALAMIN (VITAMIN B-12) 1,000 MCG TABLET PO SCH (11:05)
[2018-10-18] MEDS: FOLIC ACID 1 MG TABLET PO SCH (11:05)
[2018-10-18] MEDS: LACTOBACILLUS ACIDOPHILUS 250 MG TAB PO SCH (11:06)
[2018-10-18] MEDS: THIAMINE HCL 100 MG TABLET PO SCH (11:06)
[2018-10-18] MEDS: POTASSIUM CHLORIDE 10 MEQ CAPSULE.ER PO SCH (11:06)
== END 2018-10-18 11:54 | disposition home or self-care (01) | DRG 439 ==
LOC: ER 04:44 → EH 10:47 → 4S 14:05
PROVIDERS: ADMIT Family Medicine; ATTEND Family Medicine
DX: K85.20 Alcohol induced acute pancreatitis without necrosis or infection (principal); A04.72 Enterocolitis due to Clostridium difficile, not specified as recurrent; G72.1 Alcoholic myopathy; G31.2 Degeneration of nervous system due to alcohol; D69.6 Thrombocytopenia, unspecified; D70.3 Neutropenia due to infection; G62.1 Alcoholic polyneuropathy; D50.9 Iron deficiency anemia, unspecified; F10.20 Alcohol dependence, uncomplicated; F32.9 Major depressive disorder, single episode, unspecified; J45.909 Unspecified asthma, uncomplicated; R53.81 Other malaise; F17.200 Nicotine dependence, unspecified, uncomplicated; R25.1 Tremor, unspecified; F10.220 Alcohol dependence with intoxication, uncomplicated; E87.6 Hypokalemia; E16.2 Hypoglycemia, unspecified; R00.0 Tachycardia, unspecified; F41.9 Anxiety disorder, unspecified; Z59.9 Problem related to housing and economic circumstances, unspecified; Z98.84 Bariatric surgery status; Z81.1 Family history of alcohol abuse and dependence; Z91.010 Allergy to peanuts
CPT/HCPCS: 36415; 74177; 80048; 80053; 80307; 82140; 82533; 82607; 82728; 82746; 82962; 83540; 83550; 83690; 84443; 84703; 85025; 85027; 85045; 85610; 85730; 87493; 96361; 96374; 96375; 99285; J0744; J1170; J1439; J1885; J1940; J2060; J2270; J2405; J3360; J3370; J3411; J3480; J3490; J7030; J7042; J7050; J7120

== ENCOUNTER 2018-10-25 19:38 | Emergency (ER) | payer OTHER ==
--- NOTE | 2018-10-25 20:32 | ER Document Report ---
ED General - General Chief Complaint: Abdominal Pain Stated Complaint: ABDOMINAL PAIN Time Seen by Provider: 10/25/18 20:05 Notes: 43-year-old female with history of alcoholism last drink 3 weeks ago, C. difficile still currently taking Flagyl, and recent admission for pancreatitis sent over from the [facility] for concern for liver failure. Her doctor there was concern based on her recent history and her appearance that she needed a comprehensive work-up. In the office she had a T-max of 102 but is now afebrile, she complains of right upper quadrant abdominal pain, bilateral lower extremity edema with ecchymosis on her left foot, profuse diarrhea. She denies any dizziness or lightheadedness, nausea, shortness of breath or chest pain, complains of severe weakness to the point she cannot walk, states her diarrhea is profuse and runs out of her diaper, denies any urinary symptoms, denies any numbness or paresthesias in any of her extremities. TRAVEL OUTSIDE OF THE [place] IN LAST 30 DAYS: No - Related Data Allergies/Adverse Reactions: Penicillins Allergy (Verified 07/10/18 14:44) Past Medical History - Social History Smoking Status: Current Every Day Smoker Chew tobacco use (# tins/day): No Frequency of alcohol use: None Drug Abuse: Bath salts Family History: Hypertension, Other - Breast cancer Patient has suicidal ideation: No Patient has homicidal ideation: No - Past Medical History Cardiac Medical History: Reports: Hx Congestive Heart Failure Pulmonary Medical History: Reports: Hx Asthma Renal/ Medical History: Denies: Hx Peritoneal Dialysis Musculoskeletal Medical History: Reports Hx Muscle Spasm Psychiatric Medical History: Reports: Hx Anxiety, Hx Depression Past Surgical History: Reports: Hx Abdominal Surgery - gastric bypass, Hx Cholecystectomy, Hx Gastric Bypass Surgery - Immunizations Immunizations up to date: Yes Review of Systems - Review of Systems Constitutional: See HPI Cardiovascular: See HPI Respiratory: See HPI Gastrointestinal: See HPI Genitourinary: See HPI Musculoskeletal: See HPI Hematologic/Lymphatic: See HPI Neurological/Psychological: See HPI Physical Exam - Vital signs Vitals: Temp Pulse Resp BP Pulse Ox 98.9 F 105 H 16 99/68 L 99 10/25/18 19:47 10/25/18 19:47 10/25/18 19:47 10/25/18 19:47 10/25/18 19:47 - Notes Notes: PHYSICAL EXAMINATION: Reviewed vital signs and charting by RN GENERAL: Well-appearing, well-nourished and in no acute distress. HEAD: Atraumatic, normocephalic. No scalp deformity, depression, or crepitance. EYES: Pupils are 3 mm and equal/round/reactive to light, extraocular movements intact, scleral icterus, conjunctiva are normal. ENT: Nares patent bilaterally, oropharynx clear without exudates or palatal petechia. Moist mucous membranes. LUNGS: Breath sounds present, equal, and clear to auscultation bilaterally. No wheezes, rales, or rhonchi. HEART: Regular rate and rhythm without murmurs, rubs, or gallops. 2+ peripheral pulses. Normal capillary refill. ABDOMEN: Soft, right upper quadrant tenderness to palpation, mildly distended. Normoactive bowel sounds. No guarding, no rebound. No masses appreciated. BACK: Normal contour, no midline tenderness. Rectal exam deferred. PELVC: Deferred. EXTREMITIES: Normal range of motion, no pitting or edema. No cyanosis. NEUROLOGICAL: No focal neurological deficits. Moves all extremities spontaneously and on command. PSYCH: Normal mood, normal affect. No suicidal thoughts/ideations. No homocidal thoughts/ideations. No hallucinations. SKIN: Warm, dry, normal turgor, mild jaundice Course - Re-evaluation Re-evalutation: 10/25/18 20:32 Patient appears well overall, nontoxic. Patient states that her doctor believes she is in liver failure and was sent to here. 10/25/18 23:30 Work-up complete. Her white blood cell count has improved from October 17, CMP does not show any evidence that she is in liver failure, her PT is elevated at 16.9. An abdominal ultrasound was completed which showed hepatic steatosis consistent with previous CTs. I discussed the case with Dr. Sullivan who agreed that there is no reason for hospitalization for emergent interventions at this time. Patient's vital signs have been within normal limits during her stay. She is stable for discharge - Vital Signs Vital signs: Temp Pulse Resp BP Pulse Ox 97 F L 98 20 100/78 100 10/25/18 23:32 10/25/18 23:32 10/25/18 23:32 10/25/18 23:32 10/25/18 23:32 - Laboratory Result Diagrams: 10/25/18 20:50 10/25/18 20:50 Laboratory results interpreted by me: 10/25/18 10/25/18 10/25/18 20:50 20:50 20:50 WBC 3.7 L RBC 3.21 L Hgb 11.0 L Hct 33.3 L MCV 104 H MCH 34.3 H RDW 14.6 H PT 16.9 H Sodium 135.7 L BUN < 2 L Creatinine 0.36 L Direct Bilirubin 0.7 H AST 74 H Albumin 3.0 L Lipase 370.1 H Discharge - Discharge Clinical Impression: Rib pain on right side Diarrhea Qualifiers: Diarrhea type: unspecified type Qualified Code(s): R19.7 - Diarrhea, unspecified Condition: Stable Disposition: HOME, SELF-CARE Additional Instructions: You are seen in emergency depart for lower right rib pain and concern for liver failure. Your work-up did not show any evidence that your liver failure. This is all very reassuring. Your white blood cell count is actually improved from previous labs at the [facility]. Liver biochemical testing was grossly normal. Finished taking your Flagyl and follow-up with the primary doctor to discuss if any further interventions need to be done with respect to your diarrhea. Please continue to drink fluids. If you become severely dizzy or lightheaded, pass out, have severe chest pain breath, have bloody vomiting or bloody diarrhea, have paralysis in one or more of your extremities, please return to emergency department for reevaluation.
[2018-10-25 21:08] LABS: ABSOLUTE EOSINOPHILS # (AUTO) 0.1 10^3/uL (0.0-0.6); ABSOLUTE LYMPHOCYTES (AUTO) 0.8 10^3/uL (0.5-4.7); ABSOLUTE MONOCYTES (AUTO) 0.4 10^3/uL (0.1-1.4); ABSOLUTE NEUT (AUTO) 2.4 10^3/uL (1.7-8.2); BASOPHILS % (AUTO) 0.3 % (0-2); EOSINOPHILS % (AUTO) 2.1 % (0-6); HEMATOCRIT 33.3 % (36.0-47.0); MEAN CORPUSCULAR HEMOGLOBIN 34.3 pg (27.0-33.4); MEAN CORPUSCULAR HGB CONC 33.1 g/dL (32.0-36.0); MEAN CORPUSCULAR VOLUME 104 fl (80-97); MONOCYTES % (AUTO) 11.5 % (3-13); PLATELET COUNT 275 10^3/uL (150-450); RED BLOOD COUNT 3.21 10^6/uL (3.72-5.28); RED CELL DISTRIBUTION WIDTH 14.6 % (11.5-14.0); SEGMENTED NEUTROPHILS % (AUTO) 64.1 % (42-78); TOTAL CELLS COUNTED % (AUTO) 100 %; WHITE BLOOD COUNT 3.7 10^3/uL (4.0-10.5)
[2018-10-25 21:13] LABS: PROTHROMBIN TIME 16.9 SEC (11.4-15.4)
[2018-10-25 21:32] LABS: ALANINE AMINOTRANSFERASE 15 U/L (9-52); ALKALINE PHOSPHATASE 117 U/L (38-126); ANION GAP 8 (5-19); ASPARTATE AMINO TRANSFERASE 74 U/L (14-36); BILIRUBIN,DIRECT 0.7 mg/dL (0.0-0.4); BILIRUBIN,TOTAL 1.1 mg/dL (0.2-1.3); CALCIUM 8.7 mg/dL (8.4-10.2); CARBON DIOXIDE 27 mmol/L (22-30); CHLORIDE 101 mmol/L (98-107); GLUCOSE 110 mg/dL (75-110); LIPASE 370.1 U/L (23-300); POTASSIUM 3.7 mmol/L (3.6-5.0); SODIUM 135.7 mmol/L (137-145); TOTAL PROTEIN 7.1 g/dL (6.3-8.2)
[2018-10-25 21:33] LABS: BLOOD UREA NITROGEN < 2 mg/dL (7-20)
--- NOTE | 2018-10-25 21:36 | RADIOLOGY REPORT (SQ) ---
EXAM DESCRIPTION: XR CHEST 1 VIEW COMPLETED DATE/TME: 10/25/2018 20:48 CLINICAL HISTORY: 43 years Female RUQ rib pain COMPARISON: None. FINDINGS: The cardiomediastinal silhouette appears unremarkable. No consolidating infiltrates or pleural effusions. No pneumothorax. IMPRESSION: No acute abnormality is identified.
--- NOTE | 2018-10-25 22:28 | RADIOLOGY REPORT (SQ) ---
US ABDOMEN LIMITED HISTORY: Right upper quadrant pain. COMPARISON: None. TECHNIQUE: Grayscale and color Doppler imaging of the right upper quadrant was performed. FINDINGS: Increased echogenicity of the hepatic parenchyma with decreased through transmission and poor visualization of the portal triads, suggesting hepatic steatosis. The main portal vein has normal hepatopetal flow. There is been a prior cholecystectomy. The common bile duct measures 8 mm. The pancreas is not well-visualized due to overlying bowel gas. No hydronephrosis or shadowing renal stones are identified. The right kidney is normal in size. The visualized portions of the IVC and aorta are patent. IMPRESSION: 1. Hepatic steatosis. 2. Prior cholecystectomy.
[2018-10-25 23:33] VITALS: BP 100/78
[2018-10-25 23:50] LABS: APPEARANCE,URINE CLEAR; BILIRUBIN,URINE NEGATIVE (NEGATIVE); COLOR,URINE YELLOW; GLUCOSE, URINE NEGATIVE (NEGATIVE); KETONES,URINE NEGATIVE (NEGATIVE); LEUKOCYTE ESTERASE,URINE NEGATIVE (NEGATIVE); NITRITE,URINE NEGATIVE (NEGATIVE); PROTEIN,URINE NEGATIVE (NEGATIVE); URINE SPECIFIC GRAVITY 1.006; UROBILINOGEN,URINE NEGATIVE mg/dL (<2.0)
== END 2018-10-26 00:15 | disposition home or self-care (01) ==
LOC: ER 19:38
DX: A04.72 Enterocolitis due to Clostridium difficile, not specified as recurrent (principal); R07.81 Pleurodynia; K76.0 Fatty (change of) liver, not elsewhere classified; F10.20 Alcohol dependence, uncomplicated; R10.11 Right upper quadrant pain; R60.0 Localized edema; R58 Hemorrhage, not elsewhere classified; R53.1 Weakness; F17.200 Nicotine dependence, unspecified, uncomplicated; J45.909 Unspecified asthma, uncomplicated; Z98.84 Bariatric surgery status; Z90.49 Acquired absence of other specified parts of digestive tract; Z87.19 Personal history of other diseases of the digestive system; Z88.0 Allergy status to penicillin
CPT/HCPCS: 36415; 71045; 76705; 80053; 81001; 81025; 83605; 83690; 85025; 85610; 87040; 99284

== ENCOUNTER 2018-11-07 00:41 | Emergency (ER) | payer OTHER ==
[2018-11-07] MEDS ORDERED: NORMAL SALINE 1000 ML 1,000 ML IV ONE ×2 (01:12→04:47)
[2018-11-07] MEDS ORDERED: ONDANSETRON HCL INJ/PF 4 MG/2 ML SDV IV ONE (01:12)
--- NOTE | 2018-11-07 01:29 | ER Document Report ---
ED General - General Chief Complaint: Abdominal Pain Stated Complaint: ABDOMINAL PAIN Time Seen by Provider: 11/07/18 01:12 Primary Care Provider: [facility] [Provider Group] - Follow up in 3-5 days TRAVEL OUTSIDE OF THE [place] IN LAST 30 DAYS: No - HPI Notes: Patient is a 43-year-old female that presents to the emergency department for chief complaint of abdominal pain. Patient reports starting to have fevers this afternoon. She reports shaking chills and feeling hot. She did not take her temperature at home. She then started having epigastric pain that radiates around her right upper quadrant. She reports nausea with no vomiting. She reports 10 episodes of diarrhea today. Patient has a history of alcohol induced pancreatitis and states she has not dr ink alcohol in the last 30 days. She states the pain she is experiencing now is much more mild than her pancreatitis pain. She has tried Tylenol and Advil at home. Her last dose of Tylenol was 1.5 hours prior to coming in. Patient also took Pepto which gave her some symptomatic relief. She denies any aggravating factors. She denies any current antibiotic use. She does have a history of C. difficile in the past as well. She denies any bloody stools. Past Medical History: Anemia, CHF, fatty liver Past Surgical History: Cholecystectomy, gastric bypass 12 years ago Social History: History of alcohol abuse quit 30 days ago. Daily tobacco. Denies drug use Family History: Reviewed and noncontributory for presenting illness Allergies: Reviewed, see documented allergy list. REVIEW OF SYSTEMS: CONSTITUTIONAL : fever No chills No diaphoresis No recent illness EENT: No vision changes No congestion No sore throat CARDIOVASCULAR: No chest pain No palpitations RESPIRATORY: No shortness of breath No cough No difficulty breathing GASTROINTESTINAL: abdominal pain nausea No vomiting diarrhea GENITOURINARY: No dysuria No hematuria No difficulty urinating MUSCULOSKELETAL: No back pain No leg pain No arm pain SKIN: No rashes No lesions LYMPHATIC: No swollen, enlarged glands. NEUROLOGICAL: No lightheadedness No headache No weakness No paresthesias PSYCHIATRIC: No anxiety No depression PHYSICAL EXAMINATION: Vital signs reviewed, nursing noted reviewed. GENERAL: Well-appearing, well-nourished and in no acute distress. HEAD: Atraumatic, normocephalic. EYES: Eyes appear normal, extraocular movements intact, sclera anicteric, conjunctiva are normal. ENT: nares patent, oropharynx clear without exudates. Mildly dry mucous m embranes. NECK: Normal range of motion, supple without lymphadenopathy LUNGS: Breath sounds clear to auscultation bilaterally and equal. No wheezes rales or rhonchi. HEART: Regular rate and rhythm without murmurs ABDOMEN: Soft, epigastric and right upper quadrant tenderness. No rebound, guarding, or rigidity. No masses appreciated. EXTREMITIES: Nontender, good range of motion, no pitting or edema. NEUROLOGICAL: No focal neurological deficits. Moves all extremities spontaneously Motor and sensory grossly intact on exam. PSYCH: Normal mood, normal affect. SKIN: Warm, Dry, normal turgor, no rashes or lesions noted on exposed skin - Related Data Allergies/Adverse Reactions: Penicillins Allergy (Verified 07/10/18 14:44) Past Medical History - Social History Smoking Status: Never Smoker Family History: Hypertension, Other - Breast cancer - Past Medical History Cardiac Medical History: Reports: Hx Congestive Heart Failure Pulmonary Medical History: Reports: Hx Asthma Renal/ Medical History: Denies: Hx Peritoneal Dialysis Musculoskeletal Medical History: Reports Hx Muscle Spasm Psychiatric Medical History: Reports: Hx Anxiety, Hx Depression Past Surgical History: Reports: Hx Abdominal Surgery - gastric bypass, Hx Cholecystectomy, Hx Gastric Bypass Surgery - Immunizations Immunizations up to date: Yes Physical Exam - Vital signs Vitals: Temp Pulse Resp BP Pulse Ox 98.3 F 107 H 22 H 89/57 L 98 11/07/18 00:49 11/07/18 00:49 11/07/18 00:49 11/07/18 00:49 11/07/18 00:49 Course - Re-evaluation Re-evalutation: 11/07/18 01:28 Vitals reviewed. Nursing notes reviewed. patient's blood pressure is low and she has dry mucous membranes, she was started on IV hydration. Patient given medicine for symptomatic management. Is on telemetry monitoring. 11/07/18 04:48 Patient's blood pressure has improved after 1 L of fluids however she is still feeling lightheaded. She will be given a second liter of IV fluids for her dehydration. Her blood work shows normal lipase with no electrolyte derangements. Alcohol intoxication's are negative. Urinalysis negative for infection. CT scan shows improving symptoms related to her recent pancreatitis. She does have some changes in her colon consistent with colitis. Patient has been on Flagyl for the last few weeks for C. difficile but states that her prescription was finished about 2 weeks ago. She does not have a leukocytosis and has not been able to produce a stool sample in the ED. 11/07/18 05:57 Chart review shows patient's blood pressure generally runs in the low 100s to mid 90s. After 2 L of fluid she is now 95/66. Patient will be discharged home in stable condition. She was counseled on increasing oral intake to stay well- hydrated. She will be provided a C. difficile test to do as an outpatient since she has not been able to provide a sample in the ED. She is stable at discharge. Laboratory 11/07/18 11/07/18 11/07/18 01:30 01:30 02:08 WBC 4.0 RBC 3.43 L Hgb 11.5 L Hct 34.4 L MCV 101 H MCH 33.5 H MCHC 33.4 RDW 14.2 H Plt Count 193 Seg Neutrophils % 83.6 H Lymphocytes % 9.6 L Monocytes % 6.5 Eosinophils % 0.1 Basophils % 0.2 Absolute Neutrophils 3.3 Absolute Lymphocytes 0.4 L Absolute Monocytes 0.3 Absolute Eosinophils 0.0 Absolute Basophils 0.0 Sodium 136.2 L Potassium 3.6 Chloride 104 Carbon Dioxide 23 Anion Gap 9 BUN 2 L Creatinine 0.44 L Est GFR ( Amer) > 60 Est GFR (Non-Af Amer) > 60 Glucose 109 Lactic Acid 1.8 Calcium 8.6 Total Bilirubin 0.6 Direct Bilirubin 0.4 Neonat Total Bilirubin Not Reportable Neonat Direct Bilirubin Not Reportable Neonat Indirect Bili Not Reportable AST 66 H ALT 23 Alkaline Phosphatase 117 Total Protein 6.7 Albumin 2.9 L Lipase 207.5 Urine Color Urine Appearance Urine pH Ur Specific [place] Urine Protein Urine Glucose (UA) Urine Ketones Urine Blood Urine Nitrite Urine Bilirubin Urine Urobilinogen Ur Leukocyte Esterase Urine WBC (Auto) Urine Bacteria (Auto) Squamous Epi Cells Auto Urine Ascorbic Acid Urine Opiates Screen Urine Methadone Screen Ur Barbiturates Screen Ur Phencyclidine Scrn Ur Amphetamines Screen U Benzodiazepines Scrn Urine Cocaine Screen U Marijuana (THC) Screen Serum Alcohol < 10 11/07/18 11/07/18 02:30 02:30 WBC RBC Hgb Hct MCV MCH MCHC RDW Plt Count Seg Neutrophils % Lymphocytes % Monocytes % Eosinophils % Basophils % Absolute Neutrophils Absolute Lymphocytes Absolute Monocytes Absolute Eosinophils Absolute Basophils Sodium Potassium Chloride Carbon Dioxide Anion Gap BUN Creatinine Est GFR ( Amer) Est GFR (Non-Af Amer) Glucose Lactic Acid Calcium Total Bilirubin Direct Bilirubin Neonat Total Bilirubin Neonat Direct Bilirubin Neonat Indirect Bili AST ALT Alkaline Phosphatase Total Protein Albumin Lipase Urine Color YELLOW Urine Appearance CLEAR Urine pH 5.0 Ur Specific [place] 1.005 Urine Protein NEGATIVE Urine Glucose (UA) NEGATIVE Urine Ketones NEGATIVE Urine Blood SMALL H Urine Nitrite NEGATIVE Urine Bilirubin NEGATIVE Urine Urobilinogen NEGATIVE Ur Leukocyte Esterase NEGATIVE Urine WBC (Auto) 1 Urine Bacteria (Auto) TRACE Squamous Epi Cells Auto 1 Urine Ascorbic Acid NEGATIVE Urine Opiates Screen NEGATIVE Urine Methadone Screen NEGATIVE Ur Barbiturates Screen NEGATIVE Ur Phencyclidine Scrn NEGATIVE Ur Amphetamines Screen NEGATIVE U Benzodiazepines Scrn NEGATIVE Urine Cocaine Screen NEGATIVE U Marijuana (THC) Screen NEGATIVE Serum Alcohol - Vital Signs Vital signs: Temp Pulse Resp BP Pulse Ox 98.3 F 107 H 20 80/45 L 100 11/07/18 00:49 11/07/18 00:49 11/07/18 05:01 11/07/18 05:00 11/07/18 05:01 - Laboratory Result Diagrams: 11/07/18 01:30 11/07/18 01:30 Laboratory results interpreted by me: 11/07/18 11/07/18 11/07/18 01:30 01:30 02:30 RBC 3.43 L Hgb 11.5 L Hct 34.4 L MCV 101 H MCH 33.5 H RDW 14.2 H Seg Neutrophils % 83.6 H Lymphocytes % 9.6 L Absolute Lymphocytes 0.4 L Sodium 136.2 L BUN 2 L Creatinine 0.44 L AST 66 H Albumin 2.9 L Urine Blood SMALL H Discharge - Discharge Clinical Impression: Dehydration, Orthostasis Abdominal pain Qualifiers: Abdominal location: upper abdomen, unspecified Qualified Code(s): R10.10 - Upper abdominal pain, unspecified Condition: Stable Disposition: HOME, SELF-CARE Instructions: Abdominal Pain ([facility]), Dehydration ([facility]), Orthostatic Hypotension ([facility]) Additional Instructions: Please return to the emergency department if you have any worsening, or concern of your symptoms. Please return to the emergency department if you develop chest pain, difficulty breathing, severe abdominal pain, or ongoing vomiting. Please follow-up with your primary care physician in 2-3 days and any other recommended physicians. If prescribed, take all medications as directed. If you have any questions or concerns do not hesitate to return the emergency department for evaluation. Forms: Follow-Up Laboratory Testing Referrals: [facility] [Provider Group] - Follow up in 3-5 days
[2018-11-07 02:00] LABS: ALANINE AMINOTRANSFERASE 23 U/L (9-52); ALBUMIN 2.9 g/dL (3.5-5.0); ALKALINE PHOSPHATASE 117 U/L (38-126); ANION GAP 9 (5-19); ASPARTATE AMINO TRANSFERASE 66 U/L (14-36); BILIRUBIN,DIRECT 0.4 mg/dL (0.0-0.4); BILIRUBIN,TOTAL 0.6 mg/dL (0.2-1.3); BLOOD UREA NITROGEN 2 mg/dL (7-20); CALCIUM 8.6 mg/dL (8.4-10.2); CARBON DIOXIDE 23 mmol/L (22-30); CHLORIDE 104 mmol/L (98-107); GLUCOSE 109 mg/dL (75-110); LIPASE 207.5 U/L (23-300); POTASSIUM 3.6 mmol/L (3.6-5.0); SODIUM 136.2 mmol/L (137-145); TOTAL PROTEIN 6.7 g/dL (6.3-8.2)
[2018-11-07 02:01] LABS: ALCOHOL < 10 mg/dL (NONE DETECTED)
[2018-11-07 02:08] LABS: ABSOLUTE LYMPHOCYTES (AUTO) 0.4 10^3/uL (0.5-4.7); ABSOLUTE MONOCYTES (AUTO) 0.3 10^3/uL (0.1-1.4); ABSOLUTE NEUT (AUTO) 3.3 10^3/uL (1.7-8.2); BASOPHILS % (AUTO) 0.2 % (0-2); EOSINOPHILS % (AUTO) 0.1 % (0-6); HEMATOCRIT 34.4 % (36.0-47.0); HEMOGLOBIN 11.5 g/dL (12.0-15.5); LYMPHOCYTES % (AUTO) 9.6 % (13-45); MEAN CORPUSCULAR HEMOGLOBIN 33.5 pg (27.0-33.4); MEAN CORPUSCULAR HGB CONC 33.4 g/dL (32.0-36.0); MEAN CORPUSCULAR VOLUME 101 fl (80-97); MONOCYTES % (AUTO) 6.5 % (3-13); PLATELET COUNT 193 10^3/uL (150-450); RED BLOOD COUNT 3.43 10^6/uL (3.72-5.28); RED CELL DISTRIBUTION WIDTH 14.2 % (11.5-14.0); SEGMENTED NEUTROPHILS % (AUTO) 83.6 % (42-78); TOTAL CELLS COUNTED % (AUTO) 100 %
[2018-11-07 03:02] LABS: APPEARANCE,URINE CLEAR; BILIRUBIN,URINE NEGATIVE (NEGATIVE); COLOR,URINE YELLOW; GLUCOSE, URINE NEGATIVE (NEGATIVE); KETONES,URINE NEGATIVE (NEGATIVE); LEUKOCYTE ESTERASE,URINE NEGATIVE (NEGATIVE); NITRITE,URINE NEGATIVE (NEGATIVE); PROTEIN,URINE NEGATIVE (NEGATIVE); URINE SPECIFIC GRAVITY 1.005; UROBILINOGEN,URINE NEGATIVE mg/dL (<2.0)
[2018-11-07 03:11] LABS: URINE AMPHETAMINES SCREEN NEGATIVE; URINE BARBITURATES SCREEN NEGATIVE; URINE BENZODIAZEPINES SCREEN NEGATIVE; URINE COCAINE SCREEN NEGATIVE; URINE MARIJUANA (THC) SCREEN NEGATIVE; URINE METHADONE SCREEN NEGATIVE; URINE PHENCYCLIDINE SCREEN NEGATIVE
--- NOTE | 2018-11-07 04:04 | RADIOLOGY REPORT (SQ) ---
EXAM DESCRIPTION: CT ABDOMEN PELVIS WITH IV CONTRAST COMPLETED DATE/TME: 11/07/2018 02:08 CLINICAL HISTORY: epigastric pain COMPARISON: 10/12/2018 TECHNIQUE: CT of the abdomen and pelvis performed following IV administration of 61 mL of Omnipaque 350. DLP: 541.32 mGycm FINDINGS: Lung Bases: Mild bibasilar dependent atelectasis. Bones: Mild degenerative change of the lumbar spine. Abdomen: Liver: The liver has normal size and density. No intrahepatic mass or biliary dilatation. Gallbladder: Prior cholecystectomy. Spleen, Pancreas, and Adrenal Glands: Minimal peripancreatic inflammatory change which is decreased from the comparison study. No well-circumscribed peripancreatic fluid collection or evidence of pancreatic necrosis. The spleen and adrenal glands are unremarkable. Kidneys: The kidneys have normal size and contour without evidence of solid mass or hydronephrosis. Vasculature: Aortoiliac atherosclerosis. IVC is unremarkable. The portal vein is patent. The proximal visceral and renal arteries are patent. Stomach: Prior gastric bypass. Other: No free intraperitoneal air. Normal free fluid. Pelvis: Bladder: Urinary bladder is unremarkable. Bowel: Mild prominent loops of small bowel with mild small bowel wall thickening. No distally decompressed loops of small bowel or transition point identified. Mild wall thickening of the ascending colon. Appendix: Normal appendix. Pelvis: Uterus is not enlarged. IMPRESSION: 1. Interval decrease in now very mild peripancreatic inflammatory change. Near complete resolution of free fluid in the abdomen. These findings may represent resolving pancreatitis however superimposed acute pancreatitis is not excluded. No evidence of well-circumscribed peripancreatic fluid collection or pancreatic necrosis. Correlation with serum lipase recommended. 2. Mild prominence of the small bowel as well as mild small bowel wall thickening and wall thickening of the ascending colon. These findings could be seen with nonspecific enterocolitis. This could be of infectious or inflammatory etiology. This exam was performed according to our departmental dose-optimization program, which includes automated exposure control, adjustment of the mA and/or kV according to patient size and/or use of iterative reconstruction technique.
[2018-11-07 06:15] VITALS: BP 95/66
== END 2018-11-07 06:20 | disposition home or self-care (01) ==
LOC: ER 00:41
DX: E86.0 Dehydration (principal); I95.1 Orthostatic hypotension; R10.13 Epigastric pain; R10.11 Right upper quadrant pain; I50.9 Heart failure, unspecified; D64.9 Anemia, unspecified; Z90.49 Acquired absence of other specified parts of digestive tract; Z98.84 Bariatric surgery status; Z88.0 Allergy status to penicillin
CPT/HCPCS: 99284; 96360; 96361; 36415; 87040; 87086; 80307 ×2; 83690; 85025; 87088; 80053; 81001; 87186; 83605; 74177; J7030

== ENCOUNTER → 2019-01-09 | Outpatient (CLI) | payer OTHER ==
[2019-01-09 14:47] LABS: FOLATE 3.58 ng/mL (>2.76)
== END ==
LOC: CCC 12:54
DX: Z98.0 Intestinal bypass and anastomosis status (principal)
CPT/HCPCS: 36415; 82607; 82746; 83090; 83921